=== PATIENT | male | born 1945 | race Caucasian/White ===

== ENCOUNTER 2017-05-10 21:02 | Emergency (ER) | payer MEDICARE, MEDICAID ==
[2017-05-10 21:02] VITALS: BMI 29.2
[2017-05-10 21:13] VITALS: BP 104/70; PULSE 91; RESP 18; TEMP 98.1; O2SAT 97
--- NOTE | 2017-05-10 21:56 | C.PDOC ---
History Of Present Illness 72 year old male with a Hx of CAD, CABG, cataract surgery, and rheumatoid arthritis presents to the ER with a complaint of redness to the right eye. Patient states he went for a nap at approximately 15:00 in the afternoon and when he woke up at approximately 17:00 he noted a reddish discoloration involving the whites of his eyes. Patient notes he has been sneezing lately and has a Hx of COPD on home oxygen. Denies visual disturbances, ocular pain, ocular discharge, or recent trauma. Chief Complaint (Nursing): ENT Problem History Per: Patient History/Exam Limitations: no limitations Onset/Duration Of Symptoms: Hrs Current Symptoms Are (Timing): Still Present Recent travel outside of the [place]: No Past Medical History Reviewed: Historical Data, Nursing Documentation, Vital Signs Vital Signs: Last Vital Signs Temp 98.1 F 05/10/17 21:13 Pulse 91 H 05/10/17 21:13 Resp 18 05/10/17 21:13 BP 104/70 05/10/17 21:13 Pulse Ox 97 05/10/17 23:10 - Medical History PMH: Alzheimer's Disease, Arthritis, Asthma, Back Problems, CAD, COPD, Diabetes , Fractures, HTN, Hyperlipidemia, Sleep Apnea Surgical History: Back Surgery (T-spine), CABG - [facility] Procedures ASSISTANCE WITH RESPIRATORY VENTILATION, 24-96 HRS (05/24/15) ASSISTANCE WITH RESPIRATORY VENTILATION, <24 HRS, CPAP (07/31/15) EXERCISE TRMT MUSCULOSK LOW BACK/LE W ASSIST EQUIP (03/02/16) EXTRACTION OF ILIAC BONE MARROW, PERCUTANEOUS APPROACH (06/27/15) FUSION 2-7 T JT W AUTOL SUB, POST APPR P COL, OPEN (06/27/15) GAIT TRAINING/AMBULAT TREATMENT USING ASSIST EQUIPMENT (03/02/16) HOME MANAGEMENT TREATMENT USING ASSIST EQUIPMENT (03/02/16) INTRODUCTION OF SERUM/TOX/VACCINE INTO MUSCLE, PERC APPROACH (07/31/15) ROM & JT MOBILITY TRMT MUSCULOSK LOW BACK/LE W ASSIST EQUIP (03/02/16) TRANSFUSE NONAUT PLATELETS IN PERIPH VEIN, PERC (06/25/16) TRANSFUSE NONAUT RED BLOOD CELLS IN PERIPH VEIN, PERC (06/25/16) Family History: States: Unknown Family Hx - Social History Hx Tobacco Use: Yes Hx Alcohol Use: No Hx Substance Use: No - Immunization History Hx Influenza Vaccination: Yes Review Of Systems Constitutional: Negative for: Fever, Chills Eyes: Positive for: Other (Conjunctival hemorrhage). Negative for: Pain, Vision Change Physical Exam - Physical Exam Appears: Non-toxic, No Acute Distress Skin: Normal Color, Warm, Dry Head: Atraumatic, Normacephalic Eye(s): bilateral: Normal Inspection (Lens replacement noted), PERRL, EOMI, right: Other (Reddish discoloration consistent with subconjunctival hemorrhage) Ear(s): Bilateral: Normal Nose: Normal Oral Mucosa: Moist Throat: Normal, No Erythema Neck: Normal, Supple Chest: Symmetrical Cardiovascular: Rhythm Regular Respiratory: No Rales, No Rhonchi, Wheezing (Expiratory) Gastrointestinal/Abdominal: Soft, No Tenderness Extremity: Deformity ([place] neck consistent with rheumatoid arthritis to bilateral upper extremities) Neurological/Psych: Oriented x3, Normal Speech, Normal Cranial Nerves ED Course And Treatment O2 Sat by Pulse Oximetry: 97 (Room air) Pulse Ox Interpretation: Normal Medical Decision Making Medical Decision Making: Impression: Nontraumatic subconjunctival hemorrhage, patient is safe and stable for discharge. Disposition - Disposition Referrals: [facility] at [facility] [Outside] Disposition: HOME/ ROUTINE Disposition Time: 00:49 Condition: GOOD Instructions: Subconjunctival Hemorrhage (ED) Forms: [facility] (Monegasque) Print Language: VENEZU[place] - Clinical Impression Clinical Impression: Subconjunctival hemorrhage - Scribe Statement The provider has reviewed the documentation as recorded by the Scribe Perico Horan All medical record entries made by the Scribe were at my direction and personally dictated by me. I have reviewed the chart and agree that the record accurately reflects my personal performance of the history, physical exam, medical decision making, and the department course for this patient. I have also personally directed, reviewed, and agree with the discharge instructions and disposition.
== END 2017-05-10 22:17 | disposition home or self-care (01) ==
LOC: C.ER 21:02
DX: H11.31 Conjunctival hemorrhage, right eye (principal)

== ENCOUNTER 2017-06-18 14:21 | Inpatient (IN) | payer MEDICARE, MEDICAID ==
[2017-06-18 14:48] VITALS: BMI 28.8
[2017-06-18] MEDS ORDERED: Albuterol-Ipratrop 3 mg / 0.5 (3 ml) UD IH STA ×2 (16:21→16:24)
[2017-06-18] MEDS ORDERED: Albuterol 0.083% Inhal Sol (2.5 mg/3 mL) UD IH STA (16:24)
[2017-06-18 16:42] LABS: LYMPH # 0.9 K/uL (1.0-4.3); MEAN CORPUSCULAR HGB CONC 31.9 g/dL (33.0-37.0); MEAN PLATELET VOLUME 11.6 fL (7.2-11.7); MONO # 0.9 K/uL (0.0-0.8)
--- NOTE | 2017-06-18 16:50 | RAD ---
PROCEDURE: CHEST RADIOGRAPH, 1 VIEW HISTORY: SOB COMPARISON: 06/11/2013 FINDINGS: LUNGS: Bibasilar opacities present - mostly strandy type. Discoid atelectasis and scarring suggested. Concomitant patchy bibasilar infiltrates also possible. The prior left lateral opacity - now appears more pleural-parenchymal. Concomitant right inferolateral pleural thickening blends with right basal patchy opacity. An element of concomitant thick emphysematous changes and bibasilar bronchiectasis suspect PLEURA: No pneumothorax. Interval progressive inferolateral pleural thickening with bibasilar strandy atelectatic changes and/or fibrosis suggested. CARDIOVASCULAR: Mild cardiomegaly OSSEOUS STRUCTURES: Interval thoracic fusion hardware single frontal view available -. VISUALIZED UPPER ABDOMEN: Normal. OTHER FINDINGS: Right hemidiaphragm is asymmetrically elevated an interval change compared the prior study. Correlate clinically IMPRESSION: Interval basilar patchy coalescing linear opacities- mixed pathology: Bibasilar fibrosis/scarring with bronchiectasis in bordering inferolateral pleural thickening favored. Interval elevation the right hemidiaphragm - lung volumes now more shallow. Interval thoracic spinal hardware present
[2017-06-18 16:51] LABS: PROTHROMBIN TIME 10.9 SECONDS (9.7-12.2)
[2017-06-18] MEDS ORDERED: Albuterol 0.083% Inhal Sol (2.5 mg/3 mL) UD ONE (16:51)
[2017-06-18] MEDS ORDERED: Albuterol-Ipratrop 3 mg / 0.5 (3 ml) UD ONE (16:52)
[2017-06-18 16:53] LABS: BASO % 0.4 % (0.0-2.0); HEMOGLOBIN 12.1 g/dL (12.0-18.0); MEAN CELL VOLUME 94.5 fL (80.0-94.0); MEAN CORPUSCULAR HEMOGLOBIN 30.2 pg (27.0-31.0); MONO % 13.9 % (0.0-10.0); NEUT # 4.4 K/uL (1.8-7.0); NEUT % 71.7 % (50.0-75.0); NRBC % 0.1 % (0.0-2.0); RBC 4.02 Mil/uL (4.40-5.90); RED CELL DISTRIBUTION WIDTH 20.6 % (11.5-14.5); WHITE BLOOD COUNT 6.1 K/uL (4.8-10.8)
[2017-06-18 16:54] LABS: PLATELET COUNT 103 K/uL (130-400)
[2017-06-18 17:02] LABS: ALB/GLOB RATIO 0.9 (1.0-2.1); ALBUMIN 3.4 g/dL (3.5-5.0); ALT/SGPT 24 U/L (21-72); AST/SGOT 41 U/L (17-59); BLOOD UREA NITROGEN 32 mg/dL (9-20); CALCIUM 8.7 mg/dl (8.6-10.4); GFR AFRICAN-AMERICAN > 60; GFR NON-AFRICAN AMERICAN > 60
--- NOTE | 2017-06-18 17:16 | C.PDOC ---
History Of Present Illness 72 year old male with PMHx of COPD presents to the ED c/o increased SOB and productive cough for the past 5 weeks. Due to patient's COPD history he is on home oxygen, patient reports his oxygen saturation numbers are usually in the high 80s and low 90s. Patient was seen by Dr. Larson who found him to be worse than usual so he was sent here for evaluation. Patient denies CP, back pain, fever, chills, nausea, vomit, diarrhea. Time Seen by Provider: 06/18/17 15:58 Chief Complaint (Nursing): Shortness Of Breath History Per: Patient History/Exam Limitations: no limitations Onset/Duration Of Symptoms: Days Current Symptoms Are (Timing): Still Present Quality: "Pain" Current Respiratory Medications: See Home Med List Associated Symptoms: Productive Cough Recent travel outside of the [place]: No Additional History Per: Patient Past Medical History Reviewed: Historical Data, Nursing Documentation, Vital Signs Vital Signs: Last Vital Signs Temp 98.6 F 06/18/17 14:48 Pulse 80 06/18/17 16:40 Resp 27 H 06/18/17 16:40 BP 104/69 06/18/17 14:48 Pulse Ox 90 L 06/18/17 18:21 - Medical History PMH: Alzheimer's Disease, Arthritis, Asthma, Back Problems, CAD, COPD, Diabetes , Fractures, HTN, Hyperlipidemia, Sleep Apnea Denies: CHF, Hepatitis, HIV, Hypercholesterolemia, Hypothyroidism, Chronic Kidney Disease, Rheumatoid Arthritis, Seizures, Sexually Transmitted Disease Surgical History: Back Surgery (T-spine), CABG - [facility] Procedures ASSISTANCE WITH RESPIRATORY VENTILATION, 24-96 HRS (05/24/15) ASSISTANCE WITH RESPIRATORY VENTILATION, <24 HRS, CPAP (07/31/15) EXERCISE TRMT MUSCULOSK LOW BACK/LE W ASSIST EQUIP (03/02/16) EXTRACTION OF ILIAC BONE MARROW, PERCUTANEOUS APPROACH (06/27/15) FUSION 2-7 T JT W AUTOL SUB, POST APPR P COL, OPEN (06/27/15) GAIT TRAINING/AMBULAT TREATMENT USING ASSIST EQUIPMENT (03/02/16) HOME MANAGEMENT TREATMENT USING ASSIST EQUIPMENT (03/02/16) INTRODUCTION OF SERUM/TOX/VACCINE INTO MUSCLE, PERC APPROACH (07/31/15) ROM & JT MOBILITY TRMT MUSCULOSK LOW BACK/LE W ASSIST EQUIP (03/02/16) TRANSFUSE NONAUT PLATELETS IN PERIPH VEIN, PERC (06/25/16) TRANSFUSE NONAUT RED BLOOD CELLS IN PERIPH VEIN, PERC (06/25/16) Family History: States: Unknown Family Hx - Social History Hx Tobacco Use: Yes Hx Alcohol Use: No Hx Substance Use: No - Immunization History Hx Influenza Vaccination: No Hx Pneumococcal Vaccination: Yes Review Of Systems Constitutional: Negative for: Fever, Chills Cardiovascular: Negative for: Chest Pain, Palpitations Respiratory: Positive for: Cough, Shortness of Breath, Sputum Gastrointestinal: Negative for: Nausea, Vomiting, Abdominal Pain, Diarrhea Genitourinary: Negative for: Dysuria, Hematuria Musculoskeletal: Negative for: Back Pain Skin: Negative for: Rash Neurological: Negative for: Weakness, Numbness, Headache, Dizziness Physical Exam - Physical Exam Appears: Non-toxic, Other (Uncomfortable ) Skin: Normal Color, Warm, Dry Head: Atraumatic, Normacephalic Eye(s): bilateral: Normal Inspection Nose: No Discharge, No Deformity Oral Mucosa: Moist Lips: Other (Mild cyanotic) Neck: Normal ROM, Supple Chest: Symmetrical Cardiovascular: Rhythm Regular, No Murmur Respiratory: Rales (B/L at the bases, L > R), No Rhonchi, No Wheezing Gastrointestinal/Abdominal: Soft, No Tenderness, No Guarding, No Rebound Extremity: Normal ROM, No Pedal Edema, No Calf Tenderness, No Deformity, No Swelling Neurological/Psych: Oriented x3, Normal Speech, Normal Cognition Gait: Steady ED Course And Treatment - Laboratory Results Result Diagrams: 06/18/17 16:33 06/18/17 16:33 ECG Rhythm: Sinus Rhythm, R BBB Rate From EC O2 Sat by Pulse Oximetry: 90 (On RA) - Other Rad CXR X-Ray: Viewed By Me, Read By Radiologist Interpretation: PROCEDURE: CHEST RADIOGRAPH, 1 VIEW. HISTORY: SOB. COMPARISON: 06/11/2013. FINDINGS: LUNGS: Bibasilar opacities present - mostly strandy type. Discoid atelectasis and scarring suggested. Concomitant patchy bibasilar infiltrates also possible. The prior left lateral opacity - now appears more pleural-parenchymal. Concomitant right inferolateral pleural thickening blends with right basal patchy opacity. An element of concomitant thick emphysematous changes and bibasilar bronchiectasis suspect. PLEURA: No pneumothorax. Interval progressive inferolateral pleural thickening with bibasilar strandy atelectatic changes and/or fibrosis suggested. CARDIOVASCULAR : Mild cardiomegaly. OSSEOUS STRUCTURES: Interval thoracic fusion hardware single frontal view available -. VISUALIZED UPPER ABDOMEN: Normal. OTHER FINDINGS: Right hemidiaphragm is asymmetrically elevated an interval change compared the prior study. Correlate clinically. IMPRESSION: Interval basilar patchy coalescing linear opacities- mixed pathology: Bibasilar fibrosis/ scarring with bronchiectasis in bordering inferolateral pleural thickening favored. Interval elevation the right hemidiaphragm - lung volumes now more shallow. Interval thoracic spinal hardware present Progress Note: Plan: -EKG. -Labs. -CXR. -Albuterol 2m5 mg IH. -Duoneb 3 ml IH (x2). -Solumedrol 125 mg IVP. -O2 nasal cannula. CBC- bandemia. Avelox IV ordered. Patient was give O2 in the ED initially later was increased to 4 L after which O2 improved to 92. Plan is to keep the patient in the hospital for observation. - Physician Consult Information Physician Contacted: Mercedez Larson Outcome Of Conversation: Accepted to [facility] for admission, consult Pulmo , Order Chest CT Disposition - Disposition Disposition: HOSPITALIZED Disposition Time: 18:20 Condition: SERIOUS Forms: [facility] (Argentine) - Clinical Impression Clinical Impression: COPD (chronic obstructive pulmonary disease), Bandemia - PA / FUR STRETCHER / Resident Statement MD/DO has reviewed & agrees with the documentation as recorded. - Scribe Statement The provider has reviewed the documentation as recorded by the Scribe Dane Belel All medical record entries made by the Debbiibadamaris were at my direction and personally dictated by me. I have reviewed the chart and agree that the record accurately reflects my personal performance of the history, physical exam, medical decision making, and the department course for this patient. I have also personally directed, reviewed, and agree with the discharge instructions and disposition.
[2017-06-18 17:41] LABS: LYMPHOCYTE 14 % (20-40); METAMYELOCYTE 1 % (0-0); NEUTROPHIL 46 % (50-75); REACTIVE LYMPHOCYTES 7 % (0-0); TOTAL CELLS COUNTED 100
[2017-06-18 17:43] LABS: BANDS 21 % (0-2); MONOCYTE 11 % (0-10)
[2017-06-18 17:46] LABS: PLATELET ESTIMATE SLIGHTLY DECREASED (NORMAL)
[2017-06-18 17:47] LABS: MICROCYTOSIS SLIGHT
[2017-06-18 17:48] LABS: GIANT PLATELETS PRESENT; LARGE PLATELETS PRESENT; PLATELET CLUMPS PRESENT
[2017-06-18] MEDS ORDERED: Moxifloxacin IV 400mg/250ml NS 400 MG/250 ML BAG IV STA (17:54)
[2017-06-18 18:00] LABS: ABG ALLEN TEST PO; ARTERIAL BLOOD GAS HCO3 29.9 mmol/L (21-28); ARTERIAL BLOOD GAS PCO2 51 mm/Hg (35-45); ARTERIAL BLOOD GAS PH 7.41 (7.35-7.45); ARTERIAL BLOOD GAS PO2 52 mm/Hg (80-100); ARTERIAL BLOOD GAS TCO2 33.9 mmol/L (22-28)
[2017-06-18 18:12] LABS: VENOUS BLOOD GAS BASE EXCESS 14.8 mmol/L (0.0-2.0); VENOUS BLOOD GAS PCO2 76 mmHg (40-60); VENOUS BLOOD GAS PO2 20 mm/Hg (30-55); VENOUS BLOOD PH 7.37 (7.32-7.43)
[2017-06-18] MEDS ORDERED: Moxifloxacin IV 400mg/250ml NS 400 MG/250 ML BAG IVPB ONE (19:15)
[2017-06-18] MEDS: MethylPREDNISolone 40 mg Vial IVP SCH (19:24)
[2017-06-18] MEDS ORDERED: MethylPREDNISolone 40 mg Vial ONE (19:27)
[2017-06-18] MEDS: Albuterol-Ipratrop 3 mg / 0.5 (3 ml) UD INH SCH (19:35)
[2017-06-18 22:06] LABS: ABG ALLEN TEST POS; ARTERIAL BLOOD GAS HEMOGLOBIN 10.5 g/dL (11.7-17.4); ARTERIAL BLOOD GAS O2 SAT 97.2 % (95-98); ARTERIAL BLOOD GAS PCO2 61 mm/Hg (35-45); ARTERIAL BLOOD GAS PH 7.42 (7.35-7.45); ARTERIAL BLOOD GAS PO2 66 mm/Hg (80-100); ARTERIAL BLOOD GAS TCO2 41.5 mmol/L (22-28)
[2017-06-19] MEDS: MethylPREDNISolone 40 mg Vial IVP SCH ×4 (01:06→20:00)
[2017-06-19] MEDS: Albuterol-Ipratrop 3 mg / 0.5 (3 ml) UD INH SCH ×4 (01:55→20:00)
[2017-06-19] MEDS: Aztreonam 1 GM in Sodium Chloride 0.9% 100 ML IVPB SCH ×2 (09:55→18:01)
[2017-06-19] MEDS ORDERED: Fluticasone-Salmeterol 250-50mcg Diskus IH SCH (10:00)
[2017-06-19] MEDS: Fluticasone Nasal 50 mcg/Spray NAS SCH ×2 (10:09→21:14)
--- NOTE | 2017-06-19 17:06 | CP.PCM.CON ---
History of Present Illness - History of Present Illness History of Present Illness: Pt is a 72 year old male with PMHx of COPD, HTN, CAD, RA who was admitted on for COPD exacerbation. Pt was sent to ED from PMD, Dr. Larson's, office for severe shortness of breath and cough with yellow sputum that began 5-6 days prior to arrival. Treatment with home oxygen and nebulizer treatments provided no improvement. Pt denied fever, chills, chest pain. Today, pt is feeling much better after having recieved Duoneb and steroid treatments, however still complains of some shortness of breath and cough with yellow-white sputum production. Pt denies fever, chills, chest pain, hemoptysis. PMHx: COPD, HTN, CAD, RA, chronic neck pain PSHx: CABG, cervical spine surgery, L hip surgery Medicaions: Clopedogrel 75mg PO QWK, Vit D 5000 Units QWK, Advair 1 puff iNH QD , Fenofibrate 145mg PO daily, prednisone 5mg PO BID, Singulair 10mg PO QHS, Lactulose 30mg PO QHS PRN, Lasix 20mg PO daily, Atorvastatin 20mg PO QHS. Allergies: Penicillin-rash Family Hx: Unknown Social Hx: Pt smoked 2ppd for 58 years. Denies drug and alcohol use. Lives at home with . Exam: Diminished breath sounds R>L A/P: COPD exacerbation Duoneb treatments Q6H Methylprednisolone 60mg Q6H BiPAP as needed Continue antibiotics Influenza A/B Serology Sputum cultures 06/18/17 ABG: pCO2 61, pO2: 66, HCO3 35, pH 7.42 06/18/17 VBG: pCO2 76, HCO3 34.6, pH 7.34 06/18/17 CXR: Interval basilar patchy coalescing linear opacities- mixed pathology: Bibasilar fibrosis/scarring with bronchiectasis in bordering inferolateral pleural thickening favored. Interval elevation the right hemidiaphragm - lung volumes now more shallow. Interval thoracic spinal hardware present Follow up Chest CT Past Patient History - Past Medical History & Family History Past Medical History?: Yes - Past Social History Smoking Status: Former Smoker - CARDIAC Hx Cardiac Disorders: Yes - PULMONARY Hx Chronic Obstructive Pulmonary Disease (COPD): Yes - NEUROLOGICAL Hx Alzheimer's Disease: Yes Hx Seizures: No - HEENT Hx HEENT Problems: Yes - RENAL Hx Chronic Kidney Disease: No - ENDOCRINE/METABOLIC Hx Diabetes Mellitus Type 2: Yes - HEMATOLOGICAL/ONCOLOGICAL Hx Human Immunodeficiency Virus (HIV): No - INTEGUMENTARY Hx Dermatological Problems: No - MUSCULOSKELETAL/RHEUMATOLOGICAL Hx Arthritis: Yes - GASTROINTESTINAL Hx Gastrointestinal Disorders: No - GENITOURINARY/GYNECOLOGICAL Hx Sexually Transmitted Disorders: No - PSYCHIATRIC Hx Substance Use: No - SURGICAL HISTORY Hx Coronary Artery Bypass Graft: Yes - ANESTHESIA Hx Anesthesia: Yes Hx Anesthesia Reactions: No Hx Malignant Hyperthermia: No Meds Allergies/Adverse Reactions: Allergies Allergy/AdvReac Type Severity Reaction Status Date / Time Penicillins Allergy Unknown RASH Verified 06/18/17 14:45 - Medications Medications: Current Medications Acetaminophen (Tylenol 325mg Tab) 650 mg PO Q6 PRN PRN Reason: Pain, moderate (4-7) Last Admin: 06/19/17 12:31 Dose: 650 mg Albuterol/Ipratropium (Duoneb 3 Mg/0.5 Mg (3 Ml) Ud) 3 ml INH RQ6 [facility] Last Admin: 06/19/17 13:44 Dose: 3 ml Bisoprolol Fumarate (Zebeta) 5 mg PO DAILY [facility] Last Admin: 06/19/17 09:39 Dose: Not Given Clopidogrel Bisulfate (Plavix) 75 mg PO QWK [facility] Docusate Sodium (Colace) 100 mg PO BID [facility] Last Admin: 06/19/17 09:41 Dose: 100 mg Fenofibrate (Tricor) 145 mg PO DAILY [facility] Last Admin: 06/19/17 09:41 Dose: 145 mg Fluticasone Propionate (Flonase) 1 spr CHRISTIAN RBID [facility] Last Admin: 06/19/17 10:09 Dose: 1 spr Furosemide (Lasix) 20 mg PO DAILY [facility] Last Admin: 06/19/17 09:37 Dose: Not Given Heparin Sodium (Porcine) (Heparin) 5,000 units SC Q12 [facility] Last Admin: 06/19/17 09:41 Dose: 5,000 units Aztreonam 1 gm/ Sodium (Chloride) 100 mls @ 200 mls/hr IVPB Q8H [facility] Last Admin: 06/19/17 09:55 Dose: 200 mls/hr Lactulose (Enulose) 30 gm PO HS PRN PRN Reason: Constipation Methylprednisolone (Solu-Medrol) 60 mg IVP Q6H [facility] Last Admin: 06/19/17 14:25 Dose: 60 mg Montelukast Sodium (Singulair) 10 mg PO HS PREM Rosuvastatin Calcium (Crestor) 10 mg PO HS PREM Fluticasone/Salmeterol (Advair Diskus 250/50) 1 puff IH RQ12 [facility] Last Admin: 06/19/17 10:42 Dose: 1 puff Results - Vital Signs Recent Vital Signs: Last Vital Signs Temp 98.2 F 06/19/17 14:00 Pulse 102 H 06/19/17 15:30 Resp 18 06/19/17 14:00 BP 101/61 06/19/17 14:00 Pulse Ox 97 06/19/17 15:30 - Labs Result Diagrams: 06/18/17 16:33 06/18/17 16:33 Labs: Laboratory Results - last 24 hr 06/18/17 06/18/17 06/18/17 14:54 16:33 16:33 Neutrophils % (Manual) 46 L Band Neutrophils % 21 H* Lymphocytes % (Manual) 14 L Reactive Lymphs % 7 H Monocytes % (Manual) 11 H Metamyelocytes % 1 H Platelet Estimate Slightly decreased L Plt Clumps, EDTA Present Large Platelets Present Giant Platelets Present Microcytosis (manual) Slight Puncture Site pCO2 pO2 HCO3 ABG pH ABG Total CO2 ABG O2 Saturation ABG Base Excess ABG Hemoglobin ABG Carboxyhemoglobin POC ABG HHb (Measured) ABG Methemoglobin Andrei Test VBG pH VBG pCO2 VBG HCO3 VBG Total CO2 VBG O2 Sat (Calc) VBG Base Excess VBG Potassium A-a O2 Difference Respiratory Index Hgb O2 Saturation Sodium Chloride Glucose Lactate Liter Flow FiO2 Inspiratory BiPAP Expiratory BiPAP Blood Gas Comments Crit Value Called To Crit Value Called By Crit Value Read Back Blood Gas Notified Time Carbon Dioxide 40 H* Anion Gap 10 POC Glucose (mg/dL) 77 Venous Blood Potassium 06/18/17 06/18/17 06/18/17 17:55 18:07 22:00 Neutrophils % (Manual) Band Neutrophils % Lymphocytes % (Manual) Reactive Lymphs % Monocytes % (Manual) Metamyelocytes % Platelet Estimate Plt Clumps, EDTA Large Platelets Giant Platelets Microcytosis (manual) Puncture Site Lr Lba pCO2 51 H 61 H pO2 52 L 20 L 66 L HCO3 29.9 H 35.0 H ABG pH 7.41 7.42 ABG Total CO2 33.9 H 41.5 H ABG O2 Saturation 92.0 L 97.2 ABG Base Excess 6.6 H 13.0 H ABG Hemoglobin 10.0 L 10.5 L ABG Carboxyhemoglobin 2.6 H 2.5 H POC ABG HHb (Measured) 7.7 H 2.7 ABG Methemoglobin 1.1 1.2 Andrei Test Po Pos VBG pH 7.37 VBG pCO2 76 H* VBG HCO3 34.6 VBG Total CO2 46.2 H VBG O2 Sat (Calc) 37.4 L VBG Base Excess 14.8 H VBG Potassium 4.1 A-a O2 Difference 141.0 107.0 Respiratory Index 2.7 1.6 Hgb O2 Saturation 88.6 L 93.6 L Sodium 136.0 Chloride 97.0 L Glucose 136 H Lactate 1.6 Liter Flow 4.0 FiO2 36.0 35.0 Inspiratory BiPAP 12 Expiratory BiPAP 6 Blood Gas Comments Vbg sample Crit Value Called To Dr. norman Crit Value Called By Eladio quiroz Crit Value Read Back Y Blood Gas Notified Time 181 Carbon Dioxide Anion Gap POC Glucose (mg/dL) Venous Blood Potassium 4.1 06/18/17 06/19/17 06/19/17 23:02 06:38 11:31 Neutrophils % (Manual) Band Neutrophils % Lymphocytes % (Manual) Reactive Lymphs % Monocytes % (Manual) Metamyelocytes % Platelet Estimate Plt Clumps, EDTA Large Platelets Giant Platelets Microcytosis (manual) Puncture Site pCO2 pO2 HCO3 ABG pH ABG Total CO2 ABG O2 Saturation ABG Base Excess ABG Hemoglobin ABG Carboxyhemoglobin POC ABG HHb (Measured) ABG Methemoglobin Andrei Test VBG pH VBG pCO2 VBG HCO3 VBG Total CO2 VBG O2 Sat (Calc) VBG Base Excess VBG Potassium A-a O2 Difference Respiratory Index Hgb O2 Saturation Sodium Chloride Glucose Lactate Liter Flow FiO2 Inspiratory BiPAP Expiratory BiPAP Blood Gas Comments Crit Value Called To Crit Value Called By Crit Value Read Back Blood Gas Notified Time Carbon Dioxide Anion Gap POC Glucose (mg/dL) 165 H 144 H 133 H Venous Blood Potassium
[2017-06-19 20:52] LABS: LEGIONELLA AG URINE NEGATIVE (NEGATIVE); MYCOPLASMA PNEUMONIAE IGM NEGATIVE (NEGATIVE)
[2017-06-20] MEDS: MethylPREDNISolone 40 mg Vial IVP SCH ×4 (00:47→19:40)
[2017-06-20] MEDS: Aztreonam 1 GM in Sodium Chloride 0.9% 100 ML IVPB SCH ×3 (00:47→16:45)
[2017-06-20] MEDS: Albuterol-Ipratrop 3 mg / 0.5 (3 ml) UD INH SCH ×4 (02:41→21:16)
--- NOTE | 2017-06-20 04:11 | HP ---
HISTORY OF PRESENT ILLNESS: This is a 72-year-old [place] male with history of multiple medical problems including chronic obstructive pulmonary disease, rheumatoid arthritis, coronary artery disease, hypertension, presented on the day of admission with symptoms of progressive shortness of breath and cough with expectoration of yellowish sputum. Patient was evaluated in the emergency room and he was admitted for further management. Patient also was placed on BiPAP as per Pulmonary. The chest x-ray showed interval basilar patchy opacities. ALLERGIES: POSITIVE FOR PENICILLIN. MEDICATIONS: As per MAR. PAST MEDICAL HISTORY: As above. SOCIAL HISTORY: Ex-smoker. No EtOH or substance abuse. FAMILY HISTORY: Noncontributory. PHYSICAL EXAMINATION: GENERAL: The patient is in bed, comfortable, not in any cardiopulmonary distress. VITAL SIGNS: Blood pressure 101/61, temperature 98.2, respiratory rate 18, pulse 99. HEENT: Pupils equal, reactive to light. Normal-appearing mucosa of the conjunctivae, oropharyngeal and nasal membrane mucosa. NECK: Supple. No JVD. No carotid bruit. No lymph node. No thyromegaly. CHEST AND LUNGS: Bilateral symmetrical expansion. Good air exchange. No rales. No rhonchi. CARDIOVASCULAR SYSTEM: PMI not localized. S1, S2. No additional sounds. ABDOMEN: Normoactive bowel sounds. No tenderness. No organomegaly. No masses. EXTREMITIES: No cyanosis, no clubbing, no edema. CENTRAL NERVOUS SYSTEM: Alert, awake, oriented x2. No neurological deficit could be appreciated. ASSESSMENT: 1. Pneumonia. 2. Exacerbation of chronic obstructive pulmonary disease. 3. Hypertension. 4. Type 2 diabetes mellitus. 5. Advanced rheumatoid arthritis. 6. Osteoarthritis. PLAN: Continue current medications as ordered by core dipper and antibiotics, both aztreonam and azithromycin. Nicci MD Neo
[2017-06-20] MEDS: Fluticasone Nasal 50 mcg/Spray NAS SCH ×2 (08:32→19:40)
--- NOTE | 2017-06-20 10:38 | CARD ---
APPROVED REPORT EKG Measurement Heart [id number] ID [id number] <Conclusion> Normal sinus rhythm Right bundle branch block Inferior infarct, age undetermined Abnormal ECG
[2017-06-20 12:16] LABS: ALB/GLOB RATIO 0.9 (1.0-2.1); ALBUMIN 2.8 g/dL (3.5-5.0); ALT/SGPT 20 U/L (21-72); AST/SGOT 24 U/L (17-59); BLOOD UREA NITROGEN 39 mg/dL (9-20); CALCIUM 8.6 mg/dl (8.6-10.4); GFR AFRICAN-AMERICAN > 60; GFR NON-AFRICAN AMERICAN > 60
--- NOTE | 2017-06-20 17:19 | CP.PCM.PN ---
Subjective - Date & Time of Evaluation Date of Evaluation: 06/20/17 Time of Evaluation: 10:25 - Subjective Subjective: Pt was seen and evaluated at bedside. Pt in NAD. Currently On 3L NC. Pt states he feels there has been no improvement since yesterday. Complains of continuing shortness of breath an dry cough. Denies fevers, chills, chest pain, hemoptysis. Was placed on BiPAP overnight for O2 sat of 93 which then improved to 96%. Exam: Crackles bilateral bases A/P: COPD exacerbation Continue Duoneb treatments Q6H Continue Methylprednisolone 60mg Q6H BiPAP as needed Influenza A/B Serology 06/18/17 ABG: pCO2 61, pO2: 66, HCO3 35, pH 7.42 06/18/17 VBG: pCO2 76, HCO3 34.6, pH 7.34 Pneumonia Continue antibiotics- Azithromycin 500mg IVBP Q24H, Aztreonam 1gm IVPB Q8H 06/18/17 CXR: Interval basilar patchy coalescing linear opacities- mixed pathology: Bibasilar fibrosis/scarring with bronchiectasis in bordering inferolateral pleural thickening favored. Interval elevation the right hemidiaphragm - lung volumes now more shallow. Interval thoracic spinal hardware present Objective - Vital Signs/Intake and Output Vital Signs (last 24 hours): Temp Pulse Resp BP Pulse Ox 97.4 F L 86 20 102/69 93 L 06/20/17 07:34 06/20/17 08:00 06/20/17 07:34 06/20/17 10:22 06/20/17 07:34 Intake and Output: 06/20/17 06/20/17 06:59 18:59 Intake Total 600 Output Total 250 270 Balance -250 330 - Medications Medications: Current Medications Acetaminophen (Tylenol 325mg Tab) 650 mg PO Q6 PRN PRN Reason: Pain, moderate (4-7) Last Admin: 06/20/17 08:38 Dose: 650 mg Albuterol/Ipratropium (Duoneb 3 Mg/0.5 Mg (3 Ml) Ud) 3 ml INH RQ6 [facility] Last Admin: 06/20/17 13:50 Dose: 3 ml Azithromycin (Zithromax) 500 mg PO Q24H [facility] Bisoprolol Fumarate (Zebeta) 5 mg PO DAILY [facility] Last Admin: 06/20/17 10:22 Dose: 5 mg Clopidogrel Bisulfate (Plavix) 75 mg PO QWK [facility] Docusate Sodium (Colace) 100 mg PO BID [facility] Last Admin: 06/20/17 10:16 Dose: 100 mg Fenofibrate (Tricor) 145 mg PO DAILY [facility] Last Admin: 06/20/17 10:16 Dose: 145 mg Fluticasone Propionate (Flonase) 1 spr CHRISTIAN RBID [facility] Last Admin: 06/20/17 08:32 Dose: 1 spr Furosemide (Lasix) 20 mg PO DAILY [facility] Last Admin: 06/20/17 10:22 Dose: 20 mg Heparin Sodium (Porcine) (Heparin) 5,000 units SC Q12 [facility] Last Admin: 06/20/17 10:17 Dose: 5,000 units Aztreonam 1 gm/ Sodium (Chloride) 100 mls @ 200 mls/hr IVPB Q8H [facility] Last Admin: 06/20/17 16:45 Dose: 200 mls/hr Lactulose (Enulose) 30 gm PO HS PRN PRN Reason: Constipation Methylprednisolone (Solu-Medrol) 60 mg IVP Q6H [facility] Last Admin: 06/20/17 13:17 Dose: 60 mg Montelukast Sodium (Singulair) 10 mg PO HS [facility] Last Admin: 06/19/17 21:16 Dose: 10 mg Rosuvastatin Calcium (Crestor) 10 mg PO HS [facility] Last Admin: 06/19/17 21:15 Dose: 10 mg - Labs Labs: 06/18/17 16:33 06/20/17 11:48 PT 10.9 SECONDS (9.7-12.2) 06/18/17 16:33 INR 1.0 06/18/17 16:33 APTT 39 SECONDS (21-34) H 06/18/17 16:33
[2017-06-20] MEDS ORDERED: guaiFENesin 200 mg/10 ml Syrup UD PO ONE (21:20)
[2017-06-21] MEDS: MethylPREDNISolone 40 mg Vial IVP SCH ×4 (00:57→20:00)
[2017-06-21] MEDS: Aztreonam 1 GM in Sodium Chloride 0.9% 100 ML IVPB SCH ×3 (00:57→17:41)
[2017-06-21] MEDS: Albuterol-Ipratrop 3 mg / 0.5 (3 ml) UD INH SCH ×4 (01:34→21:48)
[2017-06-21] MEDS: Fluticasone Nasal 50 mcg/Spray NAS SCH ×2 (07:41→21:50)
--- NOTE | 2017-06-21 12:21 | CP.PCM.PN ---
Subjective - Date & Time of Evaluation Date of Evaluation: 06/21/17 Time of Evaluation: 08:00 - Subjective Subjective: Patient seen and examined Still complaining of cough and shortness of breath Afebrile No chest pain Objective - Vital Signs/Intake and Output Vital Signs (last 24 hours): Temp Pulse Resp BP Pulse Ox 97.4 F L 69 20 109/72 97 06/21/17 07:00 06/21/17 07:00 06/21/17 07:00 06/21/17 10:30 06/21/17 07:00 Intake and Output: 06/21/17 06/21/17 06:59 18:59 Intake Total 340 Output Total 240 Balance 100 - Medications Medications: Current Medications Acetaminophen (Tylenol 325mg Tab) 650 mg PO Q6 PRN PRN Reason: Pain, moderate (4-7) Last Admin: 06/21/17 00:56 Dose: 650 mg Albuterol/Ipratropium (Duoneb 3 Mg/0.5 Mg (3 Ml) Ud) 3 ml INH RQ6 [facility] Last Admin: 06/21/17 07:22 Dose: 3 ml Azithromycin (Zithromax) 500 mg PO Q24H [facility] Last Admin: 06/20/17 17:36 Dose: 500 mg Bisoprolol Fumarate (Zebeta) 5 mg PO DAILY [facility] Last Admin: 06/21/17 10:31 Dose: 5 mg Clopidogrel Bisulfate (Plavix) 75 mg PO QWK [facility] Docusate Sodium (Colace) 100 mg PO BID [facility] Last Admin: 06/21/17 10:30 Dose: 100 mg Fenofibrate (Tricor) 145 mg PO DAILY [facility] Last Admin: 06/21/17 10:30 Dose: 145 mg Fluticasone Propionate (Flonase) 1 spr CHRISTIAN RBID [facility] Last Admin: 06/21/17 07:41 Dose: 1 spr Furosemide (Lasix) 20 mg PO DAILY [facility] Last Admin: 06/21/17 10:30 Dose: 20 mg Heparin Sodium (Porcine) (Heparin) 5,000 units SC Q12 [facility] Last Admin: 06/21/17 10:30 Dose: 5,000 units Aztreonam 1 gm/ Sodium (Chloride) 100 mls @ 200 mls/hr IVPB Q8H [facility] Last Admin: 06/21/17 08:48 Dose: 200 mls/hr Lactulose (Enulose) 30 gm PO HS PRN PRN Reason: Constipation Methylprednisolone (Solu-Medrol) 60 mg IVP Q6H [facility] Last Admin: 06/21/17 07:41 Dose: 60 mg Montelukast Sodium (Singulair) 10 mg PO [facility] Last Admin: 06/20/17 21:43 Dose: 10 mg Rosuvastatin Calcium (Crestor) 10 mg PO [facility] Last Admin: 06/20/17 21:43 Dose: 10 mg - Labs Labs: 06/18/17 16:33 06/20/17 11:48 PT 10.9 SECONDS (9.7-12.2) 06/18/17 16:33 INR 1.0 06/18/17 16:33 APTT 39 SECONDS (21-34) H 06/18/17 16:33 - Head Exam Head Exam: ATRAUMATIC, NORMOCEPHALIC - Eye Exam Eye Exam: Normal appearance - ENT Exam ENT Exam: Mucous Membranes Moist - Neck Exam Neck Exam: Normal Inspection - Respiratory Exam Respiratory Exam: Decreased Breath Sounds - Cardiovascular Exam Cardiovascular Exam: REGULAR RHYTHM - GI/Abdominal Exam GI & Abdominal Exam: Soft, Normal Bowel Sounds Assessment and Plan (1) Pneumonia Assessment & Plan: continue antibiotics Followup culture and sensitivity Status: Acute (2) COPD exacerbation Assessment & Plan: taper IV steroids BiPAP as needed Nebulizer treatment Status: Acute
[2017-06-22] MEDS: Albuterol-Ipratrop 3 mg / 0.5 (3 ml) UD INH SCH ×4 (01:16→20:04)
[2017-06-22] MEDS: MethylPREDNISolone 40 mg Vial IVP SCH ×2 (01:40→08:09)
[2017-06-22] MEDS: Aztreonam 1 GM in Sodium Chloride 0.9% 100 ML IVPB SCH ×3 (01:40→18:07)
[2017-06-22] MEDS: Fluticasone Nasal 50 mcg/Spray NAS SCH ×2 (08:18→20:04)
[2017-06-22 08:38] LABS: HEMOGLOBIN 10.4 g/dL (12.0-18.0); MEAN CELL VOLUME 94.8 fL (80.0-94.0); MEAN CORPUSCULAR HEMOGLOBIN 30.2 pg (27.0-31.0); MEAN CORPUSCULAR HGB CONC 31.8 g/dL (33.0-37.0); MEAN PLATELET VOLUME 12.4 fL (7.2-11.7); RBC 3.44 Mil/uL (4.40-5.90); RED CELL DISTRIBUTION WIDTH 19.9 % (11.5-14.5); WHITE BLOOD COUNT 2.6 K/uL (4.8-10.8)
[2017-06-22 09:09] LABS: ALB/GLOB RATIO 0.9 (1.0-2.1); ALBUMIN 2.8 g/dL (3.5-5.0); ALT/SGPT 30 U/L (21-72); AST/SGOT 31 U/L (17-59); BLOOD UREA NITROGEN 34 mg/dL (9-20); CALCIUM 8.7 mg/dl (8.6-10.4); GFR AFRICAN-AMERICAN > 60; GFR NON-AFRICAN AMERICAN > 60
[2017-06-22] MEDS ORDERED: MethylPREDNISolone 40 mg Vial IVP SCH (16:30)
--- NOTE | 2017-06-22 19:59 | PN ---
DATE: 06/20/2017 DAILY PROGRESS NOTE SUBJECTIVE: Patient was seen on 06/20/2017. He was in no respiratory distress at the time of this examination. PHYSICAL EXAMINATION: VITAL SIGNS: Blood pressure 94/57, temperature 97.6, respiratory rate 20 and pulse 85. HEENT: Pupils equal, reactive to light. Normal-appearing mucosa of the conjunctivae, oropharynx and nasal membrane mucosa. NECK: Supple. No JVD. No carotid bruit. No lymph node. No thyromegaly. CHEST AND LUNGS: Bilateral symmetrical expansion. Good air exchange. No rales. There are scattered rhonchi. CARDIOVASCULAR SYSTEM: PMI not localized. S1 and S2. No additional sounds. ABDOMEN: Normoactive bowel sounds. No tenderness. No organomegaly. No masses. EXTREMITIES: No cyanosis, no clubbing, no edema. CENTRAL NERVOUS SYSTEM: Alert, awake, oriented x2. No neurological deficit could be appreciated. ASSESSMENT: Pneumonia, exacerbation of chronic obstructive pulmonary disease, severe advanced rheumatoid arthritis, coronary artery disease status post coronary artery bypass graft. 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 Mercedez Larson MD
--- NOTE | 2017-06-22 20:11 | CP.PCM.PN ---
Subjective - Date & Time of Evaluation Date of Evaluation: 06/22/17 Time of Evaluation: 17:10 - Subjective Subjective: patient seen and examined Cough and shortness of breath much improved On CPAP at night Afebrile No chest pain Dyspnea on minimal exertion Continue antibiotics Switch to oral steroids Objective - Vital Signs/Intake and Output Vital Signs (last 24 hours): Temp Pulse Resp BP Pulse Ox 97.4 F L 63 20 106/56 L 92 L 06/22/17 15:18 06/22/17 16:00 06/22/17 15:18 06/22/17 15:18 06/22/17 15:18 - Medications Medications: Current Medications Acetaminophen (Tylenol 325mg Tab) 650 mg PO Q6 PRN PRN Reason: Pain, moderate (4-7) Last Admin: 06/21/17 00:56 Dose: 650 mg Albuterol/Ipratropium (Duoneb 3 Mg/0.5 Mg (3 Ml) Ud) 3 ml INH RQ6 [facility] Last Admin: 06/22/17 20:04 Dose: 3 ml Azithromycin (Zithromax) 500 mg PO Q24H [facility] Last Admin: 06/22/17 18:07 Dose: 500 mg Bisoprolol Fumarate (Zebeta) 5 mg PO DAILY [facility] Last Admin: 06/22/17 11:11 Dose: 5 mg Clopidogrel Bisulfate (Plavix) 75 mg PO QWK [facility] Docusate Sodium (Colace) 100 mg PO BID [facility] Last Admin: 06/22/17 18:07 Dose: 100 mg Fenofibrate (Tricor) 145 mg PO DAILY [facility] Last Admin: 06/22/17 11:11 Dose: 145 mg Fluticasone Propionate (Flonase) 1 spr CHRISTIAN RBID [facility] Last Admin: 06/22/17 20:04 Dose: 1 spr Furosemide (Lasix) 20 mg PO DAILY [facility] Last Admin: 06/22/17 11:11 Dose: 20 mg Aztreonam 1 gm/ Sodium (Chloride) 100 mls @ 200 mls/hr IVPB Q8H [facility] Last Admin: 06/22/17 18:07 Dose: 200 mls/hr Lactulose (Enulose) 30 gm PO HS PRN PRN Reason: Constipation Methylprednisolone (Solu-Medrol) 40 mg IVP Q12H [facility] Last Admin: 06/22/17 18:07 Dose: 40 mg Montelukast Sodium (Singulair) 10 mg PO HS [facility] Last Admin: 06/21/17 21:47 Dose: 10 mg Rosuvastatin Calcium (Crestor) 10 mg PO [facility] Last Admin: 06/21/17 21:47 Dose: 10 mg - Labs Labs: 06/22/17 08:18 06/22/17 08:18 PT 10.9 SECONDS (9.7-12.2) 06/18/17 16:33 INR 1.0 06/18/17 16:33 APTT 39 SECONDS (21-34) H 06/18/17 16:33 Assessment and Plan (1) Pneumonia Status: Acute (2) COPD exacerbation Status: Acute
--- NOTE | 2017-06-22 20:26 | PN ---
DATE: 06/21/2017 DAILY PROGRESS NOTE SUBJECTIVE: Patient is seen in 06/21/2017. He was in no respiratory distress. PHYSICAL EXAMINATION: VITAL SIGNS: Blood pressure 92/57, temperature 97.4, respiratory rate 20 and pulse 69. HEENT: Pupils equal, reactive to light. Normal-appearing mucosa of the conjunctivae, oropharynx and nasal membrane mucosa. NECK: Supple. No JVD. No carotid bruit. No lymph node. No thyromegaly. CHEST AND LUNGS: Bilateral symmetrical expansion. Good air exchange. No rales, no rhonchi. CARDIOVASCULAR SYSTEM: PMI not localized. S1 and S2. No additional sounds. ABDOMEN: Normoactive bowel sounds. No tenderness. No organomegaly. No masses. EXTREMITIES: No cyanosis, no clubbing, no edema. CENTRAL NERVOUS SYSTEM: Alert, awake, oriented x2 and no neurological deficit could be appreciated. ASSESSMENT: Exacerbation of chronic obstructive pulmonary disease, pneumonia, advanced rheumatoid arthritis, degenerative spine disease, coronary artery disease. PLAN: Continue current antibiotics as well as bronchodilators. Follow Pulmonary recommendations. Mercedez Larson MD
--- NOTE | 2017-06-22 20:34 | PN ---
DATE: 06/22/2017 DAILY PROGRESS NOTE SUBJECTIVE: Patient is seen today, 06/22/2017. He is having mild cough, but not in any respiratory distress. PHYSICAL EXAMINATION: VITAL SIGNS: Blood pressure 106/68, temperature 98.0, respiratory rate 18 and pulse 62. HEENT: Pupils equal, reactive to light. Normal-appearing mucosa of the conjunctivae, oropharynx and nasal membrane mucosa. NECK: Supple. No JVD. No carotid bruit. No lymph node. No thyromegaly. CHEST AND LUNGS: Bilateral symmetrical expansion. Decreased air entry both lower lung gardiner with scattered rhonchi. CARDIOVASCULAR SYSTEM: PMI not localized. S1 and S2. No additional sounds. ABDOMEN: Normoactive bowel sounds. No tenderness. No organomegaly. No masses. EXTREMITIES: No cyanosis, no clubbing, no edema. CENTRAL NERVOUS SYSTEM: Alert, awake, oriented x3. No neurological deficit could be appreciated. ASSESSMENT: Exacerbation of chronic obstructive pulmonary disease, pneumonia, hypertension, type 2 diabetes mellitus, degenerative spine disease, coronary artery disease, advanced rheumatoid arthritis. PLAN: Continue current medications and taper steroids as per Pulmonary recommendations. Mercedez Larson MD
[2017-06-22] MEDS: Promethazine DM 6.25 mg-15 mg/5 ml Syrup PO SCH (21:48)
[2017-06-23] MEDS: Albuterol-Ipratrop 3 mg / 0.5 (3 ml) UD INH SCH ×4 (01:08→19:04)
[2017-06-23] MEDS: Aztreonam 1 GM in Sodium Chloride 0.9% 100 ML IVPB SCH ×3 (01:30→17:51)
[2017-06-23] MEDS: Fluticasone Nasal 50 mcg/Spray NAS SCH ×2 (08:25→22:05)
[2017-06-23 08:31] LABS: HEMOGLOBIN 10.8 g/dL (12.0-18.0); LYMPH # 1.1 K/uL (1.0-4.3); MEAN CELL VOLUME 95.2 fL (80.0-94.0); MEAN CORPUSCULAR HEMOGLOBIN 30.4 pg (27.0-31.0); MEAN CORPUSCULAR HGB CONC 31.9 g/dL (33.0-37.0); MEAN PLATELET VOLUME 11.8 fL (7.2-11.7); MONO # 0.6 K/uL (0.0-0.8); MONO % 13.9 % (0.0-10.0); NEUT # 2.5 K/uL (1.8-7.0); NEUT % 59.1 % (50.0-75.0); NRBC % 0.7 % (0.0-2.0); RBC 3.55 Mil/uL (4.40-5.90); RED CELL DISTRIBUTION WIDTH 20.4 % (11.5-14.5); WHITE BLOOD COUNT 4.2 K/uL (4.8-10.8)
[2017-06-23 09:03] LABS: BLOOD UREA NITROGEN 36 mg/dL (9-20); CALCIUM 8.7 mg/dl (8.6-10.4); GFR AFRICAN-AMERICAN > 60; GFR NON-AFRICAN AMERICAN > 60
[2017-06-23] MEDS: Promethazine DM 6.25 mg-15 mg/5 ml Syrup PO SCH ×3 (10:52→17:53)
[2017-06-24] MEDS: Aztreonam 1 GM in Sodium Chloride 0.9% 100 ML IVPB SCH ×3 (00:07→18:00)
[2017-06-24 01:30] VITALS: RESP 20
--- NOTE | 2017-06-24 04:05 | PN ---
DATE: 06/23/2017 DAILY PROGRESS NOTE SUBJECTIVE: Patient is seen today, 06/23/2017. He is not in any cardiopulmonary distress. PHYSICAL EXAMINATION: VITAL SIGNS: Blood pressure 113/64, temperature 98.5, respiratory rate 20 and pulse 74. HEENT: Pupils equal, reactive to light. Normal-appearing mucosa of the conjunctivae, oropharynx, and nasal membrane mucosa. NECK: Supple. No JVD. No carotid bruit. No lymph node. No thyromegaly. CHEST AND LUNGS: Bilateral symmetrical expansion. Good air exchange. No rales. There are scattered rhonchi. CARDIOVASCULAR SYSTEM: PMI not localized. S1, S2. No additional sounds. ABDOMEN: Normoactive bowel sounds. No tenderness. No organomegaly. No masses. EXTREMITIES: No cyanosis, no clubbing, no edema. CENTRAL NERVOUS SYSTEM: Alert, awake, oriented x2. No neurological deficit could be appreciated. ASSESSMENT: 1. Exacerbation of chronic obstructive pulmonary disease. 2. Pneumonia. 3. Severe advanced rheumatoid arthritis. 4. Osteoarthritis. PLAN: Continue current medications and follow up with Pulmonary recommendations. Mercedez Larson MD
[2017-06-24] MEDS: Fluticasone Nasal 50 mcg/Spray NAS SCH (08:17)
[2017-06-24] MEDS: Promethazine DM 6.25 mg-15 mg/5 ml Syrup PO SCH ×3 (09:13→18:32)
[2017-06-24 12:29] LABS: ABG ALLEN TEST POS; ARTERIAL BLOOD GAS HCO3 38.7 mmol/L (21-28); ARTERIAL BLOOD GAS HEMOGLOBIN 11.9 g/dL (11.7-17.4); ARTERIAL BLOOD GAS O2 SAT 83.3 % (95-98); ARTERIAL BLOOD GAS PCO2 71 mm/Hg (35-45); ARTERIAL BLOOD GAS PH 7.42 (7.35-7.45); ARTERIAL BLOOD GAS PO2 42 mm/Hg (80-100); ARTERIAL BLOOD GAS TCO2 48.3 mmol/L (22-28)
--- NOTE | 2017-06-24 18:03 | CP.PCM.PN ---
Subjective - Date & Time of Evaluation Date of Evaluation: 06/24/17 Time of Evaluation: 11:00 - Subjective Subjective: Pt was seen and evaluated at bedside. SpO2 97% On 3L NC. Pt continues to complain of shortness of breath with exertion and at rest and cough with white sputum. Denies fevers, chills, chest pain, hemoptysis. Exam: Diminished breath sounds at bases A/P: COPD exacerbation Continue Duoneb treatments Q6H Continue Prednisone 20mg PO daily BiPAP at night , Pt will benefit from TRILOGY 06/24/17 ABG: pCO2 71, pO2: 42, HCO3 38.7, pH 7.42 06/18/17 ABG: pCO2 61, pO2: 66, HCO3 35, pH 7.42 06/18/17 VBG: pCO2 76, HCO3 34.6, pH 7.34 06/19/17 mycoplasma pneumonia and L.pneumophila: negative Pneumonia Continue antibiotics- Azithromycin 500mg IVBP Q24H, Aztreonam 1gm IVPB Q8H 06/18/17 CXR: Interval basilar patchy coalescing linear opacities- mixed pathology: Bibasilar fibrosis/scarring with bronchiectasis in bordering inferolateral pleural thickening favored. Interval elevation the right hemidiaphragm - lung volumes now more shallow. Interval thoracic spinal hardware present Objective - Vital Signs/Intake and Output Vital Signs (last 24 hours): Temp Pulse Resp BP Pulse Ox 97.9 F 62 20 105/67 97 06/24/17 15:24 06/24/17 15:24 06/24/17 15:24 06/24/17 15:24 06/24/17 15:24 Intake and Output: 06/24/17 06/24/17 06:59 18:59 Intake Total 800 340 Output Total 850 400 Balance -50 -60 - Medications Medications: Current Medications Acetaminophen (Tylenol 325mg Tab) 650 mg PO Q6 PRN PRN Reason: Pain, moderate (4-7) Last Admin: 06/22/17 21:47 Dose: 650 mg Azithromycin (Zithromax) 500 mg PO Q24H [facility] Last Admin: 06/23/17 17:54 Dose: 500 mg Bisoprolol Fumarate (Zebeta) 5 mg PO DAILY [facility] Last Admin: 06/24/17 09:10 Dose: 5 mg Clopidogrel Bisulfate (Plavix) 75 mg PO QWK [facility] Docusate Sodium (Colace) 100 mg PO BID [facility] Last Admin: 06/24/17 09:10 Dose: 100 mg Fenofibrate (Tricor) 145 mg PO DAILY [facility] Last Admin: 06/24/17 09:10 Dose: 145 mg Fluticasone Propionate (Flonase) 1 spr CHRISTIAN RBID [facility] Last Admin: 06/24/17 08:17 Dose: 1 spr Furosemide (Lasix) 20 mg PO DAILY [facility] Last Admin: 06/24/17 09:10 Dose: 20 mg Heparin Sodium (Porcine) (Heparin) 5,000 units SC Q12 [facility] Last Admin: 06/24/17 09:12 Dose: 5,000 units Aztreonam 1 gm/ Sodium (Chloride) 100 mls @ 200 mls/hr IVPB Q8H [facility] Last Admin: 06/24/17 09:13 Dose: 200 mls/hr Lactulose (Enulose) 30 gm PO HS PRN PRN Reason: Constipation Montelukast Sodium (Singulair) 10 mg PO HS [facility] Last Admin: 06/23/17 22:10 Dose: 10 mg Prednisone (Prednisone Tab) 20 mg PO DAILY [facility] Last Admin: 06/24/17 09:10 Dose: 20 mg Promethazine HCl/Dextromethorphan (Phenergan Dm Syrup) 5 ml PO TID [facility] Last Admin: 06/24/17 14:08 Dose: 5 ml Rosuvastatin Calcium (Crestor) 10 mg PO HS [facility] Last Admin: 06/23/17 22:04 Dose: 10 mg - Labs Labs: 06/23/17 08:16 06/23/17 08:16 PT 10.9 SECONDS (9.7-12.2) 06/18/17 16:33 INR 1.0 06/18/17 16:33 APTT 39 SECONDS (21-34) H 06/18/17 16:33 Assessment and Plan (1) Pneumonia Status: Acute (2) COPD exacerbation Status: Acute
[2017-06-25] MEDS: Aztreonam 1 GM in Sodium Chloride 0.9% 100 ML IVPB SCH ×2 (00:27→09:00)
--- NOTE | 2017-06-25 01:19 | PN ---
DATE: 06/24/2017 DAILY PROGRESS NOTE SUBJECTIVE: Patient is seen today, 06/24/2017. He is having still some wheezing and some shortness of breath on exertion. PCO2 is 71 and the ABG that was done today with PO2 of 42 and pH of 7.42. FiO2 is 21% on room air. PHYSICAL EXAMINATION: VITAL SIGNS: Blood pressure is 105/67, temperature 97.9, respiratory rate 20 and pulse 62. HEENT: Pupils equal, reactive to light. Normal-appearing mucosa of the conjunctivae, oropharyngeal and nasal membrane mucosa. NECK: Supple. No JVD. No carotid bruit. No lymph node. No thyromegaly. CHEST AND LUNGS: Bilateral symmetrical expansion. Good air exchange. No rales, no rhonchi. CARDIOVASCULAR SYSTEM: PMI not localized. S1, S2. No additional sounds. ABDOMEN: Normoactive bowel sounds. No tenderness. No organomegaly. No masses. EXTREMITIES: No cyanosis, no clubbing, no edema. CENTRAL NERVOUS SYSTEM: Alert, awake, oriented x3. No neurological deficit could be appreciated. ASSESSMENT: 1. Severe chronic obstructive pulmonary disease, on home oxygen with CO2 retention and pCO2 today on room air is 71 mmHg with well-compensated pH of 7.4. 2. Advanced rheumatoid arthritis. 3. Coronary artery disease. 4. Hypertension. PLAN: Continue current medications and oxygen supplement and will follow with Pulmonary for further recommendations. Mercedez Larson MD
[2017-06-25 08:19] VITALS: TEMP 98
[2017-06-25] MEDS: Promethazine DM 6.25 mg-15 mg/5 ml Syrup PO SCH ×2 (09:21→13:29)
[2017-06-25] MEDS: Fluticasone Nasal 50 mcg/Spray NAS SCH (09:24)
[2017-06-25 11:31] LABS: BASO % 0.2 % (0.0-2.0); HEMOGLOBIN 11.4 g/dL (12.0-18.0); LYMPH # 1.1 K/uL (1.0-4.3); LYMPH % 15.5 % (20.0-40.0); MEAN CELL VOLUME 94.6 fL (80.0-94.0); MEAN CORPUSCULAR HEMOGLOBIN 29.8 pg (27.0-31.0); MEAN CORPUSCULAR HGB CONC 31.5 g/dL (33.0-37.0); MEAN PLATELET VOLUME 11.4 fL (7.2-11.7); MONO % 13.8 % (0.0-10.0); NEUT % 70.5 % (50.0-75.0); NRBC % 0.3 % (0.0-2.0); RBC 3.84 Mil/uL (4.40-5.90); RED CELL DISTRIBUTION WIDTH 20.2 % (11.5-14.5); WHITE BLOOD COUNT 7.1 K/uL (4.8-10.8)
[2017-06-25 12:52] LABS: BLOOD UREA NITROGEN 30 mg/dL (9-20); CALCIUM 8.3 mg/dl (8.6-10.4); GFR AFRICAN-AMERICAN > 60; GFR NON-AFRICAN AMERICAN > 60
--- NOTE | 2017-06-25 14:22 | CP.PCM.PN ---
Subjective - Date & Time of Evaluation Date of Evaluation: 06/25/17 Time of Evaluation: 11:30 - Subjective Subjective: [employer] NOT[employer] Patient seen today, awake, alert, oriented, c/o sob with activity and cough, denies any fever, chills, abdominal pain, N/V/ using BIPAP on and off Objective - Vital Signs/Intake and Output Vital Signs (last 24 hours): Temp Pulse Resp BP Pulse Ox 98 F 69 20 115/72 98 06/25/17 07:00 06/25/17 07:40 06/25/17 07:00 06/25/17 09:23 06/25/17 07:00 Intake and Output: 06/25/17 06/25/17 06:59 18:59 Intake Total 110 Output Total 150 Balance -40 - Medications Medications: Current Medications Acetaminophen (Tylenol 325mg Tab) 650 mg PO Q6 PRN PRN Reason: Pain, moderate (4-7) Last Admin: 06/22/17 21:47 Dose: 650 mg Azithromycin (Zithromax) 500 mg PO Q24H [facility] Last Admin: 06/24/17 18:32 Dose: 500 mg Bisoprolol Fumarate (Zebeta) 5 mg PO DAILY [facility] Last Admin: 06/25/17 09:21 Dose: 5 mg Clopidogrel Bisulfate (Plavix) 75 mg PO QWK [facility] Last Admin: 06/25/17 09:20 Dose: 75 mg Docusate Sodium (Colace) 100 mg PO BID [facility] Last Admin: 06/25/17 09:20 Dose: 100 mg Fenofibrate (Tricor) 145 mg PO DAILY [facility] Last Admin: 06/25/17 09:21 Dose: 145 mg Fluticasone Propionate (Flonase) 1 spr CHRISTIAN RBID [facility] Last Admin: 06/25/17 09:24 Dose: 1 spr Furosemide (Lasix) 20 mg PO DAILY [facility] Last Admin: 06/25/17 09:23 Dose: 20 mg Heparin Sodium (Porcine) (Heparin) 5,000 units SC Q12 [facility] Last Admin: 06/25/17 09:24 Dose: 5,000 units Lactulose (Enulose) 30 gm PO HS PRN PRN Reason: Constipation Montelukast Sodium (Singulair) 10 mg PO HS [facility] Last Admin: 06/24/17 22:15 Dose: 10 mg Prednisone (Prednisone Tab) 20 mg PO DAILY [facility] Last Admin: 06/25/17 09:20 Dose: 20 mg Promethazine HCl/Dextromethorphan (Phenergan Dm Syrup) 5 ml PO TID [facility] Last Admin: 06/25/17 13:29 Dose: 5 ml Rosuvastatin Calcium (Crestor) 10 mg PO HS [facility] Last Admin: 06/24/17 22:15 Dose: 10 mg - Labs Labs: 06/25/17 11:27 06/25/17 11:27 PT 10.9 SECONDS (9.7-12.2) 06/18/17 16:33 INR 1.0 06/18/17 16:33 APTT 39 SECONDS (21-34) H 06/18/17 16:33 - Constitutional Appears: Well, No Acute Distress - Respiratory Exam Respiratory Exam: Decreased Breath Sounds (mild resp . distress ) - Neurological Exam Neurological Exam: Alert, Awake, Oriented x3 Assessment and Plan - Assessment and Plan (Free Text) Assessment: A/P 72 yr old mal e with PMHx of COPD on home oxygen admitted for incr. SOB and cough Pateint started on antibiotics and clinically improved ABG - done - (ABG: pCO2 71, pO2: 42, HCO3 38.7, pH 7.42) and Dr. Malone arranged home triology seen today by Dr. Malone and cleared for discharge home from pulmonary standpoint and continue 5 days zithromycin seen by Dr. Larson , stable for discharge home to[place] and f/u with Dr. Larson offic e in 1 week discharge plan discussed with patient , who understands and agrees with plan
[2017-06-25 15:29] VITALS: BP 99/65; PULSE 85; O2SAT 96
--- NOTE | 2017-06-25 17:12 | CP.PCM.PN ---
Subjective - Date & Time of Evaluation Date of Evaluation: 06/25/17 Time of Evaluation: 12:45 - Subjective Subjective: Pt was seen and evaluated at bedside. SpO2 96% On BiPAP. Pt states shortness of breath is persistent and continues to have cough with white sputum. Denies fevers, chills, chest pain, hemoptysis. Exam: Diminished breath sounds at bases A/P: COPD exacerbation To be discharged to home with PO steroids and Trilogy ventilator- to be used PRN. Use CPAP at night. 06/24/17 ABG: pCO2 71, pO2: 42, HCO3 38.7, pH 7.42 06/18/17 ABG: pCO2 61, pO2: 66, HCO3 35, pH 7.42 06/18/17 VBG: pCO2 76, HCO3 34.6, pH 7.34 06/19/17 mycoplasma pneumonia and L.pneumophila: negative Pneumonia Completed antibiotics 06/18/17 CXR: Interval basilar patchy coalescing linear opacities- mixed pathology: Bibasilar fibrosis/scarring with bronchiectasis in bordering inferolateral pleural thickening favored. Interval elevation the right hemidiaphragm - lung volumes now more shallow. Interval thoracic spinal hardware present Objective - Vital Signs/Intake and Output Vital Signs (last 24 hours): Temp Pulse Resp BP Pulse Ox 98 F 85 20 99/65 L 96 06/25/17 15:25 06/25/17 15:25 06/25/17 15:25 06/25/17 15:25 06/25/17 15:25 Intake and Output: 06/25/17 06/25/17 06:59 18:59 Intake Total 110 Output Total 150 Balance -40 - Medications Medications: Current Medications Acetaminophen (Tylenol 325mg Tab) 650 mg PO Q6 PRN PRN Reason: Pain, moderate (4-7) Last Admin: 06/22/17 21:47 Dose: 650 mg Azithromycin (Zithromax) 500 mg PO Q24H [facility] Last Admin: 06/24/17 18:32 Dose: 500 mg Bisoprolol Fumarate (Zebeta) 5 mg PO DAILY [facility] Last Admin: 06/25/17 09:21 Dose: 5 mg Clopidogrel Bisulfate (Plavix) 75 mg PO QWK [facility] Last Admin: 06/25/17 09:20 Dose: 75 mg Docusate Sodium (Colace) 100 mg PO BID [facility] Last Admin: 06/25/17 09:20 Dose: 100 mg Fenofibrate (Tricor) 145 mg PO DAILY [facility] Last Admin: 06/25/17 09:21 Dose: 145 mg Fluticasone Propionate (Flonase) 1 spr CHRISTIAN RBID [facility] Last Admin: 06/25/17 09:24 Dose: 1 spr Furosemide (Lasix) 20 mg PO DAILY [facility] Last Admin: 06/25/17 09:23 Dose: 20 mg Heparin Sodium (Porcine) (Heparin) 5,000 units SC Q12 [facility] Last Admin: 06/25/17 09:24 Dose: 5,000 units Lactulose (Enulose) 30 gm PO HS PRN PRN Reason: Constipation Montelukast Sodium (Singulair) 10 mg PO HS [facility] Last Admin: 06/24/17 22:15 Dose: 10 mg Prednisone (Prednisone Tab) 20 mg PO DAILY [facility] Last Admin: 06/25/17 09:20 Dose: 20 mg Promethazine HCl/Dextromethorphan (Phenergan Dm Syrup) 5 ml PO TID [facility] Last Admin: 06/25/17 13:29 Dose: 5 ml Rosuvastatin Calcium (Crestor) 10 mg PO HS [facility] Last Admin: 06/24/17 22:15 Dose: 10 mg - Labs Labs: 06/25/17 11:27 06/25/17 11:27 PT 10.9 SECONDS (9.7-12.2) 06/18/17 16:33 INR 1.0 06/18/17 16:33 APTT 39 SECONDS (21-34) H 06/18/17 16:33 Assessment and Plan (1) Pneumonia Status: Acute (2) COPD exacerbation Status: Acute
--- NOTE | 2017-06-26 03:18 | DS ---
REASON FOR ADMISSION: This is a 72-year-old [place] male with severe COPD, on home oxygen therapy, was admitted after evaluated in emergency room because of severe exacerbation of COPD. COURSE OF HOSPITALIZATION: Patient was admitted to medical floor and he was started on BiPAP. Patient had pulmonary consultation done by Dr. Malone and he was started on IV steroids, IV antibiotics and bronchodilators. Patient gradually responded and decision was to discharge him on noninvasive ventilator therapy as the patient was still a CO2 retainer with pCO2 was 71 mmHg with normal pH. FINAL DIAGNOSES: 1. Severe chronic obstructive pulmonary disease. 2. Pneumonia. 3. Coronary artery disease, status post coronary artery bypass graft. 4. Hypertension. [facility] MD Neo
== END 2017-06-25 17:19 | disposition home or self-care (01) | DRG 190 ==
LOC: C.ER 14:21 → C.9E 18:18 → C.6T 19:25 → OBSVTOIN 06-19 17:37
PROVIDERS: ADMIT Internal Medicine; ATTEND Internal Medicine
PROC: 5A09557 Assistance with Respiratory Ventilation, Greater than 96 Consecutive Hours, Continuous Positive Airway Pressure (ICD-10-PCS; principal; 2017-06-19)
DX: J44.0 Chronic obstructive pulmonary disease with (acute) lower respiratory infection (principal); J18.9 Pneumonia, unspecified organism; J44.1 Chronic obstructive pulmonary disease with (acute) exacerbation; J47.0 Bronchiectasis with acute lower respiratory infection; Z99.81 Dependence on supplemental oxygen; E11.9 Type 2 diabetes mellitus without complications; G30.9 Alzheimer's disease, unspecified; F02.80 Dementia in other diseases classified elsewhere, unspecified severity, without behavioral disturbance, psychotic disturbance, mood disturbance, and anxiety; I10 Essential (primary) hypertension; I25.10 Atherosclerotic heart disease of native coronary artery without angina pectoris; G47.30 Sleep apnea, unspecified; M06.9 Rheumatoid arthritis, unspecified; E78.5 Hyperlipidemia, unspecified; M19.90 Unspecified osteoarthritis, unspecified site; Z87.891 Personal history of nicotine dependence; Z95.1 Presence of aortocoronary bypass graft

== ENCOUNTER 2017-08-30 00:28 | Inpatient (IN) | payer MEDICARE, MEDICAID ==
[2017-08-30 00:28] VITALS: BMI 28.8
--- NOTE | 2017-08-30 00:43 | C.PDOC ---
History Of Present Illness Patient presents to the ER with a complaint RLQ pain that began a few hours ago. Patient has a Hx of COPD on home O2. He is currently speaking in complete sentences; denies fever, chills, nausea, or vomiting. Time Seen by Provider: 08/30/17 00:42 Chief Complaint (Nursing): Abdominal Pain History Per: Patient History/Exam Limitations: no limitations Onset/Duration Of Symptoms: Hrs Current Symptoms Are (Timing): Still Present Severity: Moderate Pain Scale Rating Of: 4 Location Of Pain/Discomfort: Epigastric Radiation Of Pain To:: None Quality Of Discomfort: Unable To Describe Associated Symptoms: denies: Fever, Chills, Nausea, Vomiting Exacerbating Factors: None Alleviating Factors: None Recent travel outside of the [place]: No Additional History Per: Family Past Medical History Reviewed: Historical Data, Nursing Documentation, Vital Signs Vital Signs: Last Vital Signs Temp 97.9 F 08/30/17 00:31 Pulse 62 08/30/17 00:31 Resp 20 08/30/17 00:31 BP 102/62 08/30/17 00:31 Pulse Ox 97 08/30/17 01:19 - Medical History PMH: Alzheimer's Disease, Arthritis, Asthma, Back Problems, CAD, COPD, Diabetes , Fractures, HTN, Hyperlipidemia, Sleep Apnea Surgical History: Back Surgery (T-spine), CABG - [facility] Procedures ASSISTANCE WITH RESPIRATORY VENTILATION, 24-96 HRS (05/24/15) ASSISTANCE WITH RESPIRATORY VENTILATION, <24 HRS, CPAP (07/31/15) ASSISTANCE WITH RESPIRATORY VENTILATION, >96 HRS, CPAP (06/19/17) EXERCISE TRMT MUSCULOSK LOW BACK/LE W ASSIST EQUIP (03/02/16) EXTRACTION OF ILIAC BONE MARROW, PERCUTANEOUS APPROACH (06/27/15) FUSION 2-7 T JT W AUTOL SUB, POST APPR P COL, OPEN (06/27/15) GAIT TRAINING/AMBULAT TREATMENT USING ASSIST EQUIPMENT (03/02/16) HOME MANAGEMENT TREATMENT USING ASSIST EQUIPMENT (03/02/16) INTRODUCTION OF SERUM/TOX/VACCINE INTO MUSCLE, PERC APPROACH (07/31/15) ROM & JT MOBILITY TRMT MUSCULOSK LOW BACK/LE W ASSIST EQUIP (03/02/16) TRANSFUSE NONAUT PLATELETS IN PERIPH VEIN, PERC (06/25/16) TRANSFUSE NONAUT RED BLOOD CELLS IN PERIPH VEIN, PERC (06/25/16) Family History: States: No Known Family Hx - Social History Hx Tobacco Use: Yes Hx Alcohol Use: No Hx Substance Use: No - Immunization History Hx Influenza Vaccination: No Hx Pneumococcal Vaccination: Yes Review Of Systems Constitutional: Negative for: Fever, Chills ENT: Negative for: Throat Pain Cardiovascular: Negative for: Chest Pain, Palpitations Respiratory: Negative for: Cough Gastrointestinal: Positive for: Abdominal Pain. Negative for: Nausea, Vomiting Genitourinary: Negative for: Dysuria Musculoskeletal: Negative for: Back Pain Skin: Negative for: Rash Neurological: Negative for: Weakness Psych: Negative for: Anxiety Physical Exam - Physical Exam Appears: Non-toxic Skin: Warm, Dry Head: Normacephalic Eye(s): bilateral: Normal Inspection Oral Mucosa: Moist Neck: Supple Chest: No Tenderness, Other (Midline CABG scar) Cardiovascular: Rhythm Regular Respiratory: Decreased Breath Sounds, No Rales, Rhonchi (At the bases), No Wheezing Gastrointestinal/Abdominal: Bowel Sounds (Active), Soft, No Tenderness, Distention, Hernia (Small reducible) Back: No CVA Tenderness Male Genital: Other (Large right inguinal hernia, unable to reduce due to pain) Extremity: Normal ROM Extremity: Bilateral: Atraumatic Pulses: Left Dorsalis Pedis: Normal, Right Dorsalis Pedis: Normal Neurological/Psych: Oriented x3 Gait: Steady ED Course And Treatment - Laboratory Results Result Diagrams: 08/30/17 00:58 08/30/17 01:29 ECG: Interpreted By Me, Viewed By Me ECG Rhythm: Sinus Rhythm (63), R BBB, Nonspecific Changes O2 Sat by Pulse Oximetry: 97 Pulse Ox Interpretation: Normal Progress Note: Blood work and urinalysis ordered. Morphine and pepcid administered. Disposition Discussed With DrHarpal: Mercedez Larson Comment: accepted the pt onhis service and took over the care at 4:30 AM Doctor Will See Patient In The: Hospital Counseled Patient/Family Regarding: Studies Performed, Diagnosis - Disposition Disposition: HOSPITALIZED Disposition Time: 00:42 Condition: FAIR Forms: [facility] (Indonesian) - POA Present On Arrival: Poor Glycemic Control - Clinical Impression Clinical Impression: Abdominal pain, COPD (chronic obstructive pulmonary disease), Pneumonia, Pancreatic mass - Scribe Statement The provider has reviewed the documentation as recorded by the Scribe Perico Horan All medical record entries made by the Debbiibe were at my direction and personally dictated by me. I have reviewed the chart and agree that the record accurately reflects my personal performance of the history, physical exam, medical decision making, and the department course for this patient. I have also personally directed, reviewed, and agree with the discharge instructions and disposition. Decision To Admit - Pt Status Changed To: Hospital Disposition Of: Inpatient - Admit Certification Admit to Inpatient:: After my assessment, the patient will require hospitalization for at least two midnights. This is because of the severity of symptoms shown, intensity of services needed, and/or the medical risk in this patient being treated as an outpatient. - InPatient: Physician Admission Certification:: After my assessment, the patient will require hospitalization for at least two midnights. This is because of the severity of symptoms shown, intensity of services needed, and/or the medical risk in this patient being treated as an outpatient. - . Bed Request Type: Regular Admitting Physician: Mercedez Larson Patient Diagnosis: Abdominal pain, COPD (chronic obstructive pulmonary disease), Pneumonia, Pancreatic mass
[2017-08-30 01:12] LABS: INR 0.9
[2017-08-30] MEDS ORDERED: Morphine 4 MG/ML VIAL ONE ×2 (01:15→04:45)
[2017-08-30 01:21] LABS: EOS % 0.1 % (0.0-4.0); MEAN CELL VOLUME 98.6 fL (80.0-94.0)
[2017-08-30 01:26] LABS: BASO % 0.4 % (0.0-2.0); LYMPH # 0.8 K/uL (1.0-4.3); LYMPH % 27.5 % (20.0-40.0); MEAN CORPUSCULAR HGB CONC 31.4 g/dL (33.0-37.0); MEAN PLATELET VOLUME 10.9 fL (7.2-11.7); MONO # 0.5 K/uL (0.0-0.8); MONO % 15.5 % (0.0-10.0); NEUT # 1.7 K/uL (1.8-7.0); NEUT % 56.5 % (50.0-75.0); NRBC % 0.5 % (0.0-2.0); RBC 3.56 Mil/uL (4.40-5.90); RED CELL DISTRIBUTION WIDTH 21.9 % (11.5-14.5)
[2017-08-30 01:46] LABS: ALT/SGPT 19 U/L (21-72); AST/SGOT 28 U/L (17-59); BLOOD UREA NITROGEN 14 mg/dL (9-20); CALCIUM 8.6 mg/dl (8.6-10.4); GFR AFRICAN-AMERICAN > 60; GFR NON-AFRICAN AMERICAN > 60; LIPASE 75 U/L (23-300)
[2017-08-30] MEDS ORDERED: Iohexol 350mg/ml 100 ML ONE (02:08)
[2017-08-30 02:11] LABS: URINE AMORPHOUS SEDIMENT RARE /ul (<OCC); URINE BILIRUBIN NEGATIVE (NEGATIVE); URINE BLOOD NEGATIVE (NEGATIVE); URINE CLARITY Hazy (Clear); URINE COLOR Yellow (YELLOW); URINE GLUCOSE (UA) NORMAL (Normal); URINE LEUKOCYTE ESTERASE NEG Leu/uL (Negative); URINE PROTEIN NEGATIVE (NEGATIVE)
--- NOTE | 2017-08-30 03:25 | CT ---
EXAM: CT Abdomen and Pelvis With Intravenous Contrast CLINICAL HISTORY: 72 years old, male; Pain; Abdominal pain; Prior surgery; Additional info: Rlq pain, inguinal hernia TECHNIQUE: Axial computed tomography images of the abdomen and pelvis with intravenous contrast. All CT scans at this facility use one or more dose reduction techniques, viz.: automated exposure control; ma/kV adjustment per patient size (including targeted exams where dose is matched to indication; i.e. head); or iterative reconstruction technique. 697 images are submitted. Coronal and sagittal reformatted images were created and reviewed. CONTRAST: 100 mL of [id number] administered intravenously. COMPARISON: No relevant prior studies available. FINDINGS: Lung bases: Bibasilar right middle lobe and lingular nonspecific infiltrates and consolidation are present, consistent with atelectasis or pneumonia. Heart: Cardiomegaly. ABDOMEN: Liver: Fatty liver. Gallbladder and bile ducts: Unremarkable. No ductal dilation. Pancreas: There is hyperdense pancreatic tail mass measuring 2.3 cm seen on image 59 series 3 versus a splenule. If clinically indicated further characterization with an nonemergent MRI may be helpful. No ductal dilation. Spleen: See above. Adrenals: Unremarkable. No mass. Kidneys and ureters: There are renal hypodensities too small to characterize. Perinephric fluid and inflammatory change. Bilateral subcentimeter renal cysts. No hydronephrosis. Stomach and bowel: Duodenal diverticulum. Nonspecific gastric thickening likely due to under distention. Correlation with clinical data is recommended if gastritis is suspected. There are nonspecific fluid filled small bowel loops. These findings can represent ileus versus enteritis versus slow transit versus peristalsis. Moderate amount of stool in the colon. Appendix: Normal appendix. PELVIS: Bladder: Partially decompressed bladder with bladder wall thickening. Correlation with urinalysis is recommended only if clinical cystitis is suspected. Reproductive: Enlarged prostate gland. ABDOMEN and PELVIS: Intraperitoneal space: Unremarkable. No free air. No significant fluid collection. Bones/joints: Thoracic spinal hardware. Intramedullary simon and screw fixation of the left femur. There are multilevel compression fracture deformities involving T7, T10, L1 and L3. Multilevel vacuum degenerative disc disease. No dislocation. Soft tissues: Bilateral gynecomastia. Bilateral inguinal scrotal herniation of fat. Right inguinal scrotal herniation of fluid. Vasculature: The aorta demonstrates calcified plaque and is mildly ectatic but normal in caliber. No abdominal aortic aneurysm. Lymph nodes: Unremarkable. No enlarged lymph nodes. IMPRESSION: 1. Bibasilar right middle lobe and lingular nonspecific infiltrates and consolidation are present, consistent with atelectasis or pneumonia. 2. There is hyperdense left pancreatic tail mass measuring 2.3 cm seen on image 59 series 3 versus a splenule. If clinically indicated further characterization with an nonemergent MRI may be helpful. Correlation with internal medicine evaluation and further workup or followup as recommended by patient's clinical data.
[2017-08-30] MEDS ORDERED: Moxifloxacin IV 400mg/250ml NS 400 MG/250 ML BAG IVPB ONE (04:28)
[2017-08-30] MEDS: Morphine 4 MG/ML VIAL IV SCH ×2 (04:45→08:25)
[2017-08-30] MEDS ORDERED: Albuterol-Ipratrop 3 mg / 0.5 (3 ml) UD ONE (04:47)
[2017-08-30] MEDS ORDERED: Ciprofloxacin 400mg/200ml D5W 400 MG/200 ML BAG IVPB STA (05:05)
[2017-08-30] MEDS: Albuterol-Ipratrop 3 mg / 0.5 (3 ml) UD IH SCH ×3 (05:10→13:01)
[2017-08-30 08:00] VITALS: RESP 20
[2017-08-30] MEDS ORDERED: Ergocalciferol 50,000 Intl Units Cap PO SCH (10:00)
[2017-08-30] MEDS ORDERED: Azithromycin 500 MG in Sodium Chloride 0.9% 250 ML IVPB SCH (10:00)
[2017-08-30] MEDS ORDERED: Sodium Chloride 0.9% 1,000 ML IV SCH (10:45)
--- NOTE | 2017-08-30 11:08 | CARD ---
APPROVED REPORT EKG Measurement Heart [id number] <Conclusion> Normal sinus rhythm Right bundle branch block Inferior infarct, age undetermined Abnormal ECG
--- NOTE | 2017-08-30 11:17 | RAD ---
PROCEDURE: CHEST RADIOGRAPH, 1 VIEW HISTORY: r/o effusion COMPARISON: 06/18/2017 FINDINGS: LUNGS: Patchy opacity at left base, possible subsegmental atelectasis. Note that this is unchanged compared to prior examination. PLEURA: Mild elevation of right hemidiaphragm, unchanged from prior and nonspecific. No definite pleural effusion appreciated. CARDIOVASCULAR: Grossly normal heart size. Evaluation limited due to oblique positioning. OSSEOUS STRUCTURES: Thoracic spinal fixation noted with pedicle screws and vertical rods. VISUALIZED UPPER ABDOMEN: Normal. OTHER FINDINGS: None. IMPRESSION: Stable patchy opacity at left base. Elevated right hemidiaphragm. Limited examination.
[2017-08-30] MEDS ORDERED: Sodium Chloride 0.9% 250 ML IV ONE (12:09)
[2017-08-30] MEDS ORDERED: Moxifloxacin IV 400mg/250ml NS 400 MG/250 ML BAG IVPB SCH ×2 (12:15→12:30)
--- NOTE | 2017-08-30 12:24 | CP.PCM.CON ---
History of Present Illness - History of Present Illness History of Present Illness: HPI: 72 M with PMHx of COPD, RA, CAD, HTN, DM2 presented to the ED with lower abdominal pain. 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 Patient denies fever, chills, nausea, vomiting, cough. Crackles present but typical for the patient. PMHx: COPD, RA, CAD, HTN, DM2 Allergies: penicillins SH: ex-smoker, no alcohol or illicit substance use Assessment and Plan: 1. Pneumonia - neutropenic, WBC 3.0 - RML and lingular Pneumonia vs. atelectasis seen on Abd/Pelvis CT 08/30 - Procalcitonin - On IV antibiotics 2. COPD - BiPAP - duonebs - singulair Past Patient History - Past Medical History & Family History Past Medical History?: Yes - Past Social History Smoking Status: Former Smoker - CARDIAC Hx Cardiac Disorders: Yes Hx Hypertension: Yes - PULMONARY Hx Respiratory Disorders: Yes Hx Asthma: Yes Hx Chronic Obstructive Pulmonary Disease (COPD): Yes Hx Sleep Apnea: Yes - NEUROLOGICAL Hx Neurological Disorder: Yes Hx Alzheimer's Disease: Yes - HEENT Hx HEENT Problems: No - RENAL Hx Chronic Kidney Disease: No - ENDOCRINE/METABOLIC Hx Endocrine Disorders: No - HEMATOLOGICAL/ONCOLOGICAL Hx Human Immunodeficiency Virus (HIV): No - INTEGUMENTARY Hx Dermatological Problems: No - MUSCULOSKELETAL/RHEUMATOLOGICAL Hx Falls: No - GASTROINTESTINAL Hx Gastrointestinal Disorders: No - GENITOURINARY/GYNECOLOGICAL Hx Sexually Transmitted Disorders: No - PSYCHIATRIC Hx Substance Use: No - SURGICAL HISTORY Hx Surgeries: Yes Hx Coronary Artery Bypass Graft: Yes - ANESTHESIA Hx Anesthesia: Yes Hx Anesthesia Reactions: No Hx Malignant Hyperthermia: No Has any member of the family had a problem w/ anesthesia?: No Meds Allergies/Adverse Reactions: Allergies Allergy/AdvReac Type Severity Reaction Status Date / Time Penicillins Allergy Unknown RASH Verified 06/18/17 14:45 - Medications Medications: Current Medications Albuterol/Ipratropium (Duoneb 3 Mg/0.5 Mg (3 Ml) Ud) 3 ml IH Q4H [facility] Stop: 08/30/17 16:46 Last Admin: 08/30/17 08:00 Dose: 3 ml Bisoprolol Fumarate (Zebeta) 5 mg PO DAILY [facility] Last Admin: 08/30/17 10:48 Dose: Not Given Calcium Carbonate (Oscal) 500 mg PO DAILY [facility] Last Admin: 08/30/17 11:01 Dose: 500 mg Clopidogrel Bisulfate (Plavix) 75 mg PO DAILY [facility] Last Admin: 08/30/17 10:30 Dose: 75 mg Docusate Sodium (Colace) 100 mg PO DAILY [facility] Last Admin: 08/30/17 10:30 Dose: 100 mg Ergocalciferol (Drisdol 50,000 Intl Units Cap) 1 cap PO QWK [facility] Last Admin: 08/30/17 10:30 Dose: 1 cap Furosemide (Lasix) 20 mg PO DAILY [facility] Last Admin: 08/30/17 10:47 Dose: Not Given Heparin Sodium (Porcine) (Heparin) 5,000 units SC Q12 [facility] Last Admin: 08/30/17 10:30 Dose: 5,000 units Hydroxychloroquine Sulfate (Plaquenil) 200 mg PO BID [facility] PRN Reason: Protocol Last Admin: 08/30/17 10:59 Dose: 200 mg Moxifloxacin HCl (Avelox Iv 400mg/250ml Ns) 400 mg in 250 mls @ 167 mls/hr IVPB Q24H [facility] PRN Reason: Protocol Sodium Chloride (Sodium Chloride 0.9%) 250 mls @ 250 mls/hr IV .Q1H ONE Stop: 08/30/17 13:08 Montelukast Sodium (Singulair) 10 mg PO HS [facility] Morphine Sulfate (Morphine) 1 mg IVP Q4 PRN PRN Reason: Pain, moderate (4-7) Prednisone (Prednisone Tab) 5 mg PO BID [facility] Last Admin: 08/30/17 11:00 Dose: 5 mg Rosuvastatin Calcium (Crestor) 10 mg PO HS [facility] Saccharomyces Boulardii (Florastor) 250 mg PO BID [facility] Tamsulosin HCl (Flomax) 0.4 mg PO DAILY [facility] Last Admin: 08/30/17 10:30 Dose: 0.4 mg Results - Vital Signs Recent Vital Signs: Last Vital Signs Temp 97.6 F 08/30/17 07:59 Pulse 85 08/30/17 07:59 Resp 20 08/30/17 07:59 BP 85/62 L 08/30/17 10:47 Pulse Ox 99 08/30/17 07:59 - Labs Result Diagrams: 08/30/17 00:58 08/30/17 01:29 Labs: Laboratory Results - last 24 hr 08/30/17 08/30/17 08/30/17 00:58 00:58 01:29 WBC 3.0 L D RBC 3.56 L Hgb 11.0 L Hct 35.1 MCV 98.6 H D MCH 31.0 MCHC 31.4 L RDW 21.9 H Plt Count 97 L D MPV 10.9 Neut % (Auto) 56.5 Lymph % (Auto) 27.5 [place] % (Auto) 15.5 H Eos % (Auto) 0.1 Baso % (Auto) 0.4 Neut # (Auto) 1.7 L Lymph # (Auto) 0.8 L [place] # (Auto) 0.5 Eos # (Auto) 0.0 Baso # (Auto) 0.0 PT 10.0 INR 0.9 APTT 35 H Sodium 141 Potassium 4.3 Chloride 101 Carbon Dioxide 31 H Anion Gap 14 BUN 14 Creatinine 0.9 Est GFR ( Amer) > 60 Est GFR (Non-Af Amer) > 60 Random Glucose 112 H Calcium 8.6 Total Bilirubin 0.6 AST 28 ALT 19 L D Alkaline Phosphatase 36 L Total Protein 6.1 L Albumin 3.0 L Globulin 3.1 Albumin/Globulin Ratio 1.0 Lipase 75 Urine Color Urine Clarity Urine pH Ur Specific [place] Urine Protein Urine Glucose (UA) Urine Ketones Urine Blood Urine Nitrate Urine Bilirubin Urine Urobilinogen Ur Leukocyte Esterase Urine WBC (Auto) Urine RBC (Auto) Amorphous Sediment 08/30/17 02:02 WBC RBC Hgb Hct MCV MCH MCHC RDW Plt Count MPV Neut % (Auto) Lymph % (Auto) [place] % (Auto) Eos % (Auto) Baso % (Auto) Neut # (Auto) Lymph # (Auto) [place] # (Auto) Eos # (Auto) Baso # (Auto) PT INR APTT Sodium Potassium Chloride Carbon Dioxide Anion Gap BUN Creatinine Est GFR ( Amer) Est GFR (Non-Af Amer) Random Glucose Calcium Total Bilirubin AST ALT Alkaline Phosphatase Total Protein Albumin Globulin Albumin/Globulin Ratio Lipase Urine Color Yellow Urine Clarity Hazy Urine pH 7.0 Ur Specific [place] 1.014 Urine Protein Negative Urine Glucose (UA) Normal Urine Ketones Negative Urine Blood Negative Urine Nitrate Negative Urine Bilirubin Negative Urine Urobilinogen 2.0 Ur Leukocyte Esterase Neg Urine WBC (Auto) < 1 Urine RBC (Auto) 1 Amorphous Sediment Rare H
--- NOTE | 2017-08-30 14:33 | HP ---
HISTORY OF PRESENT ILLNESS: This is a 72-year-old [place] male with history of multiple medical problems, presented to emergency room with lower abdominal pain. The patient tried home remedy without improvement. The patient presented to emergency room for evaluation where he had CT of the abdomen and pelvis. CT showed bibasilar right middle lobe and lingular nonspecific infiltrate and consolidation consistent with atelectasis versus pneumonia. There is hyperdense left pancreatic tail mass measuring 2.3 cm seen on the CAT scan. The patient denied having any diarrhea or constipation. The patient denied having any urinary retention or urinary symptoms. Other review of systems are negative. ALLERGIES: THERE IS ALLERGY TO PENICILLIN. PAST MEDICAL HISTORY: Advanced rheumatoid arthritis with deformity, hypertension, coronary artery disease, status post coronary artery bypass graft, type 2 diabetes mellitus, diet-controlled. SOCIAL HISTORY: Ex-smoker. No EtOH or substance abuse. FAMILY HISTORY Noncontributory. MEDICATIONS: As per MAR. PHYSICAL EXAMINATION: GENERAL: The patient is in bed comfortable at the time of this examination with no cardiopulmonary distress. VITAL SIGNS: Blood pressure 90/60, temperature 97.6, respiratory rate 20, and pulse 85. HEENT: Pupils equal, and reactive to light. Normal appearing mucosa of the conjunctivae, oropharynx, and nasal membrane mucosa. NECK: Supple. No JVD. No carotid bruit. No lymph node. No thyromegaly. CHEST/LUNGS: Bilateral symmetrical expansion. Good air exchange, there are bilateral rales. CARDIOVASCULAR SYSTEM: PMI not localized. S1, S2. No additional sounds. ABDOMEN: Normoactive bowel sounds. No tenderness. No organomegaly. No masses. EXTREMITIES: No cyanosis, no clubbing, no edema. MANAGER ENVIRONMENTAL AFFAIRS: Alert, awake, oriented x2. Moves all extremities equally. ASSESSMENT: 1. Lower abdominal pain, undetermined etiology. 2. CAT scan findings of possible pancreatic mass. 3. Possible pneumonia. 4. History of severe chronic obstructive pulmonary disease. PLAN: We will give the patient antibiotics of fluoroquinolone and Pulmonary consult and GI consult and follow their recommendations. Resume the patient's home medicines. Mercedez Larson MD
[2017-08-30] MEDS: Saccharomyces Boulardi 250 mg Cap PO SCH (17:15)
[2017-08-31] MEDS: Saccharomyces Boulardi 250 mg Cap PO SCH ×2 (10:51→18:05)
[2017-08-31] MEDS: Aztreonam 1 GM in Sodium Chloride 0.9% 100 ML IVPB SCH (21:08)
--- NOTE | 2017-08-31 21:25 | CP.PCM.PN ---
Subjective - Date & Time of Evaluation Date of Evaluation: 08/31/17 Time of Evaluation: 19:20 - Subjective Subjective: patient seen and examined Lying comfortably in no acute distress Alert oriented 3 Denies fever chills, denies chest pain, denies cough Pro calcitonin level in normal range On antibiotics Pneumonia unlikely Continue nebulizer treatment and steroids Objective - Vital Signs/Intake and Output Vital Signs (last 24 hours): Temp Pulse Resp BP Pulse Ox 98.2 F 72 20 90/59 L 92 L 08/31/17 17:17 08/31/17 17:17 08/31/17 17:17 08/31/17 17:17 08/31/17 17:17 - Medications Medications: Current Medications Bisoprolol Fumarate (Zebeta) 5 mg PO DAILY [facility] Last Admin: 08/31/17 13:30 Dose: Not Given Calcium Carbonate (Oscal) 500 mg PO DAILY [facility] Last Admin: 08/31/17 11:05 Dose: 500 mg Clopidogrel Bisulfate (Plavix) 75 mg PO DAILY [facility] Last Admin: 08/31/17 10:52 Dose: 75 mg Docusate Sodium (Colace) 100 mg PO DAILY [facility] Last Admin: 08/31/17 10:51 Dose: 100 mg Ergocalciferol (Drisdol 50,000 Intl Units Cap) 1 cap PO QWK [facility] Last Admin: 08/30/17 10:30 Dose: 1 cap Furosemide (Lasix) 20 mg PO DAILY [facility] Last Admin: 08/31/17 13:30 Dose: Not Given Furosemide (Lasix) 20 mg IVP DAILY [facility] Heparin Sodium (Porcine) (Heparin) 5,000 units SC Q12 [facility] Last Admin: 08/31/17 21:10 Dose: 5,000 units Hydroxychloroquine Sulfate (Plaquenil) 200 mg PO BID [facility] PRN Reason: Protocol Last Admin: 08/31/17 18:05 Dose: 200 mg Aztreonam 1 gm/ Sodium (Chloride) 100 mls @ 200 mls/hr IVPB Q8H [facility] PRN Reason: Protocol Last Admin: 08/31/17 21:08 Dose: 200 mls/hr Lactulose (Enulose) 20 gm PO Q4 [facility] Last Admin: 08/31/17 20:01 Dose: 20 gm Montelukast Sodium (Singulair) 10 mg PO HS [facility] Last Admin: 08/31/17 21:09 Dose: 10 mg Morphine Sulfate (Morphine) 1 mg IVP Q4 PRN PRN Reason: Pain, moderate (4-7) Moxifloxacin HCl (Avelox) 400 mg PO DAILY [facility] Last Admin: 08/31/17 10:51 Dose: 400 mg Prednisone (Prednisone Tab) 5 mg PO BID [facility] Last Admin: 08/31/17 18:06 Dose: 5 mg Rosuvastatin Calcium (Crestor) 10 mg PO HS [facility] Last Admin: 08/31/17 21:09 Dose: 10 mg Saccharomyces Boulardii (Florastor) 250 mg PO BID [facility] Last Admin: 08/31/17 18:05 Dose: 250 mg Tamsulosin HCl (Flomax) 0.4 mg PO DAILY [facility] Last Admin: 08/31/17 10:52 Dose: 0.4 mg - Labs Labs: 08/30/17 00:58 08/30/17 01:29 PT 10.0 SECONDS (9.7-12.2) 08/30/17 00:58 INR 0.9 08/30/17 00:58 APTT 35 SECONDS (21-34) H 08/30/17 00:58
--- NOTE | 2017-08-31 22:38 | PN ---
DATE: 08/31/2017 SUBJECTIVE: The patient is seen today, 08/31/2017. The patient is in mild cardiopulmonary distress. PHYSICAL EXAMINATION: VITAL SIGNS: Blood pressure 90/59, temperature 98.2, respiratory rate 24, and pulse 72. HEENT: Pupils equal and reactive to light. Normal appearing mucosa of the conjunctiva, oropharynx, and nasal membrane mucosa. NECK: Supple. No JVD. No carotid bruit. No lymph node. CHEST AND LUNGS: Bilateral symmetrical expansion. Good air exchange. There are bilateral rales. Cardio CARDIOVASCULAR SYSTEM: PMI not localized. S1, S2. No additional sounds. ABDOMEN: Positive bowel sounds. No tenderness. No organomegaly. No masses. EXTREMITIES: No cyanosis, no clubbing, no edema. CENTRAL NERVOUS SYSTEM: Alert, awake, and oriented x2. No neurological deficit could be appreciated. ASSESSMENT: 1. Pneumonia. 2. Exacerbation of chronic obstructive pulmonary disease. 3. Pancreatic mass. 4. Advanced rheumatoid arthritis. 5. Coronary artery disease. PLAN: We will give Lasix 20 mg IV push. Continue nebulizer treatment as needed. We will check influenza A and B, and we will start Azactam 1 gm IV every 8 hours. Continue Avelox and GI consults and follow the recommendations. Mercedez Larson MD
[2017-09-01] MEDS: Aztreonam 1 GM in Sodium Chloride 0.9% 100 ML IVPB SCH ×3 (05:30→21:31)
[2017-09-01 08:36] LABS: HEMOGLOBIN 10.9 g/dL (12.0-18.0); MEAN CELL VOLUME 98.9 fL (80.0-94.0); MEAN CORPUSCULAR HEMOGLOBIN 31.2 pg (27.0-31.0); MEAN CORPUSCULAR HGB CONC 31.5 g/dL (33.0-37.0); MEAN PLATELET VOLUME 10.9 fL (7.2-11.7); RBC 3.48 Mil/uL (4.40-5.90); RED CELL DISTRIBUTION WIDTH 21.4 % (11.5-14.5); WHITE BLOOD COUNT 2.7 K/uL (4.8-10.8)
[2017-09-01 09:13] LABS: ALBUMIN 3.3 g/dL (3.5-5.0); ALT/SGPT 21 U/L (21-72); AST/SGOT 40 U/L (17-59); BLOOD UREA NITROGEN 15 mg/dL (9-20); CALCIUM 8.9 mg/dl (8.6-10.4); GFR AFRICAN-AMERICAN > 60; GFR NON-AFRICAN AMERICAN > 60
[2017-09-01] MEDS: Saccharomyces Boulardi 250 mg Cap PO SCH ×2 (09:19→17:29)
[2017-09-01 10:05] LABS: BASO % 0.4 % (0.0-2.0); LYMPH % 66.5 % (20.0-40.0); MONO % 8.5 % (0.0-10.0); NEUT % 24.6 % (50.0-75.0); NRBC % 0.1 % (0.0-2.0)
[2017-09-01 10:06] LABS: LYMPH # 1.8 K/uL (1.0-4.3); MONO # 0.2 K/uL (0.0-0.8); NEUT # 0.7 K/uL (1.8-7.0)
--- NOTE | 2017-09-01 13:29 | CP.PCM.CON ---
<Miya Osei - Last Filed: 09/01/17 13:30> History of Present Illness - History of Present Illness History of Present Illness: PGY4 Initial GI Consult Note Brian Farrar is a 72 M with PMHx of COPD, RA, CAD, HTN, DM2 presented to the ED with lower abdominal pain. He notes that the pain has been present for days and it has progressively worsened, though he denied any pain at this time. Pt does note SOB and is currently being treated for probable COPD exacerbation. 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 Patient denies fever, chills, nausea, vomiting, cough. Crackles present but typical for the patient. He denies any endoscopy procedure. Denies any abd pain and weightloss. CT of the Abd/Pelv revealed a heterogenous lesion in the tail of the pancreas. GI was consulted for evaluation of the mass. PMHx: COPD, RA, CAD, HTN, DM2 Allergies: penicillins SH: ex-smoker, no alcohol or illicit substance use ROS: 12 point ROS conducted, neg other than above Past Patient History - Past Medical History & Family History Past Medical History?: Yes - Past Social History Smoking Status: Former Smoker - CARDIAC Hx Cardiac Disorders: Yes Hx Hypertension: Yes - PULMONARY Hx Respiratory Disorders: Yes Hx Asthma: Yes Hx Chronic Obstructive Pulmonary Disease (COPD): Yes Hx Sleep Apnea: Yes - NEUROLOGICAL Hx Neurological Disorder: Yes Hx Alzheimer's Disease: Yes - HEENT Hx HEENT Problems: No - RENAL Hx Chronic Kidney Disease: No - ENDOCRINE/METABOLIC Hx Endocrine Disorders: No - HEMATOLOGICAL/ONCOLOGICAL Hx Human Immunodeficiency Virus (HIV): No - INTEGUMENTARY Hx Dermatological Problems: No - MUSCULOSKELETAL/RHEUMATOLOGICAL Hx Falls: No - GASTROINTESTINAL Hx Gastrointestinal Disorders: No - GENITOURINARY/GYNECOLOGICAL Hx Sexually Transmitted Disorders: No - PSYCHIATRIC Hx Substance Use: No - SURGICAL HISTORY Hx Surgeries: Yes Hx Coronary Artery Bypass Graft: Yes - ANESTHESIA Hx Anesthesia: Yes Hx Anesthesia Reactions: No Hx Malignant Hyperthermia: No Has any member of the family had a problem w/ anesthesia?: No Meds Allergies/Adverse Reactions: Allergies Allergy/AdvReac Type Severity Reaction Status Date / Time Penicillins Allergy Unknown RASH Verified 06/18/17 14:45 - Medications Medications: Current Medications Bisoprolol Fumarate (Zebeta) 5 mg PO DAILY [facility] Last Admin: 08/31/17 13:30 Dose: Not Given Calcium Carbonate (Oscal) 500 mg PO DAILY [facility] Last Admin: 09/01/17 09:19 Dose: 500 mg Clopidogrel Bisulfate (Plavix) 75 mg PO DAILY [facility] Last Admin: 09/01/17 09:19 Dose: 75 mg Docusate Sodium (Colace) 100 mg PO DAILY [facility] Last Admin: 09/01/17 09:19 Dose: 100 mg Ergocalciferol (Drisdol 50,000 Intl Units Cap) 1 cap PO QWK [facility] Last Admin: 08/30/17 10:30 Dose: 1 cap Furosemide (Lasix) 20 mg PO DAILY [facility] Last Admin: 08/31/17 13:30 Dose: Not Given Furosemide (Lasix) 20 mg IVP DAILY [facility] Heparin Sodium (Porcine) (Heparin) 5,000 units SC Q12 [facility] Last Admin: 09/01/17 09:23 Dose: 5,000 units Hydroxychloroquine Sulfate (Plaquenil) 200 mg PO BID [facility] PRN Reason: Protocol Last Admin: 09/01/17 09:19 Dose: 200 mg Aztreonam 1 gm/ Sodium (Chloride) 100 mls @ 200 mls/hr IVPB Q8H [facility] PRN Reason: Protocol Last Admin: 09/01/17 05:30 Dose: 200 mls/hr Lactulose (Enulose) 20 gm PO Q4 [facility] Last Admin: 09/01/17 09:18 Dose: 20 gm Montelukast Sodium (Singulair) 10 mg PO HS [facility] Last Admin: 08/31/17 21:09 Dose: 10 mg Morphine Sulfate (Morphine) 1 mg IVP Q4 PRN PRN Reason: Pain, moderate (4-7) Moxifloxacin HCl (Avelox) 400 mg PO DAILY [facility] Last Admin: 09/01/17 09:19 Dose: 400 mg Prednisone (Prednisone Tab) 5 mg PO BID [facility] Last Admin: 09/01/17 09:19 Dose: 5 mg Rosuvastatin Calcium (Crestor) 10 mg PO HS [facility] Last Admin: 08/31/17 21:09 Dose: 10 mg Saccharomyces Boulardii (Florastor) 250 mg PO BID [facility] Last Admin: 09/01/17 09:19 Dose: 250 mg Tamsulosin HCl (Flomax) 0.4 mg PO DAILY [facility] Last Admin: 09/01/17 09:19 Dose: 0.4 mg Physical Exam - Constitutional Appears: Well, No Acute Distress - Head Exam Head Exam: ATRAUMATIC, NORMOCEPHALIC - Eye Exam Eye Exam: Normal appearance Pupil Exam: NORMAL ACCOMODATION - ENT Exam ENT Exam: Mucous Membranes Moist, Normal Exam - Neck Exam Neck exam: Positive for: Normal Inspection - Respiratory Exam Respiratory Exam: Prolonged Expiratory Phase, Wheezes. absent: Rales, Rhonchi - Cardiovascular Exam Cardiovascular Exam: REGULAR RHYTHM, +S1, +S2 - GI/Abdominal Exam GI & Abdominal Exam: Normal Bowel Sounds, Soft. absent: Guarding, Organomegaly , Rebound, Rigid, Tenderness - Extremities Exam Extremities exam: Negative for: joint swelling, pedal edema - Neurological Exam Neurological exam: Alert, Oriented x3 - Psychiatric Exam Psychiatric exam: Normal Affect, Normal Mood - Skin Skin Exam: Dry, Intact, Normal Color, Warm Results - Vital Signs Recent Vital Signs: Last Vital Signs Temp 98.3 F 09/01/17 08:00 Pulse 78 09/01/17 08:00 Resp 20 09/01/17 08:00 BP 100/63 09/01/17 08:00 Pulse Ox 98 09/01/17 08:00 - Labs Result Diagrams: 09/01/17 08:24 09/01/17 08:24 Labs: Laboratory Results - last 24 hr 08/31/17 09/01/17 09/01/17 19:29 08:24 08:24 WBC 2.7 L RBC 3.48 L Hgb 10.9 L Hct 34.5 L MCV 98.9 H MCH 31.2 H MCHC 31.5 L RDW 21.4 H Plt Count 86 L MPV 10.9 Neut % (Auto) 24.6 L Lymph % (Auto) 66.5 H [place] % (Auto) 8.5 Eos % (Auto) 0.0 Baso % (Auto) 0.4 Neut # (Auto) 0.7 L Lymph # (Auto) 1.8 [place] # (Auto) 0.2 Eos # (Auto) 0.0 Baso # (Auto) 0.0 Sodium 142 Potassium 3.9 Chloride 97 L Carbon Dioxide 31 H Anion Gap 18 BUN 15 Creatinine 0.9 Est GFR ( Amer) > 60 Est GFR (Non-Af Amer) > 60 Random Glucose 73 L Calcium 8.9 Total Bilirubin 0.6 AST 40 ALT 21 Alkaline Phosphatase 34 L Total Protein 6.6 Albumin 3.3 L Globulin 3.3 Albumin/Globulin Ratio 1.0 Influenza Typ A,B (EIA) Negative for flu a/b Assessment & Plan - Assessment and Plan (Free Text) Assessment: Brian Farrar is a 72 M with PMHx of COPD, RA, CAD, HTN, DM2 presented to the ED with lower abdominal pain. CT Abd revealed pancreas mass in the Pancreas Tail Pancreatic Tail Mass COPD exacerbation hx of COPD CAD Plan: -recommend EUS/FNA as an outpt -no GI intervention at this time -rest of care as per primary team -pt advised to follow-up with Dr rai, once acute episode of COPD is corrected -diet as tolerated -will sign off D/W Dr. Rai <Jeancarlos Rai - Last Filed: 09/01/17 16:21> Meds - Medications Medications: Current Medications Bisoprolol Fumarate (Zebeta) 5 mg PO DAILY [facility] Last Admin: 09/01/17 16:16 Dose: Not Given Calcium Carbonate (Oscal) 500 mg PO DAILY [facility] Last Admin: 09/01/17 09:19 Dose: 500 mg Clopidogrel Bisulfate (Plavix) 75 mg PO DAILY [facility] Last Admin: 09/01/17 09:19 Dose: 75 mg Docusate Sodium (Colace) 100 mg PO DAILY [facility] Last Admin: 09/01/17 09:19 Dose: 100 mg Ergocalciferol (Drisdol 50,000 Intl Units Cap) 1 cap PO QWK [facility] Last Admin: 08/30/17 10:30 Dose: 1 cap Furosemide (Lasix) 20 mg PO DAILY [facility] Last Admin: 08/31/17 13:30 Dose: Not Given Furosemide (Lasix) 20 mg IVP DAILY [facility] Last Admin: 09/01/17 16:16 Dose: Not Given Heparin Sodium (Porcine) (Heparin) 5,000 units SC Q12 [facility] Last Admin: 09/01/17 09:23 Dose: 5,000 units Hydroxychloroquine Sulfate (Plaquenil) 200 mg PO BID [facility] PRN Reason: Protocol Last Admin: 09/01/17 09:19 Dose: 200 mg Aztreonam 1 gm/ Sodium (Chloride) 100 mls @ 200 mls/hr IVPB Q8H [facility] PRN Reason: Protocol Last Admin: 09/01/17 15:02 Dose: 200 mls/hr Montelukast Sodium (Singulair) 10 mg PO HS [facility] Last Admin: 08/31/17 21:09 Dose: 10 mg Morphine Sulfate (Morphine) 1 mg IVP Q4 PRN PRN Reason: Pain, moderate (4-7) Moxifloxacin HCl (Avelox) 400 mg PO DAILY [facility] Last Admin: 09/01/17 09:19 Dose: 400 mg Prednisone (Prednisone Tab) 5 mg PO BID [facility] Last Admin: 09/01/17 09:19 Dose: 5 mg Rosuvastatin Calcium (Crestor) 10 mg PO HS [facility] Last Admin: 08/31/17 21:09 Dose: 10 mg Saccharomyces Boulardii (Florastor) 250 mg PO BID [facility] Last Admin: 09/01/17 09:19 Dose: 250 mg Tamsulosin HCl (Flomax) 0.4 mg PO DAILY [facility] Last Admin: 09/01/17 09:19 Dose: 0.4 mg Results - Vital Signs Recent Vital Signs: Last Vital Signs Temp 98.3 F 09/01/17 08:00 Pulse 78 09/01/17 08:00 Resp 20 09/01/17 08:00 BP 100/63 09/01/17 08:00 Pulse Ox 98 09/01/17 08:00 - Labs Result Diagrams: 09/01/17 08:24 09/01/17 08:24 Labs: Laboratory Results - last 24 hr 08/31/17 09/01/17 09/01/17 19:29 08:24 08:24 WBC 2.7 L RBC 3.48 L Hgb 10.9 L Hct 34.5 L MCV 98.9 H MCH 31.2 H MCHC 31.5 L RDW 21.4 H Plt Count 86 L MPV 10.9 Neut % (Auto) 24.6 L Lymph % (Auto) 66.5 H [place] % (Auto) 8.5 Eos % (Auto) 0.0 Baso % (Auto) 0.4 Neut # (Auto) 0.7 L Lymph # (Auto) 1.8 [place] # (Auto) 0.2 Eos # (Auto) 0.0 Baso # (Auto) 0.0 Sodium 142 Potassium 3.9 Chloride 97 L Carbon Dioxide 31 H Anion Gap 18 BUN 15 Creatinine 0.9 Est GFR ( Amer) > 60 Est GFR (Non-Af Amer) > 60 Random Glucose 73 L Calcium 8.9 Total Bilirubin 0.6 AST 40 ALT 21 Alkaline Phosphatase 34 L Total Protein 6.6 Albumin 3.3 L Globulin 3.3 Albumin/Globulin Ratio 1.0 Influenza Typ A,B (EIA) Negative for flu a/b Attending/Attestation - Attestation I have personally seen and examined this patient.: Yes I have fully participated in the care of the patient.: Yes I have reviewed all pertinent clinical information: Yes Notes (Text): 09/01/17 16:20 72 year old male with h/o CAD, COPD, admitted with copd exacerbation, also with non-specific abdominal pain found to have pancreatic tail lesion. Recommend outpatient EUS with FNB of pancreatic tail lesion. Patient's respiratory status would have to be improved and he would need to be off plavix for 1 week preop. Will sign off.
[2017-09-01 16:23] VITALS: PULSE 81
[2017-09-01 23:17] VITALS: TEMP 98.4; O2SAT 96
[2017-09-02] MEDS: Aztreonam 1 GM in Sodium Chloride 0.9% 100 ML IVPB SCH (05:15)
[2017-09-02] MEDS: Saccharomyces Boulardi 250 mg Cap PO SCH (10:55)
[2017-09-02 10:57] VITALS: BP 100/68
[2017-09-02 11:16] LABS: ALBUMIN 3.1 g/dL (3.5-5.0); ALT/SGPT 20 U/L (21-72); AST/SGOT 48 U/L (17-59); BLOOD UREA NITROGEN 16 mg/dL (9-20); CALCIUM 8.5 mg/dl (8.6-10.4); GFR AFRICAN-AMERICAN > 60; GFR NON-AFRICAN AMERICAN > 60
[2017-09-02 11:20] LABS: HEMOGLOBIN 10.7 g/dL (12.0-18.0); MEAN CELL VOLUME 97.9 fL (80.0-94.0); MEAN CORPUSCULAR HEMOGLOBIN 31.6 pg (27.0-31.0); MEAN CORPUSCULAR HGB CONC 32.2 g/dL (33.0-37.0); RBC 3.38 Mil/uL (4.40-5.90); RED CELL DISTRIBUTION WIDTH 21.2 % (11.5-14.5); WHITE BLOOD COUNT 3.1 K/uL (4.8-10.8)
[2017-09-02 11:21] LABS: MEAN PLATELET VOLUME 10.7 fL (7.2-11.7)
[2017-09-02 11:35] LABS: LYMPH # 1.5 K/uL (1.0-4.3); MONO # 0.4 K/uL (0.0-0.8); NEUT # 1.2 K/uL (1.8-7.0)
--- NOTE | 2017-09-02 12:23 | CP.PCM.PN ---
Subjective - Date & Time of Evaluation Date of Evaluation: 09/02/17 Time of Evaluation: 12:23 - Subjective Subjective: PATIENT WAS ADMITTED FOR ABDOMINAL PAIN / PANCREATIC MASS AND PNA AAOX3; ON 2 L NASAL CANNULA DENIES CHEST PAIN/ SOB / NAUSEA OR VOMITING NO SIGN OF DISTRESS NOTED Objective - Vital Signs/Intake and Output Vital Signs (last 24 hours): Temp Pulse Resp BP Pulse Ox 98.4 F 81 20 100/68 96 09/01/17 23:16 09/01/17 23:16 09/01/17 23:16 09/02/17 10:56 09/01/17 23:16 Intake and Output: 09/02/17 09/02/17 06:59 18:59 Intake Total 300 Balance 300 - Medications Medications: Current Medications Bisoprolol Fumarate (Zebeta) 5 mg PO DAILY [facility] Last Admin: 09/02/17 10:56 Dose: Not Given Calcium Carbonate (Oscal) 500 mg PO DAILY [facility] Last Admin: 09/02/17 11:00 Dose: 500 mg Clopidogrel Bisulfate (Plavix) 75 mg PO DAILY [facility] Last Admin: 09/02/17 11:00 Dose: 75 mg Docusate Sodium (Colace) 100 mg PO DAILY [facility] Last Admin: 09/02/17 10:55 Dose: 100 mg Ergocalciferol (Drisdol 50,000 Intl Units Cap) 1 cap PO QWK [facility] Last Admin: 08/30/17 10:30 Dose: 1 cap Furosemide (Lasix) 20 mg PO DAILY [facility] Last Admin: 08/31/17 13:30 Dose: Not Given Furosemide (Lasix) 20 mg IVP DAILY [facility] Last Admin: 09/02/17 10:56 Dose: Not Given Heparin Sodium (Porcine) (Heparin) 5,000 units SC Q12 [facility] Last Admin: 09/01/17 21:48 Dose: 5,000 units Hydroxychloroquine Sulfate (Plaquenil) 200 mg PO BID [facility] PRN Reason: Protocol Last Admin: 09/02/17 11:00 Dose: 200 mg Aztreonam 1 gm/ Sodium (Chloride) 100 mls @ 200 mls/hr IVPB Q8H [facility] PRN Reason: Protocol Last Admin: 09/02/17 05:15 Dose: 200 mls/hr Montelukast Sodium (Singulair) 10 mg PO HS [facility] Last Admin: 09/01/17 21:32 Dose: 10 mg Morphine Sulfate (Morphine) 1 mg IVP Q4 PRN PRN Reason: Pain, moderate (4-7) Moxifloxacin HCl (Avelox) 400 mg PO DAILY [facility] Last Admin: 09/02/17 10:55 Dose: 400 mg Prednisone (Prednisone Tab) 5 mg PO BID [facility] Last Admin: 09/02/17 11:00 Dose: 5 mg Rosuvastatin Calcium (Crestor) 10 mg PO HS [facility] Last Admin: 09/01/17 21:32 Dose: 10 mg Saccharomyces Boulardii (Florastor) 250 mg PO BID [facility] Last Admin: 09/02/17 10:55 Dose: 250 mg Tamsulosin HCl (Flomax) 0.4 mg PO DAILY [facility] Last Admin: 09/02/17 10:55 Dose: 0.4 mg - Labs Labs: 09/02/17 10:45 09/02/17 10:45 PT 10.0 SECONDS (9.7-12.2) 08/30/17 00:58 INR 0.9 08/30/17 00:58 APTT 35 SECONDS (21-34) H 08/30/17 00:58 Assessment and Plan - Assessment and Plan (Free Text) Assessment: PATIENT SEEN AND EXAMINED BY BALANCE WHEEL HAND FILER SATURATED AT 100 % LUNG SOUND CLEAR INDRA ABD SOFT NON DISTENDED AFEBRILE/ PROCALCITONIN IS NORMAL/ WBC IS WNL PER GI PATIENT WILL F/U FOR OUT PATIENT EUS/FNA DISCUSS WITH DR CHUA AND DR NAVARRO WHO CLEAR PATIENT FOR DC FOLLOW UP WITH DR NAVARRO AT HIS OFFICE ---CALL FOR APPOINTMENT FOLLOW UP WITH DR CHUA AT HIS OFFICE 1-2 WEEK ---CALL FOR APPOINTMENT FOLLOW UP WITH DR BUENROSTRO AT HIS OFFICE --CALL FOR APPOINTMENT ADDRESS YOUR MEDICATION PLAVIX WHICH NEED TO BE STOP FOR AT LEAST 7 DAYS BEFORE PROCEDURE CONTINUE ALL YOUR HOME MEDICATION FOR NOW INDICATED NEW PRESCRIPTION GIVEN AVELOX 400 MG BY MOUTH DIALY FOR 5 DA[address] ACTIVITY TOLERATED CALL DR NAVARRO OR GO TO THE EMERGENCY ROOM IF SYMPTOMS RETURN OR WORSENING DISCUSS WITH PATIENT WHO AGREE AND VERBALIZED UNDERSTANDING
--- NOTE | 2017-09-03 10:37 | DS ---
REASON FOR ADMISSION: This is a 72-year-old [place] male with multiple medical problems who was admitted for abdominal pain and exacerbation of chronic obstructive pulmonary disease and pneumonia. COURSE OF HOSPITALIZATION: The patient was admitted to medical floor and he was started on IV antibiotic as well as bronchodilators. The patient had a CAT scan of the abdomen and pelvis that was unremarkable except for possible pancreatic mass. The patient had a GI consult done by Dr. Jacobsen's group as well as pulmonary consult done by Dr. Malone. The patient did well and he was discharged home on Avelox and to follow up with Gastroenterology as well as with Pulmonary. FINAL DIAGNOSES: Pneumonia, exacerbation of chronic obstructive pulmonary disease, hypertension, coronary artery disease status post coronary artery bypass graft. [facility] MD [facility] # [id number]
== END 2017-09-02 13:35 | disposition home or self-care (01) | DRG 190 ==
LOC: C.ER 00:28 → C.3T 04:29
PROVIDERS: ADMIT Internal Medicine; ATTEND Internal Medicine
DX: J44.0 Chronic obstructive pulmonary disease with (acute) lower respiratory infection (principal); J18.9 Pneumonia, unspecified organism; J98.11 Atelectasis; K86.9 Disease of pancreas, unspecified; J44.1 Chronic obstructive pulmonary disease with (acute) exacerbation; D70.9 Neutropenia, unspecified; E11.9 Type 2 diabetes mellitus without complications; E78.5 Hyperlipidemia, unspecified; F02.80 Dementia in other diseases classified elsewhere, unspecified severity, without behavioral disturbance, psychotic disturbance, mood disturbance, and anxiety; G30.9 Alzheimer's disease, unspecified; G47.30 Sleep apnea, unspecified; I10 Essential (primary) hypertension; M06.80 Other specified rheumatoid arthritis, unspecified site; I25.10 Atherosclerotic heart disease of native coronary artery without angina pectoris; Z87.891 Personal history of nicotine dependence; Z95.1 Presence of aortocoronary bypass graft; Z99.81 Dependence on supplemental oxygen; Z88.0 Allergy status to penicillin

== ENCOUNTER 2017-12-27 20:24 | Inpatient (IN) | payer MEDICARE, MEDICAID ==
[2017-12-27 20:24] VITALS: BMI 28.8
--- NOTE | 2017-12-27 20:43 | C.PDOC ---
History Of Present Illness Patient presents to the ER with a complaint of progressive SOB that began today. Patient states he has more difficulty ambulating and reports he is on home O2. He is currently speaking in 5-6 word sentences. Denies fever, chills, chest pain, or palpitations. Time Seen by Provider: 12/27/17 20:42 Chief Complaint (Nursing): Shortness Of Breath History Per: Patient History/Exam Limitations: no limitations Onset/Duration Of Symptoms: Hrs Current Symptoms Are (Timing): Still Present Initiating Event: Other (Not known) Exacerbating Factor(s): Exertion, Other (Walking) Current Respiratory Medications: See Home Med List, Other (Home O2) Severity: Moderate Pain Scale Rating Of: 4 Associated Symptoms: denies: Fever, Chills, Chest Pain, Other (Palpitations) Reports Recently: Seen In ED, Treated By A Physician, Hospitalized Recent travel outside of the [place]: No Additional History Per: Family Past Medical History Reviewed: Historical Data, Nursing Documentation, Vital Signs Vital Signs: Last Vital Signs Temp 98 F 12/27/17 20:30 Pulse 68 12/27/17 20:30 Resp 26 H 12/27/17 20:35 BP 111/64 12/27/17 20:30 Pulse Ox 96 12/27/17 20:56 - Medical History PMH: Alzheimer's Disease, Arthritis (BACK), Asthma, Back Problems, CAD, COPD, Diabetes, Fractures, HTN, Hypercholesterolemia, Hyperlipidemia, Sleep Apnea Denies: CHF, Hepatitis, HIV, Hypothyroidism, Chronic Kidney Disease, Rheumatoid Arthritis, Seizures, Sexually Transmitted Disease Surgical History: Back Surgery (T-spine), CABG (1999), Coronary Stent - [facility] Procedures ASSISTANCE WITH RESPIRATORY VENTILATION, 24-96 HRS (05/24/15) ASSISTANCE WITH RESPIRATORY VENTILATION, <24 HRS, CPAP (07/31/15) ASSISTANCE WITH RESPIRATORY VENTILATION, >96 HRS, CPAP (06/19/17) EXERCISE TRMT MUSCULOSK LOW BACK/LE W ASSIST EQUIP (03/02/16) EXTRACTION OF ILIAC BONE MARROW, PERCUTANEOUS APPROACH (06/27/15) FUSION 2-7 T JT W AUTOL SUB, POST APPR P COL, OPEN (06/27/15) GAIT TRAINING/AMBULAT TREATMENT USING ASSIST EQUIPMENT (03/02/16) HOME MANAGEMENT TREATMENT USING ASSIST EQUIPMENT (03/02/16) INTRODUCTION OF SERUM/TOX/VACCINE INTO MUSCLE, PERC APPROACH (07/31/15) ROM & JT MOBILITY TRMT MUSCULOSK LOW BACK/LE W ASSIST EQUIP (03/02/16) TRANSFUSE NONAUT PLATELETS IN PERIPH VEIN, PERC (06/25/16) TRANSFUSE NONAUT RED BLOOD CELLS IN PERIPH VEIN, PERC (06/25/16) Family History: States: No Known Family Hx - Social History Hx Tobacco Use: Yes Hx Alcohol Use: No Hx Substance Use: No - Immunization History Hx Tetanus Toxoid Vaccination: No Hx Influenza Vaccination: No Hx Pneumococcal Vaccination: Yes Review Of Systems Constitutional: Negative for: Fever, Chills Eyes: Negative for: Vision Change Cardiovascular: Negative for: Chest Pain, Palpitations Respiratory: Positive for: Shortness of Breath Gastrointestinal: Negative for: Nausea, Vomiting Genitourinary: Negative for: Dysuria Musculoskeletal: Positive for: Back Pain Skin: Negative for: Rash Neurological: Negative for: Weakness, Numbness Psych: Negative for: Anxiety Physical Exam - Physical Exam Appears: Non-toxic Skin: Warm, Dry Head: Normacephalic Eye(s): bilateral: Normal Inspection Oral Mucosa: Moist Neck: Supple Chest: Symmetrical, No Tenderness Cardiovascular: Rhythm Regular Respiratory: Rales (at bases), Rhonchi (Diffuse), No Wheezing Gastrointestinal/Abdominal: Soft, No Tenderness Back: Vertebral Tenderness (cervical, chronic) Extremity: No Pedal Edema, Other (Severe arthritic changes to bilateral hands) Extremity: Bilateral: Atraumatic Pulses: Left Dorsalis Pedis: Normal, Right Dorsalis Pedis: Normal Neurological/Psych: Oriented x3 Gait: With Assistance ED Course And Treatment - Laboratory Results Result Diagrams: 12/27/17 20:49 12/27/17 20:49 ECG: Interpreted By Me, Viewed By Me ECG Rhythm: Sinus Rhythm (66), R BBB, Nonspecific Changes (lvh) O2 Sat by Pulse Oximetry: 96 (Room air) Pulse Ox Interpretation: Normal - Radiology CXR: Interpreted by Me, Viewed By Me Progress Note: Blood work, EKG, and CXR ordered. Albuterol nebulizer and zithromax administered. Critical Care Time - Critical Care Note Total Time (in mins): 30 Documented critical care: time excludes all time spent performing seperately billable procedures. Disposition Discussed With : Oni Lerma Comment: accepted the pt on his service and took over the care at 11PM Doctor Will See Patient In The: ED Counseled Patient/Family Regarding: Studies Performed, Diagnosis - Disposition Disposition: HOSPITALIZED Disposition Time: 20:42 Condition: GUARDED Forms: [facility] (Turkmen) - POA Present On Arrival: None - Clinical Impression Clinical Impression: Dyspnea, COPD exacerbation, CHF (congestive heart failure) - Scribe Statement The provider has reviewed the documentation as recorded by the Scribe Perico Horan All medical record entries made by the Scribe were at my direction and personally dictated by me. I have reviewed the chart and agree that the record accurately reflects my personal performance of the history, physical exam, medical decision making, and the department course for this patient. I have also personally directed, reviewed, and agree with the discharge instructions and disposition. Decision To Admit - Pt Status Changed To: Hospital Disposition Of: Inpatient - Admit Certification Admit to Inpatient:: After my assessment, the patient will require hospitalization for at least two midnights. This is because of the severity of symptoms shown, intensity of services needed, and/or the medical risk in this patient being treated as an outpatient. - InPatient: Physician Admission Certification: I certify that this patient requires 2 or more midnights of care for the following reason:: After my assessment, the patient will require hospitalization for at least two midnights. This is because of the severity of symptoms shown, intensity of services needed, and/or the medical risk in this patient being treated as an outpatient. - . Bed Request Type: Telemetry Admitting Physician: Oni Lerma Patient Diagnosis: Dyspnea, COPD exacerbation, CHF (congestive heart failure)
[2017-12-27] MEDS ORDERED: Albuterol-Ipratrop 3 mg / 0.5 (3 ml) UD ONE (20:59)
[2017-12-27] MEDS ORDERED: Azithromycin 500mg/250ML NS 500 MG/250 ML BAG IVPB ONE (21:00)
[2017-12-27] MEDS ORDERED: Albuterol-Ipratrop 3 mg / 0.5 (3 ml) UD IH SCH (21:00)
[2017-12-27 21:15] LABS: BASO % 0.6 % (0.0-2.0); EOS % 0.1 % (0.0-4.0); HEMOGLOBIN 14.2 g/dL (12.0-18.0); LYMPH # 0.8 K/uL (1.0-4.3); MEAN CORPUSCULAR HEMOGLOBIN 33.6 pg (27.0-31.0); MEAN CORPUSCULAR HGB CONC 31.4 g/dL (33.0-37.0); MEAN PLATELET VOLUME 9.5 fL (7.2-11.7); MONO # 0.2 K/uL (0.0-0.8); MONO % 8.7 % (0.0-10.0); NEUT # 1.6 K/uL (1.8-7.0); NEUT % 61.6 % (50.0-75.0); NRBC % 0.2 % (0.0-2.0); RBC 4.24 Mil/uL (4.40-5.90); RED CELL DISTRIBUTION WIDTH 18.4 % (11.5-14.5); WHITE BLOOD COUNT 2.7 K/uL (4.8-10.8)
[2017-12-27 21:16] LABS: B-TYPE NATRIURETIC PEPTIDE 4420 pg/mL (0-900)
[2017-12-27 21:19] LABS: INR 0.9; MEAN CELL VOLUME 106.7 fL (80.0-94.0)
[2017-12-27 21:25] LABS: ABG ALLEN TEST POS; ARTERIAL BLOOD GAS HCO3 31.3 mmol/L (21-28); ARTERIAL BLOOD GAS O2 SAT 99.1 % (95-98); ARTERIAL BLOOD GAS PCO2 60 mm/Hg (35-45); ARTERIAL BLOOD GAS PH 7.38 (7.35-7.45); ARTERIAL BLOOD GAS PO2 94 mm/Hg (80-100); ARTERIAL BLOOD GAS TCO2 37.3 mmol/L (22-28)
[2017-12-27 21:36] LABS: ALB/GLOB RATIO 1.2 (1.0-2.1); ALBUMIN 3.6 g/dL (3.5-5.0); ALT/SGPT 46 U/L (21-72); AST/SGOT 56 U/L (17-59); BLOOD UREA NITROGEN 24 mg/dL (9-20); CALCIUM 9.5 mg/dl (8.6-10.4); GFR AFRICAN-AMERICAN > 60; GFR NON-AFRICAN AMERICAN > 60
[2017-12-28] MEDS ORDERED: Iodixanol 320 mg/ml 150 ml Bottle IV ONE (01:30)
--- NOTE | 2017-12-28 02:30 | CP.PCM.HP ---
<Jing London - Last Filed: 12/28/17 04:50> History of Present Illness - History of Present Illness History of Present Illness: cc: shortness of breath Mr. Farrar is a 72 year old English speaking male PMH Chronic Obstructive Pulmonary Disease on 3L home oxygen, coronary artery disease s/p CABG and stents , hypertension, pancreatic tumor comes to [facility] today complaining of worsening shortness of breath x2 days. He is bedridden and can only ambulate with a walker, but he has not gotten up out of bed these last two days. His O2 saturation read as low as 83% using a home oximeter. He estimates he urinates 10 times per day, and complains that it is sometimes hard to start the stream. He admits to occasional burning on urination, but is not currently. He admits to weakness and fatigue more than his baseline, as well as chills, dizziness, blurry/double vision, and minimally productive cough. Denies fever, lightheadedness, syncope, chest pain, palpitations, abdominal pain, nausea, vomiting, swelling of the hands or feet, rash, sore throat, dysphagia, sick contacts, recent sickness. PMH: COPD on 3L home O2, CAD s/p CABG and stents, HTN, pancreatic tumor Home Meds: Tricor 145mg po daily, Zebeta 5mg po daily, Flomax 0.4mg po daily, Prednisone 5mg po bid, Singulair 10mg po HS, Plaquenil 200mg po bid, Lasix 20mg po daily, Ergocalciferol [id number] po q7d, Colace 100mg po daily, Plavix 75mg po daily, Oscal 500mg po daily, Lipitor 20mg po HS, Alendronate Sodium 70mg po Allergies: NKDA PSxH: CABG 1999, left hip ORIF 2006, open heart 2010, bilateral cataract 2011, thoracic reconstruction 2012, cervical spine 2014 SocHx: Denies alcohol, illicit drugs. Ex-smoker, quit 2013. Lives at home with and son. FamHx: Mother and Father both s/p NH, ages unknown. Brother: stroke - 85 years old Daughter: Xochitl [phone], Son: Karson Full Code PMD: Neo. Pulm: Faisal. Cardio: Hannallah Present on Admission - Present on Admission Any Indicators Present on Admission: No Review of Systems - Constitutional Constitutional: Anorexia, Chills, Fatigue, Headache, Weight Loss, Weakness. absent: Excessive Sweating, Fever, Frequent Falls, Increased Appetite, Malaise, Night Sweats - EENT Eyes: Blurred Vision, Diplopia. absent: Discharge, Dry Eye, Floaters, Itchy Eyes, Loss of Peripheral Vision, Photophobia, Sees Flashes, Spots in Vision, Tunnel Vision, Loss of Vision Ears: Tinnitus Nose/Mouth/Throat: Dry Mouth. absent: Nasal Congestion, Nasal Discharge, Post Nasal Drip, Sinus Pain, Dysphagia, Halitosis, Hoarsness - Cardiovascular Cardiovascular: Chest Pain with Activity, Dyspnea on Exertion. absent: Diaphoresis, Pain Radiating to Arm/Neck/Jaw, Lightheadedness, Palpitations, Pedal Edema, Radiating Pain - Respiratory Respiratory: Cough, Dyspnea on Exertion. absent: Hemoptysis, Wheezing, Pain on Inspiration, Chest Congestion, Excessive Mucous Production, Change in Mucous Color - Gastrointestinal Gastrointestinal: absent: Constipation, Diarrhea, Dyspepsia, Dysphagia, Heartburn, Nausea, Odynophagia, Vomiting - Genitourinary Genitourinary: Difficulty Urinating, Urinary Frequency. absent: Dysuria, Hematuria, Urinary Incontinence, Voiding Freq/Small Amts - Neurological Neurological: Dizziness, Headaches. absent: Disequilibrium, Numbness, Loss of Vision, Memory Loss, Paresthesias, Restless Legs - Psychiatric Psychiatric: absent: Anxiety, Confusion, Depression - Endocrine Endocrine: absent: Deepening of Voice, Excessive Sweating, Heat Intolorance, Polydipsia, Polyphagia, Polyuria - Hematologic/Lymphatic Hematologic: absent: Easy Bleeding, Easy Bruising Past Patient History - Infectious Disease Hx of Infectious Diseases: None - Past Medical History & Family History Past Medical History?: Yes Pertinent Family History: Mother and Father s/p NH - unknown ages Brother Stroke @ 65 years old - Past Social History Smoking Status: Former Smoker Alcohol: None Drugs: Denies - CARDIAC Hx Congestive Heart Failure: No Hx Hypercholesterolemia: Yes Hx Hypertension: Yes - PULMONARY Hx Asthma: Yes Hx Chronic Obstructive Pulmonary Disease (COPD): Yes Hx Sleep Apnea: Yes - NEUROLOGICAL Hx Alzheimer's Disease: Yes Hx Seizures: No - HEENT Hx HEENT Problems: No - RENAL Hx Chronic Kidney Disease: No - ENDOCRINE/METABOLIC Hx Hypothyroidism: No - HEMATOLOGICAL/ONCOLOGICAL Hx Human Immunodeficiency Virus (HIV): No - INTEGUMENTARY Hx Dermatological Problems: No - MUSCULOSKELETAL/RHEUMATOLOGICAL Hx Arthritis: Yes (BACK) Hx Fractures: Yes Hx Rheumatoid Arthritis: No - GASTROINTESTINAL Hx Gastrointestinal Disorders: No - GENITOURINARY/GYNECOLOGICAL Hx Sexually Transmitted Disorders: No - PSYCHIATRIC Hx Substance Use: No - SURGICAL HISTORY Hx Coronary Artery Bypass Graft: Yes (1999) Hx Coronary Stent: Yes - ANESTHESIA Hx Anesthesia: Yes Hx Anesthesia Reactions: No Hx Malignant Hyperthermia: No Meds Allergies/Adverse Reactions: Allergies Allergy/AdvReac Type Severity Reaction Status Date / Time Penicillins Allergy Unknown RASH Verified 12/27/17 20:38 Physical Exam - Constitutional Appears: Non-toxic, No Acute Distress - Head Exam Head Exam: ATRAUMATIC, NORMOCEPHALIC - Eye Exam Eye Exam: EOMI, Normal appearance, PERRL - ENT Exam ENT Exam: Mucous Membranes Dry, Normal Exam - Neck Exam Neck exam: Positive for: Normal Inspection. Negative for: Lymphadenopathy, Thyromegaly - Respiratory Exam Respiratory Exam: Accessory Muscle Use, Decreased Breath Sounds, Rhonchi, Wheezes, NORMAL BREATHING PATTERN. absent: Chest Wall Tenderness, Respiratory Distress Additional comments: on NC 3L O2 coarse rhonchi on bilateral lower bases, expiratory wheezes appreciated diffusely mild accessory muscle use - Cardiovascular Exam Cardiovascular Exam: REGULAR RHYTHM, +S1, +S2. absent: Gallop, JVD, Rubs, Systolic Murmur Additional comments: visible well healed surgical scar down sternum. palpable misalignment of sternal bone fragments - GI/Abdominal Exam GI & Abdominal Exam: Normal Bowel Sounds, Soft. absent: Firm, Guarding, Tenderness Additional comments: umbilical hernia - Extremities Exam Extremities exam: Positive for: normal inspection, pedal pulses present. Negative for: calf tenderness, joint swelling, pedal edema, tenderness Additional comments: IV in left AC peripheral pulses present (radial, DP) no edema - Back Exam Additional comments: kyphosis with palpable plates along surgical scar - Neurological Exam Neurological exam: Alert, CN II-XII Intact, Oriented x3, Reflexes Normal - Psychiatric Exam Psychiatric exam: Normal Affect, Normal Mood - Skin Skin Exam: Dry, Intact, Pallor, Warm Additional comments: tenting Results - Vital Signs Recent Vital Signs: Last Vital Signs Temp 97 F L 12/28/17 00:41 Pulse 76 12/28/17 00:41 Resp 24 12/28/17 00:41 BP 93/62 L 12/28/17 00:41 Pulse Ox 96 12/28/17 00:41 - Labs Result Diagrams: 12/27/17 20:49 12/27/17 20:49 Labs: Laboratory Results - last 24 hr 12/27/17 12/27/17 12/27/17 20:49 20:49 20:49 WBC 2.7 L RBC 4.24 L Hgb 14.2 D Hct 45.3 MCV 106.7 H D MCH 33.6 H MCHC 31.4 L RDW 18.4 H Plt Count 120 L D MPV 9.5 Neut % (Auto) 61.6 Lymph % (Auto) 29.0 Saunders % (Auto) 8.7 Eos % (Auto) 0.1 Baso % (Auto) 0.6 Neut # (Auto) 1.6 L Lymph # (Auto) 0.8 L Saunders # (Auto) 0.2 Eos # (Auto) 0.0 Baso # (Auto) 0.0 PT 10.0 INR 0.9 APTT 40 H Puncture Site pCO2 pO2 HCO3 ABG pH ABG Total CO2 ABG O2 Saturation ABG Base Excess Andrei Test ABG Potassium A-a O2 Difference Respiratory Index Lactate Liter Flow FiO2 Sodium 140 Potassium 4.7 Chloride 94 L Carbon Dioxide 39 H Anion Gap 12 BUN 24 H Creatinine 0.9 Est GFR ( Amer) > 60 Est GFR (Non-Af Amer) > 60 Random Glucose 87 Calcium 9.5 Magnesium 1.9 Total Bilirubin 0.8 AST 56 ALT 46 Alkaline Phosphatase 40 Troponin I 0.0310 NT-Pro-B Natriuret Pep 4420 H Total Protein 6.7 Albumin 3.6 Globulin 3.1 Albumin/Globulin Ratio 1.2 Arterial Blood Potassium 12/27/17 21:17 WBC RBC Hgb Hct MCV MCH MCHC RDW Plt Count MPV Neut % (Auto) Lymph % (Auto) Saunders % (Auto) Eos % (Auto) Baso % (Auto) Neut # (Auto) Lymph # (Auto) Saunders # (Auto) Eos # (Auto) Baso # (Auto) PT INR APTT Puncture Site Lr pCO2 60 H pO2 94 HCO3 31.3 H ABG pH 7.38 ABG Total CO2 37.3 H ABG O2 Saturation 99.1 H ABG Base Excess 8.2 H Andrei Test Pos ABG Potassium 4.0 A-a O2 Difference 88.0 Respiratory Index 0.9 Lactate 0.8 Liter Flow 5.0 FiO2 36.0 Sodium 138.0 Potassium Chloride 102.0 Carbon Dioxide Anion Gap BUN Creatinine Est GFR ( Amer) Est GFR (Non-Af Amer) Random Glucose Calcium Magnesium Total Bilirubin AST ALT Alkaline Phosphatase Troponin I NT-Pro-B Natriuret Pep Total Protein Albumin Globulin Albumin/Globulin Ratio Arterial Blood Potassium 4.0 Assessment & Plan - Assessment and Plan (Free Text) Plan: 1) Shortness of Breath COPD exacerbation? PE? new onset CHF? CXR (12/27) completed, pending read CT Chest Angio (12/28) completed, pending read CT Abdomen/Pelvis with IV contrast (12/28) completed, pending read On admission: Trop I 0.0310 BNP 4420 (previously in the 815 on 12/16/15) O2 3L NC continuous home Singulair 10mg po HS O2 sat has been consistently in the 90s% since moving pulse ox to forehead rather than finger. Educated on proper home oximetry technique, including warming hands prior to reads 2) Hx of Hypertension home Zebeta 5mg po daily (pharmacy will likely switch to metoprolol) home Flomax 0.4mg po daily HOLD home Lasix 3) Hx of Hypercholesterolemia home Tricor 145mg po daily home Atorvastatin 20mg po HS (pharmacy will likely switch to rosuvastatin ) 4) Hx Pancytopenia On admission: WBC 2/7 Hgb 14.2 Hct 45.3 Plt 120 Alb 3.6, suspect dehydration based on physical findings and comparison to previous admissions MCV 106.7 on admission unknown length of time on current RA Rx, consider recent switch from methotrexate? Monitor via AM labs HOLD diuretics - f/u folate, VitB12 - Consider transfusion if values drop beyond baseline established during previous hospitalizations 5) Hx of Rheumatoid Arthritis home Prednisone 5mg po bid home Plaquenil 200mg po bid 6) Hx Osteoporosis home Oscal 500mg po daily home Alendronate sodium 70 mg po daily HOLD home Ergocalciferol until f/u VitD 7) Prophylaxis DVT: home Plavix 75mg po daily, SCDs GI: Protonix 20mg po daily home Colace 100mg po daily Heart Healthy Diet 2gNa NS @ 100mls/hr - Date & Time Date: 12/28/17 Time: 00:14 <Oni Lerma P - Last Filed: 12/28/17 07:35> Results - Vital Signs Recent Vital Signs: Last Vital Signs Temp 98.4 F 12/28/17 03:43 Pulse 77 12/28/17 06:00 Resp 21 12/28/17 06:00 BP 93/51 L 12/28/17 06:00 Pulse Ox 94 L 12/28/17 06:00 - Labs Result Diagrams: 12/28/17 06:14 12/28/17 06:14 Labs: Laboratory Results - last 24 hr 12/27/17 12/27/17 12/27/17 20:49 20:49 20:49 WBC 2.7 L RBC 4.24 L Hgb 14.2 D Hct 45.3 MCV 106.7 H D MCH 33.6 H MCHC 31.4 L RDW 18.4 H Plt Count 120 L D MPV 9.5 Neut % (Auto) 61.6 Lymph % (Auto) 29.0 Saunders % (Auto) 8.7 Eos % (Auto) 0.1 Baso % (Auto) 0.6 Neut # (Auto) 1.6 L Lymph # (Auto) 0.8 L Saunders # (Auto) 0.2 Eos # (Auto) 0.0 Baso # (Auto) 0.0 PT 10.0 INR 0.9 APTT 40 H Puncture Site pCO2 pO2 HCO3 ABG pH ABG Total CO2 ABG O2 Saturation ABG Base Excess Andrei Test ABG Potassium A-a O2 Difference Respiratory Index Lactate Liter Flow FiO2 Sodium 140 Potassium 4.7 Chloride 94 L Carbon Dioxide 39 H Anion Gap 12 BUN 24 H Creatinine 0.9 Est GFR ( Amer) > 60 Est GFR (Non-Af Amer) > 60 Random Glucose 87 Calcium 9.5 Magnesium 1.9 Total Bilirubin 0.8 AST 56 ALT 46 Alkaline Phosphatase 40 Troponin I 0.0310 NT-Pro-B Natriuret Pep 4420 H Total Protein 6.7 Albumin 3.6 Globulin 3.1 Albumin/Globulin Ratio 1.2 25-OH Vitamin D Total Arterial Blood Potassium 12/27/17 12/28/17 12/28/17 21:17 06:14 06:14 WBC 2.3 L RBC 3.67 L Hgb 12.6 Hct 39.6 MCV 108.0 H MCH 34.3 H MCHC 31.8 L RDW 18.2 H Plt Count 95 L D MPV 9.5 Neut % (Auto) 60.9 Lymph % (Auto) 30.3 Saunders % (Auto) 8.6 Eos % (Auto) 0.0 Baso % (Auto) 0.2 Neut # (Auto) 1.4 L Lymph # (Auto) 0.7 L Saunders # (Auto) 0.2 Eos # (Auto) 0.0 Baso # (Auto) 0.0 PT INR APTT Puncture Site Lr pCO2 60 H pO2 94 HCO3 31.3 H ABG pH 7.38 ABG Total CO2 37.3 H ABG O2 Saturation 99.1 H ABG Base Excess 8.2 H Andrei Test Pos ABG Potassium 4.0 A-a O2 Difference 88.0 Respiratory Index 0.9 Lactate 0.8 Liter Flow 5.0 FiO2 36.0 Sodium 138.0 140 Potassium 4.3 Chloride 102.0 96 L Carbon Dioxide 40 H* Anion Gap 9 L BUN 22 H Creatinine 1.0 Est GFR ( Amer) > 60 Est GFR (Non-Af Amer) > 60 Random Glucose 141 H Calcium 9.0 Magnesium Total Bilirubin 0.6 AST 43 ALT 37 Alkaline Phosphatase 35 L Troponin I NT-Pro-B Natriuret Pep Total Protein 5.8 L Albumin 3.1 L Globulin 2.7 Albumin/Globulin Ratio 1.2 25-OH Vitamin D Total Arterial Blood Potassium 4.0 12/28/17 06:14 WBC RBC Hgb Hct MCV MCH MCHC RDW Plt Count MPV Neut % (Auto) Lymph % (Auto) Saunders % (Auto) Eos % (Auto) Baso % (Auto) Neut # (Auto) Lymph # (Auto) Saunders # (Auto) Eos # (Auto) Baso # (Auto) PT INR APTT Puncture Site pCO2 pO2 HCO3 ABG pH ABG Total CO2 ABG O2 Saturation ABG Base Excess Andrei Test ABG Potassium A-a O2 Difference Respiratory Index Lactate Liter Flow FiO2 Sodium Potassium Chloride Carbon Dioxide Anion Gap BUN Creatinine Est GFR ( Amer) Est GFR (Non-Af Amer) Random Glucose Calcium Magnesium Total Bilirubin AST ALT Alkaline Phosphatase Troponin I NT-Pro-B Natriuret Pep Total Protein Albumin Globulin Albumin/Globulin Ratio 25-OH Vitamin D Total 36.0 Arterial Blood Potassium Attending/Attestation - Attestation I have personally seen and examined this patient.: Yes I have fully participated in the care of the patient.: Yes I have reviewed all pertinent clinical information: Yes Notes (Text): 12/28/17 07:05 Assessment * Brought in for c/o weakness sob, at home on 3.5lit of o2, cpap at night here spo2 on 3lit 91-95%, and not sob in ER, afebrile, CTA, not done in pulm art phase, shows questionable infiltrated on the base of chronic fibrosis, atelectesis * Osteoporosis, multiple vertebral compression fractures, vertebral screws, kyphosis and secondary restrictive lung disease * Clinical and lab dehydration likely form the lasix, with secondary hemoconcentration, borderline hypotension, also possible cause of symptoms * ?pancreatic tumor no changes for > 1 yr * CAD, CABG, sternal non union, ischemic heart disease * Chronic macrocytosis, pancytopenia, likely from RA meds, will check b12, fa Plan * Procalcitonin, vit b12, FA, d dimer, venous doppler * If above w/u negative, if sob worse then baseline atypical anginal symptoms could be dd * IVF, hold lasix for dehydration * Avelox, patient allergic to pcn * Rest of home meds * Out patient f/u with Rheumatology/hematology physician for pancytopenia * DVT prophylaxis.
[2017-12-28] MEDS: Sodium Chloride 0.9% 1,000 ML IV SCH ×2 (04:30→13:25)
[2017-12-28] MEDS ORDERED: ALENDRONATE SODIUM 70 MG PO SCH (04:45)
[2017-12-28 06:24] LABS: BASO % 0.2 % (0.0-2.0); HEMOGLOBIN 12.6 g/dL (12.0-18.0); LYMPH # 0.7 K/uL (1.0-4.3); LYMPH % 30.3 % (20.0-40.0); MEAN CORPUSCULAR HEMOGLOBIN 34.3 pg (27.0-31.0); MEAN CORPUSCULAR HGB CONC 31.8 g/dL (33.0-37.0); MEAN PLATELET VOLUME 9.5 fL (7.2-11.7); MONO # 0.2 K/uL (0.0-0.8); MONO % 8.6 % (0.0-10.0); NEUT # 1.4 K/uL (1.8-7.0); NEUT % 60.9 % (50.0-75.0); NRBC % 0.1 % (0.0-2.0); RBC 3.67 Mil/uL (4.40-5.90); RED CELL DISTRIBUTION WIDTH 18.2 % (11.5-14.5); WHITE BLOOD COUNT 2.3 K/uL (4.8-10.8)
[2017-12-28] MEDS ORDERED: Moxifloxacin IV 400mg/250ml NS 400 MG/250 ML BAG IVPB SCH ×2 (07:00→18:15)
[2017-12-28 07:02] LABS: ALB/GLOB RATIO 1.2 (1.0-2.1); ALBUMIN 3.1 g/dL (3.5-5.0); ALT/SGPT 37 U/L (21-72); AST/SGOT 43 U/L (17-59); BLOOD UREA NITROGEN 22 mg/dL (9-20); GFR AFRICAN-AMERICAN > 60; GFR NON-AFRICAN AMERICAN > 60
[2017-12-28 07:43] LABS: FOLATE 7.2 ng/mL
[2017-12-28] MEDS: Pantoprazole 20 mg EC Tab PO SCH (10:09)
--- NOTE | 2017-12-28 11:38 | RAD ---
Date of service: 12/27/2017 PROCEDURE: CHEST RADIOGRAPH, 1 VIEW HISTORY: SOB COMPARISON: Comparison is made with 08/30/2017 FINDINGS: LUNGS: Heterogeneous opacities at the lower lobes larger on the right associated with elevation of the right hemidiaphragm. Findings may represent infiltrate, aspiration or pulmonary congestion PLEURA: Blunting of both costophrenic angle are noted. CARDIOVASCULAR: The heart is prominent in size/mildly enlarged. OSSEOUS STRUCTURES: There is internal fixation at the upper thoracic spine. VISUALIZED UPPER ABDOMEN: Normal. OTHER FINDINGS: None. IMPRESSION: Bilateral lower lobe opacities and infiltrates may represent pneumonia or aspiration. Mild pulmonary vascular congestion.
[2017-12-28] MEDS: Albuterol-Ipratrop 3 mg / 0.5 (3 ml) UD INH SCH ×2 (19:42→23:26)
[2017-12-29] MEDS: Sodium Chloride 0.9% 1,000 ML IV SCH (01:47)
[2017-12-29] MEDS: Albuterol-Ipratrop 3 mg / 0.5 (3 ml) UD INH SCH ×6 (03:09→23:49)
[2017-12-29 06:45] LABS: BASO % 0.6 % (0.0-2.0); HEMOGLOBIN 11.4 g/dL (12.0-18.0); LYMPH # 0.9 K/uL (1.0-4.3); LYMPH % 46.1 % (20.0-40.0); MEAN CORPUSCULAR HEMOGLOBIN 34.3 pg (27.0-31.0); MEAN CORPUSCULAR HGB CONC 31.4 g/dL (33.0-37.0); MEAN PLATELET VOLUME 9.8 fL (7.2-11.7); MONO # 0.2 K/uL (0.0-0.8); MONO % 10.4 % (0.0-10.0); NEUT # 0.8 K/uL (1.8-7.0); NEUT % 42.9 % (50.0-75.0); NRBC % 0.4 % (0.0-2.0); RBC 3.34 Mil/uL (4.40-5.90); RED CELL DISTRIBUTION WIDTH 18.5 % (11.5-14.5)
[2017-12-29 06:54] LABS: WHITE BLOOD COUNT 1.9 K/uL (4.8-10.8)
[2017-12-29 07:51] LABS: ALB/GLOB RATIO 1.1 (1.0-2.1); ALBUMIN 2.7 g/dL (3.5-5.0); ALT/SGPT 37 U/L (21-72); AST/SGOT 47 U/L (17-59); BLOOD UREA NITROGEN 19 mg/dL (9-20); CALCIUM 8.5 mg/dl (8.6-10.4); GFR AFRICAN-AMERICAN > 60; GFR NON-AFRICAN AMERICAN > 60
--- NOTE | 2017-12-29 07:51 | CP.PCM.PN ---
<Prince Arias - Last Filed: 12/29/17 22:05> Subjective - Date & Time of Evaluation Date of Evaluation: 12/29/17 Time of Evaluation: 07:51 - Subjective Subjective: PGY-[address] Sridhar Muniz Patient is seen and examined at bedside. Patient is lying comfortably in bed with bipap mask on. Patient says feeling better, without pain since he had the surgery done. He admits to stomach pain when he goes to the bathroom and with certains types of food. Patient states he is restless at nights, preventing him from sleeping. Patient denies fevers, chills, headaches, sob, chest pain, nausea ,vomiting, diarrhea or constipation. Objective - Vital Signs/Intake and Output Vital Signs (last 24 hours): Temp Pulse Resp BP Pulse Ox 98.5 F 80 21 115/57 L 98 12/29/17 04:00 12/29/17 04:00 12/29/17 04:00 12/29/17 03:54 12/29/17 04:00 Intake and Output: 12/29/17 12/29/17 06:59 18:59 Intake Total 1440 Output Total 1000 Balance 440 - Medications Medications: Current Medications Albuterol/Ipratropium (Duoneb 3 Mg/0.5 Mg (3 Ml) Ud) 3 ml INH RQ4 [facility] Last Admin: 12/29/17 03:09 Dose: 3 ml Bisoprolol Fumarate (Zebeta) 5 mg PO DAILY [facility] Last Admin: 12/28/17 10:09 Dose: 5 mg Calcium Carbonate (Oscal) 500 mg PO DAILY [facility] Last Admin: 12/28/17 10:09 Dose: 500 mg Clopidogrel Bisulfate (Plavix) 75 mg PO DAILY [facility] Last Admin: 12/28/17 10:08 Dose: 75 mg Docusate Sodium (Colace) 100 mg PO DAILY [facility] Last Admin: 12/28/17 10:09 Dose: 100 mg Fenofibrate (Tricor) 145 mg PO DAILY [facility] Last Admin: 12/28/17 10:09 Dose: 145 mg Heparin Sodium (Porcine) (Heparin) 5,000 units SC Q12 [facility] Last Admin: 12/28/17 21:11 Dose: 5,000 units Hydroxychloroquine Sulfate (Plaquenil) 200 mg PO BID [facility] PRN Reason: Protocol Last Admin: 12/28/17 17:26 Dose: 200 mg Sodium Chloride (Sodium Chloride 0.9%) 1,000 mls @ 100 mls/hr IV .Q10H [facility] Last Admin: 12/29/17 01:47 Dose: 100 mls/hr Montelukast Sodium (Singulair) 10 mg PO HS [facility] Last Admin: 12/28/17 21:10 Dose: 10 mg Pantoprazole Sodium (Protonix Ec Tab) 20 mg PO DAILY [facility] Last Admin: 12/28/17 10:09 Dose: 20 mg Prednisone (Prednisone Tab) 5 mg PO BID [facility] Last Admin: 12/28/17 17:26 Dose: 5 mg Rosuvastatin Calcium (Crestor) 10 mg PO HS [facility] Last Admin: 12/28/17 21:10 Dose: 10 mg Tamsulosin HCl (Flomax) 0.4 mg PO DAILY [facility] Last Admin: 12/28/17 10:09 Dose: 0.4 mg - Labs Labs: 12/29/17 06:38 12/28/17 06:14 PT 10.0 SECONDS (9.7-12.2) 12/27/17 20:49 INR 0.9 12/27/17 20:49 APTT 40 SECONDS (21-34) H 12/27/17 20:49 - Constitutional Appears: Well, Non-toxic, No Acute Distress - Head Exam Head Exam: ATRAUMATIC, NORMAL INSPECTION, NORMOCEPHALIC - Eye Exam Eye Exam: EOMI, Normal appearance - ENT Exam ENT Exam: Mucous Membranes Moist, Normal Exam - Neck Exam Neck Exam: Full ROM, Normal Inspection - Respiratory Exam Respiratory Exam: Clear to Ausculation Bilateral, NORMAL BREATHING PATTERN - Cardiovascular Exam Cardiovascular Exam: REGULAR RHYTHM, +S1, +S2 - GI/Abdominal Exam GI & Abdominal Exam: Soft, Normal Bowel Sounds. absent: Tenderness, Rebound - Extremities Exam Extremities Exam: Full ROM, Normal Inspection - Back Exam Back Exam: Full ROM, NORMAL INSPECTION - Neurological Exam Neurological Exam: Alert, Awake, Oriented x3 - Psychiatric Exam Psychiatric exam: Normal Affect, Normal Mood - Skin Skin Exam: Intact, Normal Color, Warm Assessment and Plan - Assessment and Plan (Free Text) Plan: Shortness of Breath COPD exacerbation? PE? new onset CHF? CXR (12/27)- Bilateral lower lobe opactites and infiltrates may represent pneumonia or aspiration. Mild vascular congestion. CT Chest Angio (12/28) completed, pending read CT Abdomen/Pelvis with IV contrast (12/28) completed, pending read On admission: Trop I 0.0310 BNP 4420 (previously in the 815 on 12/16/15) O2 3L NC continuous home Singulair 10mg po HS O2 sat has been consistently in the 90s% since moving pulse ox to forehead rather than finger. Educated on proper home oximetry technique, including warming hands prior to reads. O2 sat continues to be stable 12/29 Patient on BIPAP -- IPAP 12, EPAP 5, FIO2 30 abx: ceftriaxone IvPB Q12 (started 12/29), Azithromycin IVPB daily (12/29). -noted Penicillin allergy. consider changing to Cipro 400 TID if reaction occurs. Hx of Hypertension home Zebeta 5mg po daily (pharmacy will likely switch to metoprolol) home Flomax 0.4mg po daily HOLD home Lasix Hx of Hypercholesterolemia home Tricor 145mg po daily rosuvastatin 10 mg PO HS Hx Pancytopenia On admission: WBC 2/7 Hgb 14.2 Hct 45.3 Plt 120 Alb 3.6, suspect dehydration based on physical findings and comparison to previous admissions MCV 106.7 on admission unknown length of time on current RA Rx, consider recent switch from methotrexate? Monitor via AM labs HOLD diuretics - Consider transfusion if values drop beyond baseline established during previous hospitalizations Dr Cruz consulted - likely exacerbated by acute illness. consider holding plaquenil as can cause cytopenias. will check iron, b12, folate stores. if plt count cont to drop, will need to hold heparin and rule out HIT hx of pancreatic mass Ca 19-9: 19.9 CEA: 2.7 Dr. Craig, consulted - f/u ct abdomen, CA 19-9 normal, will add chromogranin A level Hx of Rheumatoid Arthritis home Prednisone 5mg po bid home Plaquenil 200mg po bid Hx Osteoporosis home Oscal 500mg po daily home Alendronate sodium 70 mg po daily HOLD home Ergocalciferol until f/u VitD Prophylaxis DVT: home Plavix 75mg po daily, SCDs GI: Protonix 20mg po daily home Colace 100mg po daily Heart Healthy Diet 2gNa NS @ 100mls/hr Plan discussed with Dr Sridhar Arias, PGY-1 <Sridhar Muniz H - Last Filed: 01/02/18 14:59> Objective - Vital Signs/Intake and Output Vital Signs (last 24 hours): Temp Pulse Resp BP Pulse Ox 97.8 F 82 20 95/59 L 98 01/02/18 07:35 01/02/18 13:36 01/02/18 07:35 01/02/18 09:32 01/02/18 07:35 Intake and Output: 01/02/18 01/02/18 06:59 18:59 Intake Total 420 350 Output Total 600 Balance -180 350 - Medications Medications: Current Medications Acetaminophen (Tylenol 325mg Tab) 650 mg PO Q6 PRN PRN Reason: Headache Last Admin: 01/01/18 19:33 Dose: 650 mg Albuterol/Ipratropium (Duoneb 3 Mg/0.5 Mg (3 Ml) Ud) 3 ml INH RQ4 [facility] Last Admin: 01/02/18 13:36 Dose: 3 ml Bisoprolol Fumarate (Zebeta) 5 mg PO DAILY [facility] Last Admin: 01/02/18 09:13 Dose: Not Given Calcium Carbonate (Oscal) 500 mg PO DAILY [facility] Last Admin: 01/02/18 09:23 Dose: 500 mg Clopidogrel Bisulfate (Plavix) 75 mg PO DAILY [facility] Last Admin: 01/02/18 09:22 Dose: 75 mg Docusate Sodium (Colace) 100 mg PO DAILY [facility] Last Admin: 01/02/18 09:23 Dose: 100 mg Fenofibrate (Tricor) 145 mg PO DAILY [facility] Last Admin: 01/02/18 09:29 Dose: 145 mg Ceftriaxone Sodium 1 gm/ (Sodium Chloride) 100 mls @ 100 mls/hr IVPB Q12H [facility] PRN Reason: Protocol Last Admin: 01/02/18 09:02 Dose: 100 mls/hr Azithromycin 500 mg/ Sodium (Chloride) 250 mls @ 250 mls/hr IVPB DAILY [facility] PRN Reason: Protocol Last Admin: 01/02/18 10:38 Dose: 250 mls/hr Methylprednisolone (Solu-Medrol) 40 mg IV Q6 [facility] Last Admin: 01/02/18 14:19 Dose: 40 mg Montelukast Sodium (Singulair) 10 mg PO HS [facility] Last Admin: 01/01/18 21:28 Dose: 10 mg Pantoprazole Sodium (Protonix Ec Tab) 20 mg PO DAILY [facility] Last Admin: 01/02/18 09:23 Dose: 20 mg Rosuvastatin Calcium (Crestor) 10 mg PO HS [facility] Last Admin: 01/01/18 21:28 Dose: 10 mg Tamsulosin HCl (Flomax) 0.4 mg PO DAILY [facility] Last Admin: 01/02/18 09:23 Dose: 0.4 mg - Labs Labs: 01/02/18 08:07 01/02/18 08:07 PT 10.0 SECONDS (9.7-12.2) 12/27/17 20:49 INR 0.9 12/27/17 20:49 APTT 40 SECONDS (21-34) H 12/27/17 20:49 Attending/Attestation - Attestation I have personally seen and examined this patient.: Yes I have fully participated in the care of the patient.: Yes I have reviewed all pertinent clinical information, including history, physical exam and plan: Yes Notes (Text): Medical attending: Patient was seen and examined by me. Agree with the above note by the resident The patient was not in any acute distress at that time. Per review of lab work he is pancytopenia and we will notifying his Compressor Operator Portable Oncologist. There appears to be old notes from several months past due to concerns about a mass on pancreatic tail. 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
[2017-12-29] MEDS: Pantoprazole 20 mg EC Tab PO SCH (09:33)
[2017-12-29] MEDS: Azithromycin 500 MG in Sodium Chloride 0.9% 250 ML IVPB SCH (09:39)
[2017-12-29 10:25] LABS: FOLATE 6.3 ng/mL
--- NOTE | 2017-12-29 20:30 | CP.PCM.CON ---
History of Present Illness - History of Present Illness History of Present Illness: 72 year old male with a history of COPD on home oxygen, CAD s/p CABG, HTN, ? pancreatic tumor, admitted with shortness of breath, with pancytopenia. The patient reports to progress dyspnea on exertion for 2-3 days which has left him bedridden. He also notes to increased urination and difficulty passing his urination. He denies fevers and chills. He was seen by me in 2017 for mild anemia and leukocytosis. His w/u revealed a hgb around 12 and WBC of 11 with predominant neutrophilia. His plt count at the time was normal. He denies abnormal bleeding and bruising. Past medical history: COPD on home oxygen, CAD s/p CABG, HTN, ? pancreatic tumor Past surgical history: CABG, left hip surgery Family history: Denies hematologic and oncologic problems Social history: Denies tobacco, alcohol, and illicit drug use. Allergies: Penicillins Review of systems: All remaining review of systems including HEENT, cardiovascular, respiratory, gastrointestinal, genitourinary, musculoskeletal, dermatologic, neurologic, and psychiatric are negative unless mentioned in the HPI. Past Patient History - Infectious Disease Hx of Infectious Diseases: None - Past Medical History & Family History Past Medical History?: Yes - Past Social History Smoking Status: Former Smoker Alcohol: None Drugs: Denies - CARDIAC Hx Congestive Heart Failure: No Hx Hypercholesterolemia: Yes Hx Hypertension: Yes - PULMONARY Hx Asthma: Yes Hx Chronic Obstructive Pulmonary Disease (COPD): Yes Hx Sleep Apnea: Yes - NEUROLOGICAL Hx Alzheimer's Disease: Yes Hx Seizures: No - HEENT Hx HEENT Problems: No - RENAL Hx Chronic Kidney Disease: No - ENDOCRINE/METABOLIC Hx Hypothyroidism: No - HEMATOLOGICAL/ONCOLOGICAL Hx Human Immunodeficiency Virus (HIV): No - INTEGUMENTARY Hx Dermatological Problems: No - MUSCULOSKELETAL/RHEUMATOLOGICAL Hx Arthritis: Yes (BACK) Hx Fractures: Yes Hx Rheumatoid Arthritis: No - GASTROINTESTINAL Hx Gastrointestinal Disorders: No - GENITOURINARY/GYNECOLOGICAL Hx Sexually Transmitted Disorders: No - PSYCHIATRIC Hx Substance Use: No - SURGICAL HISTORY Hx Coronary Artery Bypass Graft: Yes (1999) Hx Coronary Stent: Yes - ANESTHESIA Hx Anesthesia: Yes Hx Anesthesia Reactions: No Hx Malignant Hyperthermia: No Meds Allergies/Adverse Reactions: Allergies Allergy/AdvReac Type Severity Reaction Status Date / Time Penicillins Allergy Unknown RASH Verified 12/27/17 20:38 - Medications Medications: Current Medications Acetaminophen (Tylenol 325mg Tab) 650 mg PO Q6 PRN PRN Reason: Headache Last Admin: 12/29/17 16:32 Dose: 650 mg Albuterol/Ipratropium (Duoneb 3 Mg/0.5 Mg (3 Ml) Ud) 3 ml INH RQ4 [facility] Last Admin: 12/29/17 19:37 Dose: 3 ml Bisoprolol Fumarate (Zebeta) 5 mg PO DAILY [facility] Last Admin: 12/28/17 10:09 Dose: 5 mg Calcium Carbonate (Oscal) 500 mg PO DAILY [facility] Last Admin: 12/29/17 09:33 Dose: 500 mg Clopidogrel Bisulfate (Plavix) 75 mg PO DAILY [facility] Last Admin: 12/29/17 09:33 Dose: 75 mg Docusate Sodium (Colace) 100 mg PO DAILY [facility] Last Admin: 12/29/17 09:32 Dose: 100 mg Fenofibrate (Tricor) 145 mg PO DAILY [facility] Last Admin: 12/29/17 09:37 Dose: 145 mg Heparin Sodium (Porcine) (Heparin) 5,000 units SC Q12 [facility] Last Admin: 12/29/17 09:32 Dose: 5,000 units Hydroxychloroquine Sulfate (Plaquenil) 200 mg PO BID [facility] PRN Reason: Protocol Last Admin: 12/29/17 17:11 Dose: 200 mg Ceftriaxone Sodium 1 gm/ (Sodium Chloride) 100 mls @ 100 mls/hr IVPB Q12H [facility] PRN Reason: Protocol Last Admin: 12/29/17 09:31 Dose: 100 mls/hr Azithromycin 500 mg/ Sodium (Chloride) 250 mls @ 250 mls/hr IVPB DAILY [facility] PRN Reason: Protocol Last Admin: 12/29/17 09:39 Dose: 250 mls/hr Montelukast Sodium (Singulair) 10 mg PO HS [facility] Last Admin: 12/28/17 21:10 Dose: 10 mg Pantoprazole Sodium (Protonix Ec Tab) 20 mg PO DAILY [facility] Last Admin: 12/29/17 09:33 Dose: 20 mg Prednisone (Prednisone Tab) 5 mg PO BID [facility] Last Admin: 12/29/17 17:11 Dose: 5 mg Rosuvastatin Calcium (Crestor) 10 mg PO HS [facility] Last Admin: 12/28/17 21:10 Dose: 10 mg Tamsulosin HCl (Flomax) 0.4 mg PO DAILY [facility] Last Admin: 12/29/17 09:32 Dose: 0.4 mg Physical Exam - Head Exam Head Exam: ATRAUMATIC - Eye Exam Eye Exam: Normal appearance - ENT Exam ENT Exam: Mucous Membranes Dry - Respiratory Exam Respiratory Exam: Decreased Breath Sounds - Cardiovascular Exam Cardiovascular Exam: +S1, +S2 - GI/Abdominal Exam GI & Abdominal Exam: Normal Bowel Sounds - Neurological Exam Neurological exam: Oriented x3 - Psychiatric Exam Psychiatric exam: Normal Affect, Normal Mood - Skin Skin Exam: Warm Results - Vital Signs Recent Vital Signs: Last Vital Signs Temp 98.1 F 12/29/17 14:00 Pulse 56 L 12/29/17 19:37 Resp 18 12/29/17 16:00 BP 84/45 L 12/29/17 16:00 Pulse Ox 83 L 12/29/17 16:00 - Labs Result Diagrams: 12/29/17 06:38 12/29/17 06:37 Labs: Laboratory Results - last 24 hr 12/29/17 12/29/17 06:37 06:38 WBC 1.9 L* RBC 3.34 L Hgb 11.4 L Hct 36.4 MCV 109.0 H MCH 34.3 H MCHC 31.4 L RDW 18.5 H Plt Count 83 L MPV 9.8 Neut % (Auto) 42.9 L Lymph % (Auto) 46.1 H [place] % (Auto) 10.4 H Eos % (Auto) 0.0 Baso % (Auto) 0.6 Neut # (Auto) 0.8 L Lymph # (Auto) 0.9 L [place] # (Auto) 0.2 Eos # (Auto) 0.0 Baso # (Auto) 0.0 Sodium 140 Potassium 3.9 Chloride 100 Carbon Dioxide 36 H Anion Gap 8 L BUN 19 Creatinine 0.9 Est GFR ( Amer) > 60 Est GFR (Non-Af Amer) > 60 Random Glucose 73 L Calcium 8.5 L Total Bilirubin 0.4 AST 47 ALT 37 Alkaline Phosphatase 30 L Total Protein 5.2 L Albumin 2.7 L Globulin 2.5 Albumin/Globulin Ratio 1.1 Carcinoembryonic Ag 2.7 CA 19-9 Antigen 19.9 Vitamin B12 267 Folate 6.3 Assessment & Plan (1) Pancytopenia Assessment and Plan: likely exacerbated by acute illness consider holding plaquenil as can cause cytopenias will check iron, b12, folate stores if plt count cont to drop, will need to hold heparin and rule out HIT Status: Acute (2) Pancreatic mass Assessment and Plan: f/u ct abdomen CA 19-9 normal will add chromogranin A level Thank you for this interesting consult. Status: Acute
[2017-12-30] MEDS: Albuterol-Ipratrop 3 mg / 0.5 (3 ml) UD INH SCH ×5 (03:24→20:26)
[2017-12-30 05:43] LABS: BASO % 1.3 % (0.0-2.0); HEMOGLOBIN 10.6 g/dL (12.0-18.0); LYMPH # 0.6 K/uL (1.0-4.3); LYMPH % 44.3 % (20.0-40.0); MEAN CELL VOLUME 108.3 fL (80.0-94.0); MEAN CORPUSCULAR HEMOGLOBIN 34.4 pg (27.0-31.0); MEAN CORPUSCULAR HGB CONC 31.8 g/dL (33.0-37.0); MEAN PLATELET VOLUME 9.7 fL (7.2-11.7); MONO # 0.1 K/uL (0.0-0.8); MONO % 11.1 % (0.0-10.0); NEUT # 0.6 K/uL (1.8-7.0); NEUT % 43.3 % (50.0-75.0); NRBC % 0.1 % (0.0-2.0); RBC 3.07 Mil/uL (4.40-5.90); RED CELL DISTRIBUTION WIDTH 18.3 % (11.5-14.5)
[2017-12-30 05:59] LABS: WHITE BLOOD COUNT 1.3 K/uL (4.8-10.8)
[2017-12-30 06:20] LABS: ALBUMIN 2.5 g/dL (3.5-5.0); ALT/SGPT 38 U/L (21-72); AST/SGOT 41 U/L (17-59); BLOOD UREA NITROGEN 15 mg/dL (9-20); CALCIUM 8.3 mg/dl (8.6-10.4); GFR AFRICAN-AMERICAN > 60; GFR NON-AFRICAN AMERICAN > 60
--- NOTE | 2017-12-30 08:04 | CP.PCM.PN ---
<Isaura Agrawal - Last Filed: 12/30/17 21:19> Subjective - Date & Time of Evaluation Date of Evaluation: 12/30/17 Time of Evaluation: 09:30 - Subjective Subjective: PGY-1 Isaura Agrawal D.O. Medicine progress note for Dr. Luna service : Patient is seen and examined this morning. He is lying upright in his bed utilizing BiPAP. A virtual sample builder is used for Portuguese, but the patient speaks mostly in Kazakh. He states he is in good spirits and is happy when the doctors come to see him. He is comfortable right now, but he becomes short of breath easily when the BiPAP is removed. He states he only uses BiPAP occasionally while at home> He typically ambulated well with a walker and uses 3L O2 via NC at home. He denies pain at this time. He endorses a mild cough. He denies subjective fever and chills. Objective - Vital Signs/Intake and Output Vital Signs (last 24 hours): Temp Pulse Resp BP Pulse Ox 97.4 F L 64 18 119/68 100 12/30/17 07:00 12/30/17 07:00 12/30/17 07:00 12/30/17 07:00 12/30/17 07:00 Intake and Output: 12/30/17 12/30/17 06:59 18:59 Intake Total 400 Output Total 450 Balance -50 - Medications Medications: Current Medications Acetaminophen (Tylenol 325mg Tab) 650 mg PO Q6 PRN PRN Reason: Headache Last Admin: 12/29/17 16:32 Dose: 650 mg Albuterol/Ipratropium (Duoneb 3 Mg/0.5 Mg (3 Ml) Ud) 3 ml INH RQ4 [facility] Last Admin: 12/30/17 03:24 Dose: 3 ml Bisoprolol Fumarate (Zebeta) 5 mg PO DAILY [facility] Last Admin: 12/28/17 10:09 Dose: 5 mg Calcium Carbonate (Oscal) 500 mg PO DAILY [facility] Last Admin: 12/29/17 09:33 Dose: 500 mg Clopidogrel Bisulfate (Plavix) 75 mg PO DAILY [facility] Last Admin: 12/29/17 09:33 Dose: 75 mg Docusate Sodium (Colace) 100 mg PO DAILY [facility] Last Admin: 12/29/17 09:32 Dose: 100 mg Fenofibrate (Tricor) 145 mg PO DAILY [facility] Last Admin: 12/29/17 09:37 Dose: 145 mg Heparin Sodium (Porcine) (Heparin) 5,000 units SC Q12 [facility] Last Admin: 12/29/17 21:49 Dose: 5,000 units Hydroxychloroquine Sulfate (Plaquenil) 200 mg PO BID [facility] PRN Reason: Protocol Last Admin: 12/29/17 17:11 Dose: 200 mg Ceftriaxone Sodium 1 gm/ (Sodium Chloride) 100 mls @ 100 mls/hr IVPB Q12H [facility] PRN Reason: Protocol Last Admin: 12/29/17 21:47 Dose: 100 mls/hr Azithromycin 500 mg/ Sodium (Chloride) 250 mls @ 250 mls/hr IVPB DAILY [facility] PRN Reason: Protocol Last Admin: 12/29/17 09:39 Dose: 250 mls/hr Montelukast Sodium (Singulair) 10 mg PO HS [facility] Last Admin: 12/29/17 21:48 Dose: 10 mg Pantoprazole Sodium (Protonix Ec Tab) 20 mg PO DAILY [facility] Last Admin: 12/29/17 09:33 Dose: 20 mg Prednisone (Prednisone Tab) 5 mg PO BID [facility] Last Admin: 12/29/17 17:11 Dose: 5 mg Rosuvastatin Calcium (Crestor) 10 mg PO HS [facility] Last Admin: 12/29/17 21:48 Dose: 10 mg Tamsulosin HCl (Flomax) 0.4 mg PO DAILY [facility] Last Admin: 12/29/17 09:32 Dose: 0.4 mg - Labs Labs: 12/30/17 05:35 12/30/17 05:35 PT 10.0 SECONDS (9.7-12.2) 12/27/17 20:49 INR 0.9 12/27/17 20:49 APTT 40 SECONDS (21-34) H 12/27/17 20:49 - Constitutional Appears: No Acute Distress, Other (pleasant, cooperative) - Head Exam Head Exam: ATRAUMATIC, NORMAL INSPECTION, NORMOCEPHALIC Additional comments: wearing BiPAP - Eye Exam Eye Exam: EOMI, Normal appearance - ENT Exam ENT Exam: Mucous Membranes Moist - Neck Exam Neck Exam: Full ROM, Normal Inspection - Respiratory Exam Respiratory Exam: Rales (b/l lower lobes). absent: Respiratory Distress - Cardiovascular Exam Cardiovascular Exam: REGULAR RHYTHM - GI/Abdominal Exam GI & Abdominal Exam: Soft. absent: Tenderness - Rectal Exam Rectal Exam: Deferred - Extremities Exam Extremities Exam: Full ROM, Normal Inspection - Back Exam Back Exam: NORMAL INSPECTION - Psychiatric Exam Psychiatric exam: Normal Affect, Normal Mood - Skin Skin Exam: Dry, Intact, Normal Color, Warm Assessment and Plan - Assessment and Plan (Free Text) Assessment: Patient is a 72 yo Portuguese male with a PMH of COPD on 3L home O2, CAD s/p CABG and stents, HTN, and pancreatic tumor presented with shortness of breath and decreased O2 saturation. He clinically appears to be having a COPD exacerbation. He is still requiring regular BiPAP. PE was ruled out. Plan: Shortness of Breath- suspect COPD exacerbation - Pulm consult- V/Q scan not indicated - CXR- Bilateral lower lobe opactites and infiltrates may represent pneumonia or aspiration. Mild vascular congestion. - CT Chest Angio- limited study, no large PE seen - LE Doppler negative for DVT - CT Abdomen/Pelvis with IV contrast- stable pancreatic mass 1.7 cm - BiPAP prn- pt currently requiring continuously - Singulair 10mg po qhs - Ceftriaxone IvPB Q12 (started 12/29) - Azithromycin IVPB daily (started 12/29) - Noted Penicillin allergy. Consider changing to Cipro 400 TID if reaction occurs. 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 - Hem/onc consult - CA-19, CEA- normal - CT A/P- stable 1.7 cm - D-dimer >5250 - Chromogranin A level pending Hypertension - home Zebeta 5mg po daily - home Flomax 0.4mg po daily - home Lasix- hold Hypercholesterolemia - home Tricor 145mg po daily - Rosuvastatin 10 mg PO qhs Rheumatoid arthritis - Plaquenil 200 mg PO BID - Prednisone 5 mg PO BID Osteoporosis - home Oscal 500mg PO daily - home Alendronate sodium 70 mg po daily - HOLD home Ergocalciferol until f/u VitD IVF: NS @ 100 mL/hr Code status: full DVT ppx: home Plavix 75mg PO daily, heparin 5000 u SQ q12 hrs, SCDs GI ppx: Protonix 20mg po daily, home Colace 100mg po daily <Denilson España - Last Filed: 12/30/17 22:21> Objective - Vital Signs/Intake and Output Vital Signs (last 24 hours): Temp Pulse Resp BP Pulse Ox 98.1 F 83 18 95/57 L 95 12/30/17 15:00 12/30/17 20:28 12/30/17 15:00 12/30/17 15:00 12/30/17 15:00 Intake and Output: 12/30/17 12/31/17 18:59 06:59 Intake Total 470 Output Total 550 Balance -80 - Medications Medications: Current Medications Acetaminophen (Tylenol 325mg Tab) 650 mg PO Q6 PRN PRN Reason: Headache Last Admin: 12/30/17 17:56 Dose: 650 mg Albuterol/Ipratropium (Duoneb 3 Mg/0.5 Mg (3 Ml) Ud) 3 ml INH RQ4 [facility] Last Admin: 12/30/17 20:26 Dose: 3 ml Bisoprolol Fumarate (Zebeta) 5 mg PO DAILY [facility] Last Admin: 12/28/17 10:09 Dose: 5 mg Calcium Carbonate (Oscal) 500 mg PO DAILY [facility] Last Admin: 12/30/17 10:44 Dose: 500 mg Clopidogrel Bisulfate (Plavix) 75 mg PO DAILY [facility] Last Admin: 12/30/17 10:44 Dose: 75 mg Docusate Sodium (Colace) 100 mg PO DAILY [facility] Last Admin: 12/30/17 10:44 Dose: 100 mg Fenofibrate (Tricor) 145 mg PO DAILY [facility] Last Admin: 12/30/17 10:46 Dose: 145 mg Heparin Sodium (Porcine) (Heparin) 5,000 units SC Q12 [facility] Last Admin: 12/30/17 21:11 Dose: 5,000 units Hydroxychloroquine Sulfate (Plaquenil) 200 mg PO BID [facility] PRN Reason: Protocol Last Admin: 12/30/17 17:44 Dose: 200 mg Ceftriaxone Sodium 1 gm/ (Sodium Chloride) 100 mls @ 100 mls/hr IVPB Q12H [facility] PRN Reason: Protocol Last Admin: 12/30/17 21:11 Dose: 100 mls/hr Azithromycin 500 mg/ Sodium (Chloride) 250 mls @ 250 mls/hr IVPB DAILY [facility] PRN Reason: Protocol Last Admin: 12/30/17 13:23 Dose: 250 mls/hr Methylprednisolone (Solu-Medrol) 40 mg IV Q6 [facility] Last Admin: 12/30/17 17:44 Dose: 40 mg Montelukast Sodium (Singulair) 10 mg PO HS [facility] Last Admin: 12/30/17 21:11 Dose: 10 mg Pantoprazole Sodium (Protonix Ec Tab) 20 mg PO DAILY [facility] Last Admin: 12/30/17 10:44 Dose: 20 mg Rosuvastatin Calcium (Crestor) 10 mg PO HS [facility] Last Admin: 12/30/17 21:11 Dose: 10 mg Tamsulosin HCl (Flomax) 0.4 mg PO DAILY [facility] Last Admin: 12/30/17 10:44 Dose: 0.4 mg - Labs Labs: 12/30/17 05:35 12/30/17 05:35 PT 10.0 SECONDS (9.7-12.2) 12/27/17 20:49 INR 0.9 12/27/17 20:49 APTT 40 SECONDS (21-34) H 12/27/17 20:49 Attending/Attestation - Attestation I have personally seen and examined this patient.: Yes I have fully participated in the care of the patient.: Yes I have reviewed all pertinent clinical information, including history, physical exam and plan: Yes Notes (Text): Covering Dr Larson Seen and examined this afternoon. On BIPAP,feeling little better. Appreciate the care provided 1,COPD exacerbation 2.Bilateral lower lobe pneumonia 3.Pancytopenia,thrombocytopenia 4.RA 5.BRISA 6.Pancreatic mass Assessment and the plan discussed with the resident.I agree with the documentation
--- NOTE | 2017-12-30 08:19 | VASCLAB ---
Date of service: 12/28/2017 PROCEDURE: Lower Extremity Venous Duplex Exam. HISTORY: sob B/L LE Edema PRIORS: None. TECHNIQUE: Bilateral common femoral, femoral, popliteal and posterior tibial, peroneal and great saphenous veins were evaluated. Flow was assessed with color Doppler, compressibility, assessment of phasic flow and augmentation response. Report prepared by Brandyn Glass, RVT FINDINGS: RIGHT: 1. Common Femoral Vein: 1.1. Compressibility - Fully compressible: Thrombus - None : Flow - Phasic: Augmentation -Normal: Reflux - . 2. Femoral Vein: 2.1. Compressibility - Fully compressible: Thrombus - None : Flow - Phasic: Augmentation -Normal: Reflux - . 3. Popliteal Vein: 3.1. Compressibility - Fully compressible: Thrombus - None : Flow - Phasic: Augmentation -Normal: Reflux - . 4. Posterior Tibial Vein: 4.1. Compressibility - Fully compressible: Thrombus - None: Flow - : Augmentation -: Reflux - . 5. Peroneal Vein: 5.1. Compressibility - Fully compressible: Thrombus - None: Flow - : Augmentation -: Reflux - . 6. Great Saphenous Vein: 6.1. Compressibility - Fully compressible: Thrombus - None: Flow - Phasic: Augmentation - : Reflux - . LEFT: 1. Common Femoral Vein: 1.1. Compressibility - Fully compressible: Thrombus - None: Flow - Phasic: Augmentation -Normal: Reflux - . 2. Femoral Vein: 2.1. Compressibility - Fully compressible: Thrombus - None: Flow - Phasic: Augmentation -Normal: Reflux - . 3. Popliteal Vein: 3.1. Compressibility - Fully compressible: Thrombus - None : Flow - Phasic: Augmentation -Normal: Reflux - . 4. Posterior Tibial Vein: 4.1. Compressibility - Fully compressible: Thrombus - None: Flow - : Augmentation -: Reflux - . 5. Peroneal Vein: 5.1. Compressibility - Fully compressible: Thrombus - None: Flow - : Augmentation -: Reflux - . 6. Great Saphenous Vein: 6.1. Compressibility - Fully compressible: Thrombus - None: Flow - Previously harvested: Augmentation - : Reflux - . OTHER FINDINGS: Right: None significant. Left: None significant. IMPRESSION: Right: No evidence of deep or superficial vein thrombosis of the right lower extremity. Left: No evidence of deep or superficial vein thrombosis of the left lower extremity.
[2017-12-30] MEDS: Pantoprazole 20 mg EC Tab PO SCH (10:44)
--- NOTE | 2017-12-30 10:45 | CT ---
Date of service: 12/28/2017 PROCEDURE: CT Chest with contrast (Pulmonary Angiogram) HISTORY: sob COMPARISON: None available. TECHNIQUE: Axial computed tomography images were obtained of the chest in the pulmonary arterial phase of enhancement. Coronal and sagittal reformatted images were created and reviewed. Intravenous contrast dose: 100 mL Visipaque 320 Radiation dose: Total exam DLP = 401.05 mGy-cm. This CT exam was performed using one or more of the following dose reduction techniques: Automated exposure control, adjustment of the mA and/or kV according to patient size, and/or use of iterative reconstruction technique. FINDINGS: PULMONARY ARTERIES: Technically limited examination due to failure to administer the full volume of intravenous contrast material. Cannot evaluate for pulmonary embolism beyond the main and lobar pulmonary arteries. Segmental and subsegmental branches cannot be adequately evaluated. No evidence of large central pulmonary embolism. Please note that there is dilatation of the main pulmonary artery to a diameter of 3.9 cm. This may correlate with pulmonary arterial hypertension. AORTA: No acute findings. No thoracic aortic aneurysm. LUNGS: Chronic coarse interstitial infiltrates of the lung bases with erin consolidation, chronic, in the right lower lobe. Air bronchograms are evident. Air bronchograms are also evident in the right middle lobe, again unchanged. Linear scar/ atelectasis in left lower lobe and in lingula. No pulmonary mass. PLEURAL SPACES: Unremarkable. No effusion or pneumothorax. HEART: Mild cardiomegaly. Coronary arterial calcification. LYMPH NODES: No lymphadenopathy. BONES, CHEST WALL: Old T5 and T7 vertebral compression fractures. Posterior fixation with pedicle screws and vertical rods at T3, T4, T6 and T7. No acute fracture. OTHER FINDINGS: Unremarkable. IMPRESSION: Technically limited examination. No evidence of large central pulmonary embolus in the main and lobar pulmonary arteries. Chronic consolidation in the right lower and right middle lobes. Additional minor findings as above. The preliminary findings for this examination were reported by [facility] at 5:32 a.m. on 12/28/2017. There is concurrence of this report with the preliminary findings.
--- NOTE | 2017-12-30 13:03 | CT ---
Date of service: 12/28/2017 PROCEDURE: CT Abdomen and Pelvis with contrast HISTORY: h/o pancreatic tumor, weight loss COMPARISON: 08/30/2017 TECHNIQUE: Contrast dose: 100 mL Visipaque 320 Radiation dose: Total exam DLP = 466.96 mGy-cm. This CT exam was performed using one or more of the following dose reduction techniques: Automated exposure control, adjustment of the mA and/or kV according to patient size, and/or use of iterative reconstruction technique. FINDINGS: LOWER THORAX: Right lower lobe and right middle lobe consolidation. Linear scar/ atelectasis in lingula and left lower lobe. Cardiomegaly. Coronary arterial calcification. Bilateral gynecomastia. LIVER: Unremarkable. No gross lesion or ductal dilatation. GALLBLADDER AND BILE DUCTS: Unremarkable. PANCREAS: 1.7 cm rounded isodense/ minimally hyperdense mass at distal pancreatic tail, unchanged from 08/30/2017. Please note that this may represent a small splenule immediately adjacent to the pancreatic tail but the distinction is not reliably made on the basis of this examination. SPLEEN: Unremarkable. ADRENALS: Unremarkable. No mass. KIDNEYS AND URETERS: Multiple stable bilateral renal cysts. Largest right renal cyst is exophytic lower pole measuring 1.5 cm. Largest left renal cyst is a 2 cm left lower pole cortical cyst protruding into the renal pelvis. No new renal mass. No calculus or hydronephrosis appreciated. VASCULATURE: Unremarkable. No aortic aneurysm. BOWEL: Unremarkable. No obstruction. No gross mural thickening. APPENDIX: Normal appendix. PERITONEUM: No ascites or pneumoperitoneum. Bilateral inguinal hernia containing mesenteric fat. LYMPH NODES: Unremarkable. No enlarged lymph nodes. BLADDER: Small diverticula at right bladder base. These were Saint contains some calcification on prior examination. REPRODUCTIVE: Unremarkable prostate BONES: Central compression deformity versus Schmorl's nodes of the superior and inferior vertebral endplate at L3. Mild anterior wedge compression deformity of L1. No change from prior. No acute fracture. OTHER FINDINGS: None. IMPRESSION: Stable rounded pancreatic tail mass, 1.7 cm. Pancreatic mass versus splenule abutting the pancreatic tail. Left lower lobe and lingular consolidation. Cardiomegaly with coronary arterial calcification. Bilateral gynecomastia. Additional minor findings as above. The preliminary findings for this examination were reported by [email or web address] at 5:38 a.m. on 12/28/2017. There is concurrence of this report with the preliminary findings.
--- NOTE | 2017-12-30 13:10 | CP.PCM.CON ---
History of Present Illness - History of Present Illness History of Present Illness: reason for consultation: shortness of breath 72 year old Georgian speaking male PMH Chronic Obstructive Pulmonary Disease on 3L home oxygen, coronary artery disease s/p CABG and stents, hypertension, pancreatic tumor comes to [facility] today complaining of worsening shortness of breath x2 days. He is bedridden and can only ambulate with a walker , but he has not gotten up out of bed these last two days. His O2 saturation read as low as 83% using a home oximeter. patient found to be pancytopenic most likely secondary to Plaquenil. Patient on BiPAP and has dyspnea even on talking. PMH: COPD on 3L home O2, CAD s/p CABG and stents, HTN, pancreatic tumor Home Meds: Tricor 145mg po daily, Zebeta 5mg po daily, Flomax 0.4mg po daily, Prednisone 5mg po bid, Singulair 10mg po HS, Plaquenil 200mg po bid, Lasix 20mg po daily, Ergocalciferol 56368RM po q7d, Colace 100mg po daily, Plavix 75mg po daily, Oscal 500mg po daily, Lipitor 20mg po HS, Alendronate Sodium 70mg po Allergies: NKDA PSxH: CABG 1999, left hip ORIF 2006, open heart 2010, bilateral cataract 2011, thoracic reconstruction 2012, cervical spine 2014 SocHx: Denies alcohol, illicit drugs. Ex-smoker, quit 2013. Lives at home with and son. FamHx: Mother and Father both s/p [place], ages unknown. Brother: stroke - 85 years old Daughter: Xochitl [phone], Son: Karson Review of Systems - Review of Systems All systems: reviewed and no additional remarkable complaints except (shortness of breath) Past Patient History - Infectious Disease Hx of Infectious Diseases: None - Past Medical History & Family History Past Medical History?: Yes - Past Social History Smoking Status: Former Smoker Alcohol: None Drugs: Denies - CARDIAC Hx Congestive Heart Failure: No Hx Hypercholesterolemia: Yes Hx Hypertension: Yes - PULMONARY Hx Asthma: Yes Hx Chronic Obstructive Pulmonary Disease (COPD): Yes Hx Sleep Apnea: Yes - NEUROLOGICAL Hx Alzheimer's Disease: Yes Hx Seizures: No - HEENT Hx HEENT Problems: No - RENAL Hx Chronic Kidney Disease: No - ENDOCRINE/METABOLIC Hx Hypothyroidism: No - HEMATOLOGICAL/ONCOLOGICAL Hx Human Immunodeficiency Virus (HIV): No - INTEGUMENTARY Hx Dermatological Problems: No - MUSCULOSKELETAL/RHEUMATOLOGICAL Hx Arthritis: Yes (BACK) Hx Fractures: Yes Hx Rheumatoid Arthritis: No - GASTROINTESTINAL Hx Gastrointestinal Disorders: No - GENITOURINARY/GYNECOLOGICAL Hx Sexually Transmitted Disorders: No - PSYCHIATRIC Hx Substance Use: No - SURGICAL HISTORY Hx Coronary Artery Bypass Graft: Yes (1999) Hx Coronary Stent: Yes - ANESTHESIA Hx Anesthesia: Yes Hx Anesthesia Reactions: No Hx Malignant Hyperthermia: No Meds Allergies/Adverse Reactions: Allergies Allergy/AdvReac Type Severity Reaction Status Date / Time Penicillins Allergy Unknown RASH Verified 12/27/17 20:38 - Medications Medications: Current Medications Acetaminophen (Tylenol 325mg Tab) 650 mg PO Q6 PRN PRN Reason: Headache Last Admin: 12/29/17 16:32 Dose: 650 mg Albuterol/Ipratropium (Duoneb 3 Mg/0.5 Mg (3 Ml) Ud) 3 ml INH RQ4 [facility] Last Admin: 12/30/17 03:24 Dose: 3 ml Bisoprolol Fumarate (Zebeta) 5 mg PO DAILY [facility] Last Admin: 12/28/17 10:09 Dose: 5 mg Calcium Carbonate (Oscal) 500 mg PO DAILY [facility] Last Admin: 12/30/17 10:44 Dose: 500 mg Clopidogrel Bisulfate (Plavix) 75 mg PO DAILY [facility] Last Admin: 12/30/17 10:44 Dose: 75 mg Docusate Sodium (Colace) 100 mg PO DAILY [facility] Last Admin: 12/30/17 10:44 Dose: 100 mg Fenofibrate (Tricor) 145 mg PO DAILY [facility] Last Admin: 12/30/17 10:46 Dose: 145 mg Heparin Sodium (Porcine) (Heparin) 5,000 units SC Q12 [facility] Last Admin: 12/30/17 10:44 Dose: 5,000 units Hydroxychloroquine Sulfate (Plaquenil) 200 mg PO BID [facility] PRN Reason: Protocol Last Admin: 12/30/17 10:46 Dose: 200 mg Ceftriaxone Sodium 1 gm/ (Sodium Chloride) 100 mls @ 100 mls/hr IVPB Q12H [facility] PRN Reason: Protocol Last Admin: 12/30/17 10:43 Dose: 100 mls/hr Azithromycin 500 mg/ Sodium (Chloride) 250 mls @ 250 mls/hr IVPB DAILY [facility] PRN Reason: Protocol Last Admin: 12/29/17 09:39 Dose: 250 mls/hr Montelukast Sodium (Singulair) 10 mg PO HS [facility] Last Admin: 12/29/17 21:48 Dose: 10 mg Pantoprazole Sodium (Protonix Ec Tab) 20 mg PO DAILY [facility] Last Admin: 12/30/17 10:44 Dose: 20 mg Prednisone (Prednisone Tab) 5 mg PO BID [facility] Last Admin: 12/30/17 10:44 Dose: 5 mg Rosuvastatin Calcium (Crestor) 10 mg PO HS [facility] Last Admin: 12/29/17 21:48 Dose: 10 mg Tamsulosin HCl (Flomax) 0.4 mg PO DAILY [facility] Last Admin: 12/30/17 10:44 Dose: 0.4 mg Physical Exam - Head Exam Head Exam: ATRAUMATIC, NORMOCEPHALIC - Eye Exam Eye Exam: Normal appearance - ENT Exam ENT Exam: Mucous Membranes Moist - Neck Exam Neck exam: Positive for: Normal Inspection - Respiratory Exam Respiratory Exam: Decreased Breath Sounds - Cardiovascular Exam Cardiovascular Exam: REGULAR RHYTHM - GI/Abdominal Exam GI & Abdominal Exam: Normal Bowel Sounds Results - Vital Signs Recent Vital Signs: Last Vital Signs Temp 97.4 F L 12/30/17 07:00 Pulse 76 12/30/17 07:25 Resp 18 12/30/17 07:00 BP 119/68 12/30/17 07:00 Pulse Ox 100 12/30/17 07:00 - Labs Result Diagrams: 12/30/17 05:35 12/30/17 05:35 Labs: Laboratory Results - last 24 hr 12/30/17 12/30/17 12/30/17 05:35 05:35 06:27 WBC 1.3 L* RBC 3.07 L Hgb 10.6 L Hct 33.3 L MCV 108.3 H MCH 34.4 H MCHC 31.8 L RDW 18.3 H Plt Count 79 L MPV 9.7 Neut % (Auto) 43.3 L Lymph % (Auto) 44.3 H Emery % (Auto) 11.1 H Eos % (Auto) 0.0 Baso % (Auto) 1.3 Neut # (Auto) 0.6 L Lymph # (Auto) 0.6 L Emery # (Auto) 0.1 Eos # (Auto) 0.0 Baso # (Auto) 0.0 Differential Comment Smear Path Review Sodium 140 Potassium 4.2 Chloride 100 Carbon Dioxide 36 H Anion Gap 8 L BUN 15 Creatinine 0.7 L Est GFR ( Amer) > 60 Est GFR (Non-Af Amer) > 60 POC Glucose (mg/dL) 118 H Random Glucose 82 Calcium 8.3 L Total Bilirubin 0.4 AST 41 ALT 38 Alkaline Phosphatase 24 L Total Protein 5.0 L Albumin 2.5 L Globulin 2.5 Albumin/Globulin Ratio 1.0 12/30/17 11:36 WBC RBC Hgb Hct MCV MCH MCHC RDW Plt Count MPV Neut % (Auto) Lymph % (Auto) Emery % (Auto) Eos % (Auto) Baso % (Auto) Neut # (Auto) Lymph # (Auto) Emery # (Auto) Eos # (Auto) Baso # (Auto) Differential Comment Smear Path Review Sodium Potassium Chloride Carbon Dioxide Anion Gap BUN Creatinine Est GFR ( Amer) Est GFR (Non-Af Amer) POC Glucose (mg/dL) 74 Random Glucose Calcium Total Bilirubin AST ALT Alkaline Phosphatase Total Protein Albumin Globulin Albumin/Globulin Ratio Assessment & Plan (1) Hypercapnic respiratory failure Assessment and Plan: secondary to COPD and pneumonia/ patient noncompliant with medicine Continue BiPAP IV steroids Nebulizer treatment Followup ABG IV antibiotics Status: Acute Priority: High (2) COPD exacerbation Status: Acute Priority: High (3) Pancytopenia Status: Acute (4) Sleep apnea, obstructive Status: Chronic Priority: High
[2017-12-30] MEDS: Azithromycin 500 MG in Sodium Chloride 0.9% 250 ML IVPB SCH (13:23)
[2017-12-30] MEDS: MethylPREDNISolone 40 mg Vial IV SCH ×2 (17:44→23:59)
[2017-12-31] MEDS: Albuterol-Ipratrop 3 mg / 0.5 (3 ml) UD INH SCH ×7 (00:23→23:42)
[2017-12-31] MEDS: MethylPREDNISolone 40 mg Vial IV SCH ×3 (05:55→18:05)
[2017-12-31 08:24] LABS: BASO % 0.4 % (0.0-2.0); HEMOGLOBIN 12.2 g/dL (12.0-18.0); LYMPH # 0.3 K/uL (1.0-4.3); MEAN CELL VOLUME 107.3 fL (80.0-94.0); MEAN CORPUSCULAR HEMOGLOBIN 34.2 pg (27.0-31.0); MEAN CORPUSCULAR HGB CONC 31.9 g/dL (33.0-37.0); MEAN PLATELET VOLUME 10.6 fL (7.2-11.7); MONO % 4.7 % (0.0-10.0); NEUT # 0.7 K/uL (1.8-7.0); NEUT % 65.9 % (50.0-75.0); NRBC % 0.7 % (0.0-2.0); RBC 3.58 Mil/uL (4.40-5.90); RED CELL DISTRIBUTION WIDTH 17.5 % (11.5-14.5)
[2017-12-31 08:26] LABS: WHITE BLOOD COUNT 1.1 K/uL (4.8-10.8)
[2017-12-31 08:42] LABS: ALB/GLOB RATIO 1.2 (1.0-2.1); ALT/SGPT 39 U/L (21-72); AST/SGOT 47 U/L (17-59); BLOOD UREA NITROGEN 16 mg/dL (9-20); CALCIUM 8.8 mg/dl (8.6-10.4); GFR AFRICAN-AMERICAN > 60; GFR NON-AFRICAN AMERICAN > 60
[2017-12-31] MEDS: Pantoprazole 20 mg EC Tab PO SCH (09:59)
[2017-12-31] MEDS: Azithromycin 500 MG in Sodium Chloride 0.9% 250 ML IVPB SCH (10:01)
[2017-12-31] MEDS ORDERED: Nitroglycerin 2% Ointment Foilpak UD TOP STA (10:30)
--- NOTE | 2017-12-31 10:41 | CP.PCM.PN ---
Subjective - Date & Time of Evaluation Date of Evaluation: 12/31/17 Time of Evaluation: 10:00 - Subjective Subjective: Nurse paged House MD pager for Dr. Larson's patient who complains of chest pain. Patient was seen and examined at bedside. Pt experienced 10/10 chest pain as per floor nurse. EKG and ARNOLD ordered stat. AND DRYING SUPERVISOR COOKING CASING, Leia, was also at bedside and spoke with Dr. Larson. AND DRYING SUPERVISOR COOKING CASING ordered cardiology consult. Will follow up EKG and ARNOLD. Pt was stable on ventilation laying comfortably with BI-PAP in place. Vitals were : Bp 116/70, HR 90, O2 sat 97%, Examination was performed-LCTA, Regular Rythm appreciated. Pt reported cp had improved. Dr. Larson made aware of events. Objective - Vital Signs/Intake and Output Vital Signs (last 24 hours): Temp Pulse Resp BP Pulse Ox 97.8 F 97 H 18 116/74 99 12/31/17 07:00 12/31/17 09:57 12/31/17 07:00 12/31/17 09:57 12/31/17 07:00 Intake and Output: 12/31/17 12/31/17 06:59 18:59 Intake Total 420 Output Total 400 Balance 20 - Medications Medications: Current Medications Acetaminophen (Tylenol 325mg Tab) 650 mg PO Q6 PRN PRN Reason: Headache Last Admin: 12/30/17 17:56 Dose: 650 mg Albuterol/Ipratropium (Duoneb 3 Mg/0.5 Mg (3 Ml) Ud) 3 ml INH RQ4 [facility] Last Admin: 12/31/17 07:37 Dose: 3 ml Bisoprolol Fumarate (Zebeta) 5 mg PO DAILY [facility] Last Admin: 12/31/17 10:00 Dose: 5 mg Calcium Carbonate (Oscal) 500 mg PO DAILY [facility] Last Admin: 12/31/17 09:59 Dose: 500 mg Clopidogrel Bisulfate (Plavix) 75 mg PO DAILY [facility] Last Admin: 12/31/17 09:59 Dose: 75 mg Docusate Sodium (Colace) 100 mg PO DAILY [facility] Last Admin: 12/31/17 09:59 Dose: 100 mg Fenofibrate (Tricor) 145 mg PO DAILY [facility] Last Admin: 12/31/17 09:59 Dose: 145 mg Hydroxychloroquine Sulfate (Plaquenil) 200 mg PO BID [facility] PRN Reason: Protocol Last Admin: 12/31/17 10:00 Dose: 200 mg Ceftriaxone Sodium 1 gm/ (Sodium Chloride) 100 mls @ 100 mls/hr IVPB Q12H [facility] PRN Reason: Protocol Last Admin: 12/31/17 08:31 Dose: 100 mls/hr Azithromycin 500 mg/ Sodium (Chloride) 250 mls @ 250 mls/hr IVPB DAILY [facility] PRN Reason: Protocol Last Admin: 12/31/17 10:01 Dose: 250 mls/hr Methylprednisolone (Solu-Medrol) 40 mg IV Q6 [facility] Last Admin: 12/31/17 05:55 Dose: 40 mg Montelukast Sodium (Singulair) 10 mg PO HS [facility] Last Admin: 12/30/17 21:11 Dose: 10 mg Pantoprazole Sodium (Protonix Ec Tab) 20 mg PO DAILY [facility] Last Admin: 12/31/17 09:59 Dose: 20 mg Rosuvastatin Calcium (Crestor) 10 mg PO HS [facility] Last Admin: 12/30/17 21:11 Dose: 10 mg Tamsulosin HCl (Flomax) 0.4 mg PO DAILY [facility] Last Admin: 12/31/17 09:59 Dose: 0.4 mg - Labs Labs: 12/31/17 08:17 12/31/17 08:17 PT 10.0 SECONDS (9.7-12.2) 12/27/17 20:49 INR 0.9 12/27/17 20:49 APTT 40 SECONDS (21-34) H 12/27/17 20:49
[2017-12-31 11:01] LABS: CK-MB 13.7 ng/mL (0.0-3.38); TROPONIN I 0.016 ng/mL (0.00-0.120)
--- NOTE | 2017-12-31 15:02 | CARD ---
APPROVED REPORT Date of service: 12/27/2017 EKG Measurement Heart [id number] <Conclusion> Normal sinus rhythm Right bundle branch block, plus right ventricular hypertrophy Moderate voltage criteria for LVH, may be normal variant Possible Lateral infarct, age undetermined Inferior infarct, age undetermined Abnormal ECG
--- NOTE | 2017-12-31 16:28 | CP.PCM.PN ---
Subjective - Date & Time of Evaluation Date of Evaluation: 12/31/17 Time of Evaluation: 13:00 - Subjective Subjective: patient seen and examined Still complaining of shortness of breath and patient remained on BiPAP He had chest pain, an EKG showed not much change Patient states pain is mostly in the left axillary area Afebrile Cough productive of clear phlegm Objective - Vital Signs/Intake and Output Vital Signs (last 24 hours): Temp Pulse Resp BP Pulse Ox 97.8 F 65 18 106/62 99 12/31/17 07:00 12/31/17 15:41 12/31/17 07:00 12/31/17 11:18 12/31/17 07:00 Intake and Output: 12/31/17 12/31/17 06:59 18:59 Intake Total 420 830 Output Total 400 450 Balance 20 380 - Medications Medications: Current Medications Acetaminophen (Tylenol 325mg Tab) 650 mg PO Q6 PRN PRN Reason: Headache Last Admin: 12/30/17 17:56 Dose: 650 mg Albuterol/Ipratropium (Duoneb 3 Mg/0.5 Mg (3 Ml) Ud) 3 ml INH RQ4 [facility] Last Admin: 12/31/17 15:39 Dose: 3 ml Bisoprolol Fumarate (Zebeta) 5 mg PO DAILY [facility] Last Admin: 12/31/17 10:00 Dose: 5 mg Calcium Carbonate (Oscal) 500 mg PO DAILY [facility] Last Admin: 12/31/17 09:59 Dose: 500 mg Clopidogrel Bisulfate (Plavix) 75 mg PO DAILY [facility] Last Admin: 12/31/17 09:59 Dose: 75 mg Docusate Sodium (Colace) 100 mg PO DAILY [facility] Last Admin: 12/31/17 09:59 Dose: 100 mg Fenofibrate (Tricor) 145 mg PO DAILY [facility] Last Admin: 12/31/17 09:59 Dose: 145 mg Ceftriaxone Sodium 1 gm/ (Sodium Chloride) 100 mls @ 100 mls/hr IVPB Q12H [facility] PRN Reason: Protocol Last Admin: 12/31/17 08:31 Dose: 100 mls/hr Azithromycin 500 mg/ Sodium (Chloride) 250 mls @ 250 mls/hr IVPB DAILY [facility] PRN Reason: Protocol Last Admin: 12/31/17 10:01 Dose: 250 mls/hr Methylprednisolone (Solu-Medrol) 40 mg IV Q6 [facility] Last Admin: 12/31/17 11:19 Dose: 40 mg Montelukast Sodium (Singulair) 10 mg PO HS [facility] Last Admin: 12/30/17 21:11 Dose: 10 mg Pantoprazole Sodium (Protonix Ec Tab) 20 mg PO DAILY [facility] Last Admin: 12/31/17 09:59 Dose: 20 mg Rosuvastatin Calcium (Crestor) 10 mg PO HS [facility] Last Admin: 12/30/17 21:11 Dose: 10 mg Tamsulosin HCl (Flomax) 0.4 mg PO DAILY [facility] Last Admin: 12/31/17 09:59 Dose: 0.4 mg - Labs Labs: 12/31/17 08:17 12/31/17 08:17 PT 10.0 SECONDS (9.7-12.2) 12/27/17 20:49 INR 0.9 12/27/17 20:49 APTT 40 SECONDS (21-34) H 12/27/17 20:49 - Head Exam Head Exam: ATRAUMATIC, NORMOCEPHALIC - ENT Exam ENT Exam: Mucous Membranes Moist - Neck Exam Neck Exam: Normal Inspection - Respiratory Exam Respiratory Exam: Decreased Breath Sounds - Cardiovascular Exam Cardiovascular Exam: REGULAR RHYTHM Assessment and Plan (1) Hypercapnic respiratory failure Assessment & Plan: BiPAP Nebulizer treatment and steroids Continue antibiotics Cardiology evaluation Status: Acute (2) COPD exacerbation Status: Acute (3) Pancytopenia Status: Acute (4) Sleep apnea, obstructive Status: Chronic
--- NOTE | 2017-12-31 18:51 | CP.PCM.PN ---
Subjective - Date & Time of Evaluation Date of Evaluation: 12/30/17 Time of Evaluation: 20:00 - Subjective Subjective: Has some shortness of breath Objective - Vital Signs/Intake and Output Vital Signs (last 24 hours): Temp Pulse Resp BP Pulse Ox 97.6 F 65 18 108/74 96 12/31/17 15:13 12/31/17 15:41 12/31/17 15:13 12/31/17 15:13 12/31/17 15:13 Intake and Output: 12/31/17 12/31/17 06:59 18:59 Intake Total 420 830 Output Total 400 450 Balance 20 380 - Medications Medications: Current Medications Acetaminophen (Tylenol 325mg Tab) 650 mg PO Q6 PRN PRN Reason: Headache Last Admin: 12/31/17 18:40 Dose: 650 mg Albuterol/Ipratropium (Duoneb 3 Mg/0.5 Mg (3 Ml) Ud) 3 ml INH RQ4 [facility] Last Admin: 12/31/17 15:39 Dose: 3 ml Bisoprolol Fumarate (Zebeta) 5 mg PO DAILY [facility] Last Admin: 12/31/17 10:00 Dose: 5 mg Calcium Carbonate (Oscal) 500 mg PO DAILY [facility] Last Admin: 12/31/17 09:59 Dose: 500 mg Clopidogrel Bisulfate (Plavix) 75 mg PO DAILY [facility] Last Admin: 12/31/17 09:59 Dose: 75 mg Docusate Sodium (Colace) 100 mg PO DAILY [facility] Last Admin: 12/31/17 09:59 Dose: 100 mg Fenofibrate (Tricor) 145 mg PO DAILY [facility] Last Admin: 12/31/17 09:59 Dose: 145 mg Ceftriaxone Sodium 1 gm/ (Sodium Chloride) 100 mls @ 100 mls/hr IVPB Q12H [facility] PRN Reason: Protocol Last Admin: 12/31/17 08:31 Dose: 100 mls/hr Azithromycin 500 mg/ Sodium (Chloride) 250 mls @ 250 mls/hr IVPB DAILY [facility] PRN Reason: Protocol Last Admin: 12/31/17 10:01 Dose: 250 mls/hr Methylprednisolone (Solu-Medrol) 40 mg IV Q6 [facility] Last Admin: 12/31/17 18:05 Dose: 40 mg Montelukast Sodium (Singulair) 10 mg PO HS [facility] Last Admin: 12/30/17 21:11 Dose: 10 mg Pantoprazole Sodium (Protonix Ec Tab) 20 mg PO DAILY [facility] Last Admin: 12/31/17 09:59 Dose: 20 mg Rosuvastatin Calcium (Crestor) 10 mg PO HS [facility] Last Admin: 12/30/17 21:11 Dose: 10 mg Tamsulosin HCl (Flomax) 0.4 mg PO DAILY [facility] Last Admin: 12/31/17 09:59 Dose: 0.4 mg - Labs Labs: 12/31/17 08:17 12/31/17 08:17 PT 10.0 SECONDS (9.7-12.2) 12/27/17 20:49 INR 0.9 12/27/17 20:49 APTT 40 SECONDS (21-34) H 12/27/17 20:49 - Head Exam Head Exam: ATRAUMATIC - Eye Exam Eye Exam: Normal appearance - ENT Exam ENT Exam: Mucous Membranes Dry - Respiratory Exam Respiratory Exam: NORMAL BREATHING PATTERN - Cardiovascular Exam Cardiovascular Exam: +S1, +S2 - GI/Abdominal Exam GI & Abdominal Exam: Normal Bowel Sounds Assessment and Plan (1) Pancytopenia Assessment & Plan: likely exacerbated by acute illness consider holding plaquenil as can cause cytopenias f/u iron, b12, folate stores if plt count cont to drop, will need to hold heparin and rule out HIT Status: Acute (2) Pancreatic mass Assessment & Plan: CT scan suggests stable pancreatic lesion vs splenule CA 19-9 normal f/u chromogranin A level Status: Acute
--- NOTE | 2017-12-31 18:54 | CP.PCM.PN ---
Subjective - Date & Time of Evaluation Date of Evaluation: 12/31/17 Time of Evaluation: 17:00 - Subjective Subjective: Has some shortness of breath Objective - Vital Signs/Intake and Output Vital Signs (last 24 hours): Temp Pulse Resp BP Pulse Ox 97.6 F 65 18 108/74 96 12/31/17 15:13 12/31/17 15:41 12/31/17 15:13 12/31/17 15:13 12/31/17 15:13 Intake and Output: 12/31/17 12/31/17 06:59 18:59 Intake Total 420 830 Output Total 400 450 Balance 20 380 - Medications Medications: Current Medications Acetaminophen (Tylenol 325mg Tab) 650 mg PO Q6 PRN PRN Reason: Headache Last Admin: 12/31/17 18:40 Dose: 650 mg Albuterol/Ipratropium (Duoneb 3 Mg/0.5 Mg (3 Ml) Ud) 3 ml INH RQ4 [facility] Last Admin: 12/31/17 15:39 Dose: 3 ml Bisoprolol Fumarate (Zebeta) 5 mg PO DAILY [facility] Last Admin: 12/31/17 10:00 Dose: 5 mg Calcium Carbonate (Oscal) 500 mg PO DAILY [facility] Last Admin: 12/31/17 09:59 Dose: 500 mg Clopidogrel Bisulfate (Plavix) 75 mg PO DAILY [facility] Last Admin: 12/31/17 09:59 Dose: 75 mg Docusate Sodium (Colace) 100 mg PO DAILY [facility] Last Admin: 12/31/17 09:59 Dose: 100 mg Fenofibrate (Tricor) 145 mg PO DAILY [facility] Last Admin: 12/31/17 09:59 Dose: 145 mg Ceftriaxone Sodium 1 gm/ (Sodium Chloride) 100 mls @ 100 mls/hr IVPB Q12H [facility] PRN Reason: Protocol Last Admin: 12/31/17 08:31 Dose: 100 mls/hr Azithromycin 500 mg/ Sodium (Chloride) 250 mls @ 250 mls/hr IVPB DAILY [facility] PRN Reason: Protocol Last Admin: 12/31/17 10:01 Dose: 250 mls/hr Methylprednisolone (Solu-Medrol) 40 mg IV Q6 [facility] Last Admin: 12/31/17 18:05 Dose: 40 mg Montelukast Sodium (Singulair) 10 mg PO HS [facility] Last Admin: 12/30/17 21:11 Dose: 10 mg Pantoprazole Sodium (Protonix Ec Tab) 20 mg PO DAILY [facility] Last Admin: 12/31/17 09:59 Dose: 20 mg Rosuvastatin Calcium (Crestor) 10 mg PO HS [facility] Last Admin: 12/30/17 21:11 Dose: 10 mg Tamsulosin HCl (Flomax) 0.4 mg PO DAILY [facility] Last Admin: 12/31/17 09:59 Dose: 0.4 mg - Labs Labs: 12/31/17 08:17 12/31/17 08:17 PT 10.0 SECONDS (9.7-12.2) 12/27/17 20:49 INR 0.9 12/27/17 20:49 APTT 40 SECONDS (21-34) H 12/27/17 20:49 - Head Exam Head Exam: ATRAUMATIC - ENT Exam ENT Exam: Mucous Membranes Dry - Respiratory Exam Respiratory Exam: NORMAL BREATHING PATTERN - Cardiovascular Exam Cardiovascular Exam: +S1, +S2 - GI/Abdominal Exam GI & Abdominal Exam: Normal Bowel Sounds Assessment and Plan (1) Pancytopenia Assessment & Plan: likely exacerbated by acute illness plaquenil and heparin held today f/u iron, b12, folate stores Status: Acute (2) Pancreatic mass Assessment & Plan: CT abdomen shows stable findings CA 19-9 normal f/u add chromogranin A Status: Acute
[2018-01-01] MEDS: MethylPREDNISolone 40 mg Vial IV SCH ×4 (00:12→18:46)
[2018-01-01] MEDS: Albuterol-Ipratrop 3 mg / 0.5 (3 ml) UD INH SCH ×6 (03:08→23:41)
--- NOTE | 2018-01-01 04:15 | CON ---
Copied To: Harsh Vale MD Attending MD: Harsh Vale MD DATE: 12/31/2017 REASON FOR CONSULTATION: Chest pain. HISTORY OF PRESENT ILLNESS: The patient is a 72-year-old [place] male, who has history of coronary artery disease, status post coronary artery bypass surgery and a past history of chronic obstructive lung disease, on nasal O2 at home, history of rheumatoid arthritis, history of spinal surgery for spinal fracture with cord compression few years ago, presented because of shortness of breath on minimal exertion. This morning, the patient reported left-sided sharp chest pain in the left lateral aspect of the chest and the axillary area. The patient denies any radiation of chest pain to the arm. Denies any hemoptysis and denies any diaphoresis. SOCIAL HISTORY: The patient is a former smoker, quit 4 years ago. He is and lives with his . He uses a walker at home and wheelchair for transportation. MEDICATIONS: Zithromax 500 mg intravenously daily, Rocephin 1 g intravenously every 12 hours, Crestor 10 mg once daily, albuterol inhaler every 4 hours, Plavix 75 mg once a day, Singulair 10 mg once a day, TriCor 145 mg once a day, Solu-Medrol 40 mg intravenously every 6 hours, and Zebeta 5 mg daily. REVIEW OF SYSTEMS: No nausea or vomiting. No fever or chills. PHYSICAL EXAMINATION: GENERAL: The is an elderly male who does not appear to be in acute distress. VITAL SIGNS: Blood pressure 106/62, heart rate 73, respirations 18, and temperature 97.8. HEENT: Normocephalic. CHEST: Bilateral rhonchi. HEART: S1, S2 regular. ABDOMEN: Soft. EXTREMITIES: Trace leg edema. LABORATORY DATA: Today's hemoglobin and hematocrit are 12.2 and 38.4, white count 1.1, and platelet count 76,000. SMA-7: Sodium 138, potassium 4.5, chloride 97, CO2 of 34, glucose 114, BUN 16, and creatinine 0.6. One set of troponin today is negative. D-dimer is more than 5250. Venous Doppler of the lower extremities, no evidence of DVT. CT angio of the chest, technically limited examination. evidence of large central pulmonary embolus in the left main and lobar pulmonary arteries. Chronic consolidation in the right lower and right middle lobes. CT scan of the abdomen and pelvis, pancreatic tail mass, 1.7 cm, cardiomegaly with coronary artery calcification, bilateral -. Chest x-ray revealed cardiomegaly, consider mild CHF. EKG revealed sinus rhythm at the age of 64, inferolateral infract of indeterminate age, right bundle-branch block. ASSESSMENT: 1. Atypical chest pain. 2. Consider right lower and middle lobe pneumonia. 3. Chronic obstructive lung disease. 4. Rheumatoid arthritis. 5. Leukopenia and thrombocytopenia. RECOMMENDATIONS: Continue IV Zithromax and IV Rocephin. Continue Crestor 2 mg once a day, Plavix 75 mg once a day, Solu-Medrol 40 mg intravenously every 6 hours, TriCor 145 mg once a day, Zebeta 5 mg once a day. Conservative medical approach is recommended. The patient's most recent echocardiac study performed in 10/2016 revealed normal ventricular size and ejection fraction. Harsh Vale MD
[2018-01-01 06:58] LABS: BASO % 0.4 % (0.0-2.0); HEMOGLOBIN 11.3 g/dL (12.0-18.0); LYMPH # 0.4 K/uL (1.0-4.3); LYMPH % 27.1 % (20.0-40.0); MEAN CELL VOLUME 107.4 fL (80.0-94.0); MEAN CORPUSCULAR HEMOGLOBIN 34.2 pg (27.0-31.0); MEAN CORPUSCULAR HGB CONC 31.9 g/dL (33.0-37.0); MONO # 0.2 K/uL (0.0-0.8); MONO % 10.8 % (0.0-10.0); NEUT # 0.9 K/uL (1.8-7.0); NEUT % 61.7 % (50.0-75.0); NRBC % 0.1 % (0.0-2.0); RBC 3.31 Mil/uL (4.40-5.90); RED CELL DISTRIBUTION WIDTH 17.1 % (11.5-14.5)
[2018-01-01 07:01] LABS: WHITE BLOOD COUNT 1.5 K/uL (4.8-10.8)
[2018-01-01 07:45] LABS: ALB/GLOB RATIO 1.1 (1.0-2.1); ALBUMIN 2.8 g/dL (3.5-5.0); ALT/SGPT 42 U/L (21-72); AST/SGOT 38 U/L (17-59); BLOOD UREA NITROGEN 25 mg/dL (9-20); GFR AFRICAN-AMERICAN > 60; GFR NON-AFRICAN AMERICAN > 60
[2018-01-01] MEDS: Pantoprazole 20 mg EC Tab PO SCH (09:55)
[2018-01-01] MEDS: Azithromycin 500 MG in Sodium Chloride 0.9% 250 ML IVPB SCH (10:54)
--- NOTE | 2018-01-01 13:28 | PN ---
Copied To: Mercedez Larson MD Attending MD: Mercedez Larson MD DATE: 12/31/2017 LATE ENTRY FOR A DAILY PROGRESS NOTE SUBJECTIVE: The patient was seen on 12/31/2017. The patient was not in cardiopulmonary distress at rest at the time of this examination and he was complaining of exertional shortness of breath. The patient was not on BiPAP also at the time of this examination. PHYSICAL EXAMINATION: VITAL SIGNS: Temperature was 97.6, blood pressure 108/74, pulse is 65, and rate is 18. HEENT: Pupils equal and reactive to light. Normal-appearing mucosa of the conjunctivae, oropharyngeal and nasal membrane mucosa. NECK: Supple. No JVD. No carotid bruit. No lymph node. No thyromegaly. CHEST AND LUNGS: Bilateral symmetrical expansion. Decreased air entry both lower lung gardiner with scattered rhonchi and prolonged expiration. CARDIOVASCULAR SYSTEM: PMI not localized. S1 and S2. No additional sounds. ABDOMEN: Normoactive bowel sounds. No tenderness. No organomegaly. No masses. EXTREMITIES: No cyanosis. No clubbing. No edema. BRAND SPECIALIST: Alert, awake, oriented x2. No neurological deficit could be appreciated. ASSESSMENT: Exacerbation of chronic obstructive pulmonary disease and pneumonia, atypical chest pain, history of advanced rheumatoid arthritis and pancytopenia. PLAN: Continue current IV antibiotics. Taper steroids as tolerated. Follow recommendations of both aerial crop duster and statistician theoretical. Discussed the patient's condition with his and his son. Mercedez Larson MD
--- NOTE | 2018-01-01 16:15 | RAD ---
Date of service: 01/01/2018 PROCEDURE: Radiographs of the Chest and Left Ribs. HISTORY: cp COMPARISON: None available. TECHNIQUE: Frontal radiograph of the chest and multiple oblique radiographs of the left ribs were obtained. FINDINGS: LEFT RIBS: Technically limited. Fractures of the left 6th and 7th ribs laterally and possible anterior mildly displaced fracture of the ribs as well. There is questionable callus seen about these fractures suggesting possible nonacute nature. LUNGS: Left basilar platelike atelectasis. PLEURA: Moderate right pleural effusion. Small left pleural effusion. No pneumothorax. CARDIOVASCULAR: Normal sized heart. No pulmonary vascular congestion. OTHER FINDINGS: None. IMPRESSION: Fractures of approximately the left 6th and 7th ribs with possible two-part fracture of the 7th rib. Possible callus indicating nonacute nature of these fractures. Technically limited.
--- NOTE | 2018-01-01 16:31 | CP.PCM.PN ---
Subjective - Date & Time of Evaluation Date of Evaluation: 01/01/18 Time of Evaluation: 12:30 - Subjective Subjective: patient seen and examined Patient is off BiPAP on nasal cannula Less shortness of breath Afebrile Denies any chest pain Objective - Vital Signs/Intake and Output Vital Signs (last 24 hours): Temp Pulse Resp BP Pulse Ox 97.7 F 72 18 100/63 95 01/01/18 15:15 01/01/18 16:24 01/01/18 15:15 01/01/18 15:15 01/01/18 15:15 Intake and Output: 01/01/18 01/01/18 06:59 18:59 Intake Total 340 750 Output Total 600 Balance -260 750 - Medications Medications: Current Medications Acetaminophen (Tylenol 325mg Tab) 650 mg PO Q6 PRN PRN Reason: Headache Last Admin: 01/01/18 13:10 Dose: 650 mg Albuterol/Ipratropium (Duoneb 3 Mg/0.5 Mg (3 Ml) Ud) 3 ml INH RQ4 [facility] Last Admin: 01/01/18 16:20 Dose: 3 ml Bisoprolol Fumarate (Zebeta) 5 mg PO DAILY [facility] Last Admin: 01/01/18 09:55 Dose: 5 mg Calcium Carbonate (Oscal) 500 mg PO DAILY [facility] Last Admin: 01/01/18 09:55 Dose: 500 mg Clopidogrel Bisulfate (Plavix) 75 mg PO DAILY [facility] Last Admin: 01/01/18 09:55 Dose: 75 mg Docusate Sodium (Colace) 100 mg PO DAILY [facility] Last Admin: 01/01/18 09:56 Dose: 100 mg Fenofibrate (Tricor) 145 mg PO DAILY [facility] Last Admin: 01/01/18 09:55 Dose: 145 mg Ceftriaxone Sodium 1 gm/ (Sodium Chloride) 100 mls @ 100 mls/hr IVPB Q12H [facility] PRN Reason: Protocol Last Admin: 01/01/18 08:14 Dose: 100 mls/hr Azithromycin 500 mg/ Sodium (Chloride) 250 mls @ 250 mls/hr IVPB DAILY [facility] PRN Reason: Protocol Last Admin: 01/01/18 10:54 Dose: 250 mls/hr Methylprednisolone (Solu-Medrol) 40 mg IV Q6 [facility] Last Admin: 01/01/18 12:20 Dose: 40 mg Montelukast Sodium (Singulair) 10 mg PO [facility] Last Admin: 12/31/17 21:48 Dose: 10 mg Pantoprazole Sodium (Protonix Ec Tab) 20 mg PO DAILY [facility] Last Admin: 01/01/18 09:55 Dose: 20 mg Rosuvastatin Calcium (Crestor) 10 mg PO [facility] Last Admin: 12/31/17 21:48 Dose: 10 mg Tamsulosin HCl (Flomax) 0.4 mg PO DAILY [facility] Last Admin: 01/01/18 09:55 Dose: 0.4 mg - Labs Labs: 01/01/18 06:47 01/01/18 06:47 PT 10.0 SECONDS (9.7-12.2) 12/27/17 20:49 INR 0.9 12/27/17 20:49 APTT 40 SECONDS (21-34) H 12/27/17 20:49 - Head Exam Head Exam: ATRAUMATIC, NORMOCEPHALIC - ENT Exam ENT Exam: Mucous Membranes Moist - Neck Exam Neck Exam: Normal Inspection - Respiratory Exam Respiratory Exam: Decreased Breath Sounds - Cardiovascular Exam Cardiovascular Exam: REGULAR RHYTHM - GI/Abdominal Exam GI & Abdominal Exam: Soft, Normal Bowel Sounds Assessment and Plan (1) Hypercapnic respiratory failure Assessment & Plan: BiPAP at night and as needed Continue steroids and nebulizer treatment Continue antibiotics Status: Acute (2) COPD exacerbation Status: Acute (3) Pancytopenia Status: Acute (4) Sleep apnea, obstructive Status: Chronic
--- NOTE | 2018-01-01 19:16 | PN ---
Copied To: Harsh Vale MD Attending MD: Harsh Vale MD DATE: 01/01/2017 SUBJECTIVE: The patient's chest pain has improved. He is mildly short of breath. PHYSICAL EXAMINATION: VITAL SIGNS: Blood pressure 109/69, heart rate 86, temperature 97.6, and respirations 18. HEENT: Normocephalic. CHEST: Bilateral rhonchi. HEART: S1 and S2 regular. ABDOMEN: Soft. EXTREMITIES: Significant deformity from rheumatoid. LABORATORY DATA: Today's hemoglobin and hematocrit 11.3 and 35.5, white count 1.1, platelet count 98,000. SMA-7, sodium 141, potassium 5.1, chloride 98, CO2 of 39, glucose 123, BUN 25, and creatinine 0.8. Three sets of troponins are negative. ASSESSMENT: 1. Atypical chest pain, myocardial infarction is ruled out. 2. Coronary artery disease, status post coronary artery bypass surgery. 3. Abnormal electrocardiogram with evidence of right bundle-branch block, which is an old finding. 4. Rheumatoid arthritis. 5. Leukopenia and thrombocytopenia. RECOMMENDATIONS: Continue current IV Zithromax and IV Rocephin. Continue calcium carbonate 500 mg daily, Singulair 10 mg once a day, Solu-Medrol 40 mg every 6 hours, and Zebeta 5 mg once a day. Obtain Lt. Rib_ series. Harsh Vale MD MTDD
--- NOTE | 2018-01-01 20:16 | CP.PCM.PN ---
Subjective - Date & Time of Evaluation Date of Evaluation: 01/01/18 Time of Evaluation: 11:05 - Subjective Subjective: No complaints. Objective - Vital Signs/Intake and Output Vital Signs (last 24 hours): Temp Pulse Resp BP Pulse Ox 97.7 F 72 18 100/63 95 01/01/18 15:15 01/01/18 16:24 01/01/18 15:15 01/01/18 15:15 01/01/18 15:15 Intake and Output: 01/01/18 01/02/18 18:59 06:59 Intake Total 750 Balance 750 - Medications Medications: Current Medications Acetaminophen (Tylenol 325mg Tab) 650 mg PO Q6 PRN PRN Reason: Headache Last Admin: 01/01/18 19:33 Dose: 650 mg Albuterol/Ipratropium (Duoneb 3 Mg/0.5 Mg (3 Ml) Ud) 3 ml INH RQ4 [facility] Last Admin: 01/01/18 19:11 Dose: 3 ml Bisoprolol Fumarate (Zebeta) 5 mg PO DAILY [facility] Last Admin: 01/01/18 09:55 Dose: 5 mg Calcium Carbonate (Oscal) 500 mg PO DAILY [facility] Last Admin: 01/01/18 09:55 Dose: 500 mg Clopidogrel Bisulfate (Plavix) 75 mg PO DAILY [facility] Last Admin: 01/01/18 09:55 Dose: 75 mg Docusate Sodium (Colace) 100 mg PO DAILY [facility] Last Admin: 01/01/18 09:56 Dose: 100 mg Fenofibrate (Tricor) 145 mg PO DAILY [facility] Last Admin: 01/01/18 09:55 Dose: 145 mg Ceftriaxone Sodium 1 gm/ (Sodium Chloride) 100 mls @ 100 mls/hr IVPB Q12H [facility] PRN Reason: Protocol Last Admin: 01/01/18 08:14 Dose: 100 mls/hr Azithromycin 500 mg/ Sodium (Chloride) 250 mls @ 250 mls/hr IVPB DAILY [facility] PRN Reason: Protocol Last Admin: 01/01/18 10:54 Dose: 250 mls/hr Methylprednisolone (Solu-Medrol) 40 mg IV Q6 [facility] Last Admin: 01/01/18 18:46 Dose: 40 mg Montelukast Sodium (Singulair) 10 mg PO HS [facility] Last Admin: 12/31/17 21:48 Dose: 10 mg Pantoprazole Sodium (Protonix Ec Tab) 20 mg PO DAILY [facility] Last Admin: 01/01/18 09:55 Dose: 20 mg Rosuvastatin Calcium (Crestor) 10 mg PO HS [facility] Last Admin: 12/31/17 21:48 Dose: 10 mg Tamsulosin HCl (Flomax) 0.4 mg PO DAILY [facility] Last Admin: 01/01/18 09:55 Dose: 0.4 mg - Labs Labs: 01/01/18 06:47 01/01/18 06:47 PT 10.0 SECONDS (9.7-12.2) 12/27/17 20:49 INR 0.9 12/27/17 20:49 APTT 40 SECONDS (21-34) H 12/27/17 20:49 - Head Exam Head Exam: ATRAUMATIC - Eye Exam Eye Exam: Normal appearance - ENT Exam ENT Exam: Mucous Membranes Dry - Respiratory Exam Respiratory Exam: NORMAL BREATHING PATTERN - Cardiovascular Exam Cardiovascular Exam: +S1, +S2 - GI/Abdominal Exam GI & Abdominal Exam: Normal Bowel Sounds Assessment and Plan (1) Pancytopenia Assessment & Plan: counts improved since holding immunsupression Status: Acute (2) Pancreatic mass Assessment & Plan: stable by CT Status: Acute
--- NOTE | 2018-01-01 23:26 | PN ---
Copied To: Mercedez Larson MD Attending MD: Mercedez Larson MD DATE: 01/01/2018 SUBJECTIVE: Patient is seen today, 01/01/2018. He is not in any cardiopulmonary distress at the time of this examination. PHYSICAL EXAMINATION: VITAL SIGNS: He is on BiPAP. Blood pressure 100/63, temperature 97.7, respiratory rate 18, and pulse 84. HEENT: Pupils equal and reactive to light. Normal-appearing mucosa of the conjunctivae, oropharynx, and nasal membrane mucosa. NECK: Supple. No JVD. No carotid bruit. No lymph node. No thyromegaly. CHEST AND LUNGS: Bilateral symmetrical expansion. Good air exchange. No rales. No rhonchi. CARDIOVASCULAR SYSTEM: PMI not localized. S1, S2. No additional sounds. ABDOMEN: Normoactive bowel sounds. No tenderness. No organomegaly. No masses. EXTREMITIES: No cyanosis. No clubbing. No edema. GREEN CHAIN PULLER: Alert, awake, oriented x2. No neurological deficit could be appreciated. ASSESSMENT: 1. Exacerbation of chronic obstructive pulmonary disease, on home oxygen therapy. 2. Advanced rheumatoid arthritis. 3. Osteoarthritis. 4. Coronary artery disease, status post coronary artery bypass graft. PLAN: We will continue current steroids and IV antibiotics, and we will taper steroids as tolerated. We will start physical therapy and evaluate to discharge patient to transitional care unit for deconditioning. Mercedez Larson MD
[2018-01-02] MEDS: MethylPREDNISolone 40 mg Vial IV SCH ×4 (00:51→18:20)
[2018-01-02] MEDS: Albuterol-Ipratrop 3 mg / 0.5 (3 ml) UD INH SCH ×4 (07:30→19:27)
[2018-01-02 08:17] LABS: BASO % 0.2 % (0.0-2.0); HEMOGLOBIN 11.3 g/dL (12.0-18.0); LYMPH # 0.3 K/uL (1.0-4.3); LYMPH % 21.7 % (20.0-40.0); MEAN CELL VOLUME 106.7 fL (80.0-94.0); MEAN CORPUSCULAR HEMOGLOBIN 34.8 pg (27.0-31.0); MEAN CORPUSCULAR HGB CONC 32.6 g/dL (33.0-37.0); MEAN PLATELET VOLUME 9.9 fL (7.2-11.7); MONO # 0.1 K/uL (0.0-0.8); MONO % 8.2 % (0.0-10.0); NEUT # 0.9 K/uL (1.8-7.0); NEUT % 69.9 % (50.0-75.0); NRBC % 0.2 % (0.0-2.0); RBC 3.26 Mil/uL (4.40-5.90); RED CELL DISTRIBUTION WIDTH 16.9 % (11.5-14.5)
[2018-01-02 08:19] LABS: WHITE BLOOD COUNT 1.3 K/uL (4.8-10.8)
[2018-01-02 08:47] LABS: ALB/GLOB RATIO 1.2 (1.0-2.1); ALBUMIN 2.9 g/dL (3.5-5.0); ALT/SGPT 44 U/L (21-72); AST/SGOT 50 U/L (17-59); BLOOD UREA NITROGEN 26 mg/dL (9-20); CALCIUM 8.9 mg/dl (8.6-10.4); GFR AFRICAN-AMERICAN > 60; GFR NON-AFRICAN AMERICAN > 60
[2018-01-02] MEDS: Pantoprazole 20 mg EC Tab PO SCH (09:23)
[2018-01-02] MEDS: Azithromycin 500 MG in Sodium Chloride 0.9% 250 ML IVPB SCH (10:38)
--- NOTE | 2018-01-02 12:54 | CP.PCM.PN ---
Subjective - Date & Time of Evaluation Date of Evaluation: 01/02/18 Time of Evaluation: 09:45 - Subjective Subjective: the patient seen and examined Patient was off BiPAP during the examination On nasal cannula Afebrile Dyspnea on minimal exertion No chest pain Objective - Vital Signs/Intake and Output Vital Signs (last 24 hours): Temp Pulse Resp BP Pulse Ox 97.8 F 82 20 95/59 L 98 01/02/18 07:35 01/02/18 09:32 01/02/18 07:35 01/02/18 09:32 01/02/18 07:35 Intake and Output: 01/02/18 01/02/18 06:59 18:59 Intake Total 420 350 Output Total 600 Balance -180 350 - Medications Medications: Current Medications Acetaminophen (Tylenol 325mg Tab) 650 mg PO Q6 PRN PRN Reason: Headache Last Admin: 01/01/18 19:33 Dose: 650 mg Albuterol/Ipratropium (Duoneb 3 Mg/0.5 Mg (3 Ml) Ud) 3 ml INH RQ4 [facility] Last Admin: 01/02/18 07:30 Dose: 3 ml Bisoprolol Fumarate (Zebeta) 5 mg PO DAILY [facility] Last Admin: 01/02/18 09:13 Dose: Not Given Calcium Carbonate (Oscal) 500 mg PO DAILY [facility] Last Admin: 01/02/18 09:23 Dose: 500 mg Clopidogrel Bisulfate (Plavix) 75 mg PO DAILY [facility] Last Admin: 01/02/18 09:22 Dose: 75 mg Docusate Sodium (Colace) 100 mg PO DAILY [facility] Last Admin: 01/02/18 09:23 Dose: 100 mg Fenofibrate (Tricor) 145 mg PO DAILY [facility] Last Admin: 01/02/18 09:29 Dose: 145 mg Ceftriaxone Sodium 1 gm/ (Sodium Chloride) 100 mls @ 100 mls/hr IVPB Q12H [facility] PRN Reason: Protocol Last Admin: 01/02/18 09:02 Dose: 100 mls/hr Azithromycin 500 mg/ Sodium (Chloride) 250 mls @ 250 mls/hr IVPB DAILY [facility] PRN Reason: Protocol Last Admin: 01/02/18 10:38 Dose: 250 mls/hr Methylprednisolone (Solu-Medrol) 40 mg IV Q6 [facility] Last Admin: 01/02/18 05:40 Dose: 40 mg Montelukast Sodium (Singulair) 10 mg PO [facility] Last Admin: 01/01/18 21:28 Dose: 10 mg Pantoprazole Sodium (Protonix Ec Tab) 20 mg PO DAILY [facility] Last Admin: 01/02/18 09:23 Dose: 20 mg Rosuvastatin Calcium (Crestor) 10 mg PO HS [facility] Last Admin: 01/01/18 21:28 Dose: 10 mg Tamsulosin HCl (Flomax) 0.4 mg PO DAILY [facility] Last Admin: 01/02/18 09:23 Dose: 0.4 mg - Labs Labs: 01/02/18 08:07 01/02/18 08:07 PT 10.0 SECONDS (9.7-12.2) 12/27/17 20:49 INR 0.9 12/27/17 20:49 APTT 40 SECONDS (21-34) H 12/27/17 20:49 - Head Exam Head Exam: ATRAUMATIC, NORMOCEPHALIC - ENT Exam ENT Exam: Mucous Membranes Moist - Neck Exam Neck Exam: Normal Inspection - Respiratory Exam Respiratory Exam: Decreased Breath Sounds - Cardiovascular Exam Cardiovascular Exam: REGULAR RHYTHM - GI/Abdominal Exam GI & Abdominal Exam: Soft Assessment and Plan (1) Hypercapnic respiratory failure Assessment & Plan: BiPAP at night or as needed For transfer to rehabilitation Continue steroids and neb treatment Status: Acute (2) COPD exacerbation Status: Acute (3) Pancytopenia Status: Acute (4) Sleep apnea, obstructive Status: Chronic
--- NOTE | 2018-01-02 18:27 | PN ---
Copied To: Harsh Vale MD Attending MD: Harsh Vale MD DATE: 01/02/2018 SUBJECTIVE: The patient is mildly short of breath, chest pain has improved. PHYSICAL EXAMINATION: VITAL SIGNS: Blood pressure 95/59, heart rate 82, temperature 97.8, respirations 20. HEENT: Normocephalic. CHEST: Bilateral rhonchi. HEART: S1 and S2 regular. EXTREMITIES: No edema. LABORATORY DATA: Today's hemoglobin and hematocrit 11.3 and 34.8, white count 1.3, platelet count 86,000. SMA-7, sodium 142, potassium 4.8, chloride 97, CO2 of 39, glucose 104, BUN 26, creatinine 0.7. Left rib series revealed a fracture of approximately the left sixth and seventh rib with possible two-part fracture of seventh rib. ASSESSMENT: 1. Chest pain, consider recent left rib fractures. 2. Coronary artery disease with history of coronary bypass surgery in the past. 3. Chronic obstructive lung disease. 4. Rheumatoid arthritis. 5. Leukopenia and thrombocytopenia. PLAN: The patient to continue current IV Zithromax and IV Rocephin. Continue Plavix 75 mg once a day, Singulair 10 mg once a day, Solu-Medrol 40 mg intravenously every 6 hours and Zebeta at 5 mg daily. Harsh Vale MD
--- NOTE | 2018-01-02 21:26 | CARD ---
APPROVED REPORT Date of service: 12/31/2017 EKG Measurement Heart [id number] <Conclusion> Normal sinus rhythm Right bundle branch block Inferior infarct, age undetermined Abnormal ECG
[2018-01-03] MEDS: MethylPREDNISolone 40 mg Vial IV SCH ×3 (00:16→12:40)
--- NOTE | 2018-01-03 00:48 | PN ---
Copied To: Mercedez Larson MD Attending MD: Mercedez Larson MD DATE: 01/02/2018 SUBJECTIVE: The patient is seen today, 01/02/2018. He is not on cardiopulmonary distress while he is lying down in bed. PHYSICAL EXAMINATION: VITAL SIGNS: Blood pressure 110/66, temperature 97.9, respiratory rate 20, and pulse 66. HEENT: Pupils equal and reactive to light. Normal-appearing mucosa of the conjunctivae, oropharynx, and nasal membrane mucosa. NECK: Supple. No JVD. No carotid bruit. No lymph nodes. No thyromegaly. CHEST AND LUNGS: Bilateral symmetrical expansion. Good air exchange. No rales. Scattered rhonchi. CARDIOVASCULAR SYSTEM: PMI not localized. S1, S2. No additional sounds. ABDOMEN: Normoactive bowel sounds. No tenderness. No organomegaly. No masses. EXTREMITIES: No cyanosis. No clubbing. No edema. BPM DEVELOPER: Alert, awake, oriented x2. No neurological deficit could be appreciated. ASSESSMENT: Exacerbation of chronic obstructive pulmonary disease, pneumonia, hypertension, coronary artery disease. PLAN: Continue current medications including tapering steroids and start physical therapy and follow recommendations of the consultants. Plan to discharge to subacute rehab/transitional care unit. Mercedez Larson MD
[2018-01-03 07:46] LABS: BASO % 0.2 % (0.0-2.0); HEMOGLOBIN 11.5 g/dL (12.0-18.0); LYMPH # 0.3 K/uL (1.0-4.3); LYMPH % 23.8 % (20.0-40.0); MEAN CORPUSCULAR HEMOGLOBIN 34.7 pg (27.0-31.0); MEAN CORPUSCULAR HGB CONC 32.4 g/dL (33.0-37.0); MEAN PLATELET VOLUME 10.2 fL (7.2-11.7); MONO # 0.1 K/uL (0.0-0.8); MONO % 11.1 % (0.0-10.0); NEUT # 0.8 K/uL (1.8-7.0); NEUT % 64.9 % (50.0-75.0); NRBC % 0.3 % (0.0-2.0); RBC 3.3 Mil/uL (4.40-5.90)
[2018-01-03 07:49] LABS: WHITE BLOOD COUNT 1.3 K/uL (4.8-10.8)
[2018-01-03 07:58] LABS: ALB/GLOB RATIO 1.2 (1.0-2.1); ALBUMIN 2.7 g/dL (3.5-5.0); ALT/SGPT 49 U/L (21-72); AST/SGOT 42 U/L (17-59); BLOOD UREA NITROGEN 28 mg/dL (9-20); CALCIUM 8.8 mg/dl (8.6-10.4); GFR AFRICAN-AMERICAN > 60; GFR NON-AFRICAN AMERICAN > 60
[2018-01-03 08:51] VITALS: RESP 18
[2018-01-03] MEDS: Pantoprazole 20 mg EC Tab PO SCH (09:14)
--- NOTE | 2018-01-03 10:12 | CP.PCM.PN ---
Subjective - Date & Time of Evaluation Date of Evaluation: 01/03/18 Time of Evaluation: 08:20 - Subjective Subjective: complaining of dyspnea on minimal exertion on BiPAP at night or as needed afebrile no chest pain Objective - Vital Signs/Intake and Output Vital Signs (last 24 hours): Temp Pulse Resp BP Pulse Ox 97.4 F L 59 L 18 134/66 95 01/03/18 07:20 01/03/18 07:45 01/03/18 07:20 01/03/18 07:20 01/03/18 07:20 Intake and Output: 01/03/18 01/03/18 06:59 18:59 Output Total 375 Balance -375 - Medications Medications: Current Medications Acetaminophen (Tylenol 325mg Tab) 650 mg PO Q6 PRN PRN Reason: Headache Last Admin: 01/01/18 19:33 Dose: 650 mg Albuterol/Ipratropium (Duoneb 3 Mg/0.5 Mg (3 Ml) Ud) 3 ml INH RQ4 [facility] Bisoprolol Fumarate (Zebeta) 5 mg PO DAILY [facility] Last Admin: 01/03/18 09:14 Dose: 5 mg Calcium Carbonate (Oscal) 500 mg PO DAILY [facility] Last Admin: 01/03/18 09:14 Dose: 500 mg Clopidogrel Bisulfate (Plavix) 75 mg PO DAILY [facility] Last Admin: 01/03/18 09:14 Dose: 75 mg Docusate Sodium (Colace) 100 mg PO DAILY [facility] Last Admin: 01/03/18 09:14 Dose: 100 mg Fenofibrate (Tricor) 145 mg PO DAILY [facility] Last Admin: 01/03/18 09:27 Dose: 145 mg Methylprednisolone (Solu-Medrol) 40 mg IV Q6 [facility] Last Admin: 01/03/18 05:50 Dose: 40 mg Montelukast Sodium (Singulair) 10 mg PO HS [facility] Last Admin: 01/02/18 21:58 Dose: 10 mg Pantoprazole Sodium (Protonix Ec Tab) 20 mg PO DAILY [facility] Last Admin: 01/03/18 09:14 Dose: 20 mg Rosuvastatin Calcium (Crestor) 10 mg PO HS [facility] Last Admin: 01/02/18 21:58 Dose: 10 mg Tamsulosin HCl (Flomax) 0.4 mg PO DAILY [facility] Last Admin: 01/03/18 09:14 Dose: 0.4 mg - Labs Labs: 01/03/18 07:35 01/03/18 07:35 PT 10.0 SECONDS (9.7-12.2) 12/27/17 20:49 INR 0.9 12/27/17 20:49 APTT 40 SECONDS (21-34) H 12/27/17 20:49 - Head Exam Head Exam: ATRAUMATIC, NORMOCEPHALIC - ENT Exam ENT Exam: Mucous Membranes Moist - Neck Exam Neck Exam: Normal Inspection - Respiratory Exam Respiratory Exam: Decreased Breath Sounds - Cardiovascular Exam Cardiovascular Exam: REGULAR RHYTHM - GI/Abdominal Exam GI & Abdominal Exam: Soft, Normal Bowel Sounds Assessment and Plan (1) Hypercapnic respiratory failure Assessment & Plan: Taper IV steroids Nebulizer treatment BiPAP For rehabilitation Status: Acute (2) COPD exacerbation Status: Acute (3) Pancytopenia Status: Acute (4) Sleep apnea, obstructive Status: Chronic
[2018-01-03] MEDS: Azithromycin 500 MG in Sodium Chloride 0.9% 250 ML IVPB SCH (11:39)
[2018-01-03] MEDS: Albuterol-Ipratrop 3 mg / 0.5 (3 ml) UD INH SCH ×2 (12:31→15:59)
--- NOTE | 2018-01-03 13:39 | CP.PCM.PN ---
Subjective - Date & Time of Evaluation Date of Evaluation: 01/03/18 Time of Evaluation: 13:39 - Subjective Subjective: PT CLEARED FOR D/C TO [facility] TODAY PER DR. NAVARRO UNDER HIS SERVICE. SW TO ARRANGE TRANSPORTATION THIS EVENING. NO FURTHER ORDERS. -PLACE UNDER THE SERVICE OF DR. NAVARRO WHILE AT [facility]---CALL DR. NAVARRO FOR ADMITTING ORDERS. -FOLLOW UP WITH TORRES HOPE, AND KARYN. -CONTINUE MEDICATIONS PER THE MED REC FORM. -FOR QUESTIONS AND ORDERS, CONTACT DR. NAVARRO. Objective - Vital Signs/Intake and Output Vital Signs (last 24 hours): Temp Pulse Resp BP Pulse Ox 97.4 F L 59 L 18 134/66 95 01/03/18 07:20 01/03/18 13:33 01/03/18 07:20 01/03/18 07:20 01/03/18 07:20 Intake and Output: 01/03/18 01/03/18 06:59 18:59 Output Total 375 Balance -375 - Medications Medications: Current Medications Acetaminophen (Tylenol 325mg Tab) 650 mg PO Q6 PRN PRN Reason: Headache Last Admin: 01/01/18 19:33 Dose: 650 mg Albuterol/Ipratropium (Duoneb 3 Mg/0.5 Mg (3 Ml) Ud) 3 ml INH RQ4 [facility] Last Admin: 01/03/18 12:31 Dose: 3 ml Bisoprolol Fumarate (Zebeta) 5 mg PO DAILY [facility] Last Admin: 01/03/18 09:14 Dose: 5 mg Calcium Carbonate (Oscal) 500 mg PO DAILY [facility] Last Admin: 01/03/18 09:14 Dose: 500 mg Clopidogrel Bisulfate (Plavix) 75 mg PO DAILY [facility] Last Admin: 01/03/18 09:14 Dose: 75 mg Docusate Sodium (Colace) 100 mg PO DAILY [facility] Last Admin: 01/03/18 09:14 Dose: 100 mg Fenofibrate (Tricor) 145 mg PO DAILY [facility] Last Admin: 01/03/18 09:27 Dose: 145 mg Methylprednisolone (Solu-Medrol) 40 mg IV Q6 [facility] Last Admin: 01/03/18 12:40 Dose: 40 mg Montelukast Sodium (Singulair) 10 mg PO HS [facility] Last Admin: 01/02/18 21:58 Dose: 10 mg Pantoprazole Sodium (Protonix Ec Tab) 20 mg PO DAILY [facility] Last Admin: 01/03/18 09:14 Dose: 20 mg Rosuvastatin Calcium (Crestor) 10 mg PO HS [facility] Last Admin: 01/02/18 21:58 Dose: 10 mg Tamsulosin HCl (Flomax) 0.4 mg PO DAILY [facility] Last Admin: 01/03/18 09:14 Dose: 0.4 mg - Labs Labs: 01/03/18 07:35 01/03/18 07:35 PT 10.0 SECONDS (9.7-12.2) 12/27/17 20:49 INR 0.9 12/27/17 20:49 APTT 40 SECONDS (21-34) H 12/27/17 20:49
[2018-01-03 16:10] VITALS: BP 123/67; PULSE 57; TEMP 97.5; O2SAT 96
--- NOTE | 2018-01-03 18:31 | PN ---
Copied To: Harsh Vale MD Attending MD: Harsh Vale MD DATE: 01/03/2018 SUBJECTIVE: The patient's chest pain has improved. He is tachypneic on minimal exertion. PHYSICAL EXAMINATION: VITAL SIGNS: Blood pressure 134/66, heart rate 60, temperature 97.4, respirations 18. HEENT: Normocephalic. CHEST: Bilateral rhonchi. HEART: S1 and S2 regular. EXTREMITIES: Trace pedal edema. LABORATORY DATA: Today's hemoglobin and hematocrit are 11.5 and 35.3, white count 1.3, and platelet count 92,000. Today's SMA-7: Sodium 141, potassium 4.5, chloride 96, CO2 of 39, glucose 105, BUN 28, and creatinine 0.7. ASSESSMENT: 1. Atypical chest pain. 2. Old left rib fractures. 3. Coronary artery disease, status post coronary artery bypass surgery. 4. Exacerbation of chronic obstructive lung disease. 5. Leukopenia and thrombocytopenia. RECOMMENDATIONS: Continue Crestor 10 mg once a day, Protonix 20 mg once a day, Singulair 10 mg once a day, Solu-Medrol at mg once a day, Zebeta at 5 mg once a day, and Plavix at 75 mg once a day. Plan is to transfer the patient to rehab at [facility]. Harsh Vale MD
--- NOTE | 2018-01-05 02:19 | DS ---
Copied To: Mercedez Larson MD Attending MD: Mercedez Larson MD REASON FOR ADMISSION This is a 72-year-old Citizen Of [place] male with history of multiple problems including chronic obstructive pulmonary disease and advanced rheumatoid arthritis who was admitted for pneumonia and exacerbation of chronic obstructive pulmonary disease. COURSE OF HOSPITALIZATION: Patient was admitted to medical floor and he was started on both bronchodilators as well as IV steroids. Patient had Cardiology consult done by Dr. Vale and Pulmonary consult done by Dr. Malone. Patient was also started on physical therapy. During the patient's stay, he was in BiPAP. Patient did well and he was discharged to transitional care unit at [facility] for deconditioning and physical therapy. FINAL DIAGNOSES Pneumonia, exacerbation of chronic obstructive pulmonary disease, advanced rheumatoid arthritis, hypertension, coronary artery disease, status post coronary artery bypass graft. Mercedez Larson MD Job # [id number]
== END 2018-01-03 17:57 | DRG 193 ==
LOC: C.ER 20:24 → C.9E 23:08 → C.9I 12-28 02:09 → C.6T 12-30 05:25
PROVIDERS: ADMIT Internal Medicine; ATTEND Internal Medicine
PROC: 5A09557 Assistance with Respiratory Ventilation, Greater than 96 Consecutive Hours, Continuous Positive Airway Pressure (ICD-10-PCS; principal; 2017-12-28)
DX: J18.9 Pneumonia, unspecified organism (principal); J96.92 Respiratory failure, unspecified with hypercapnia; D61.811 Other drug-induced pancytopenia; J44.0 Chronic obstructive pulmonary disease with (acute) lower respiratory infection; J44.1 Chronic obstructive pulmonary disease with (acute) exacerbation; E11.9 Type 2 diabetes mellitus without complications; E78.00 Pure hypercholesterolemia, unspecified; F02.80 Dementia in other diseases classified elsewhere, unspecified severity, without behavioral disturbance, psychotic disturbance, mood disturbance, and anxiety; G30.9 Alzheimer's disease, unspecified; G47.33 Obstructive sleep apnea (adult) (pediatric); I11.0 Hypertensive heart disease with heart failure; I25.10 Atherosclerotic heart disease of native coronary artery without angina pectoris; I50.9 Heart failure, unspecified; M06.9 Rheumatoid arthritis, unspecified; M47.9 Spondylosis, unspecified; M81.0 Age-related osteoporosis without current pathological fracture; J98.4 Other disorders of lung; K86.9 Disease of pancreas, unspecified; T39.4X5A Adverse effect of antirheumatics, not elsewhere classified, initial encounter; Z99.81 Dependence on supplemental oxygen; Z91.19 Patient's noncompliance with other medical treatment and regimen; Z74.01 Bed confinement status

== ENCOUNTER 2018-05-06 13:05 | Inpatient (IN) | payer MEDICARE, MEDICAID ==
[2018-05-06 13:05] VITALS: BMI 27.7
--- NOTE | 2018-05-06 13:59 | C.PDOC ---
History Of Present Illness 73 year old male with a history of COPD, heart failure, hyperlipidemia, hypertension, sleep apnea, Alzheimer's Disease, and arthritis presents to the ED for evaluation of shortness of breath, generalized weakness, and productive cou gh with white phlegm for 3 days. The patient reports his current symptoms are similar to prior and notes they have worsened since onset. PMD Dr. Larson. Director Channel Dr. Malone. Denies tobacco use. He denies fever, chills, rhinorrhea, leg swelling, and any other associated symptoms. Time Seen by Provider: 05/06/18 13:54 Chief Complaint (Nursing): Shortness Of Breath History Per: Patient History/Exam Limitations: no limitations Onset/Duration Of Symptoms: Days Current Symptoms Are (Timing): Still Present Past Medical History Vital Signs: Last Vital Signs Temp 97.5 F L 05/06/18 13:15 Pulse 89 05/06/18 13:15 Resp BP 106/78 05/06/18 13:15 Pulse Ox 98 05/06/18 13:15 - Medical History PMH: Alzheimer's Disease, Arthritis (BACK), Asthma, Back Problems, CAD, COPD, Diabetes, Fractures, HTN, Hypercholesterolemia, Hyperlipidemia, Sleep Apnea Denies: CHF, Hepatitis, HIV, Hypothyroidism, Chronic Kidney Disease, Rheumatoid Arthritis, Seizures, Sexually Transmitted Disease Surgical History: Back Surgery (T-spine), CABG (1999), Coronary Stent - [facility] Procedures ASSISTANCE WITH RESPIRATORY VENTILATION, 24-96 HRS (05/24/15) ASSISTANCE WITH RESPIRATORY VENTILATION, <24 HRS, CPAP (07/31/15) ASSISTANCE WITH RESPIRATORY VENTILATION, >96 HRS, CPAP (12/27/17) EXERCISE TRMT MUSCULOSK LOW BACK/LE W ASSIST EQUIP (03/02/16) EXTRACTION OF ILIAC BONE MARROW, PERCUTANEOUS APPROACH (06/27/15) FUSION 2-7 T JT W AUTOL SUB, POST APPR P COL, OPEN (06/27/15) GAIT TRAINING/AMBULAT TREATMENT USING ASSIST EQUIPMENT (01/03/18) HOME MANAGEMENT TREATMENT USING ASSIST EQUIPMENT (01/03/18) INTRODUCTION OF ANTI-INFLAM INTO RESP TRACT, VIA OPENING (01/03/18) INTRODUCTION OF SERUM/TOX/VACCINE INTO MUSCLE, PERC APPROACH (07/31/15) ROM & JT MOBILITY TRMT MUSCULOSK LOW BACK/LE W ASSIST EQUIP (03/02/16) TRANSFUSE NONAUT PLATELETS IN PERIPH VEIN, PERC (06/25/16) TRANSFUSE NONAUT RED BLOOD CELLS IN PERIPH VEIN, PERC (06/25/16) Family History: States: Unknown Family Hx - Social History Hx Tobacco Use: Yes Hx Alcohol Use: No Hx Substance Use: No - Immunization History Hx Tetanus Toxoid Vaccination: No Hx Influenza Vaccination: No Hx Pneumococcal Vaccination: Yes Review Of Systems Except As Marked, All Systems Reviewed And Found Negative. (as per HPI.) Constitutional: Positive for: Weakness (generalized. ). Negative for: Fever, Chills ENT: Negative for: Nose Discharge Respiratory: Positive for: Cough (productive. ), Shortness of Breath Musculoskeletal: Negative for: Other (leg swelling. ) Physical Exam - Physical Exam Appears: Chronically Ill, Other (mild distress. tired appearing. ) Skin: Warm, Dry Head: Normacephalic, Tenderness Eye(s): bilateral: PERRL, EOMI Nose: Normal Lips: No Swelling Throat: No Erythema, No Exudate Lymphatic: No Adenopathy Chest: Symmetrical Cardiovascular: Rhythm Regular, No Murmur Respiratory: Accessory Muscle Use, Rales (on left lower lung field.), Other (abdomen breathing. ) Gastrointestinal/Abdominal: Soft, No Tenderness Back: Other (severe kyphosis.) Extremity: Normal ROM, No Pedal Edema Neurological/Psych: Oriented x3, Normal Motor, Normal Sensation ED Course And Treatment - Laboratory Results Result Diagrams: 05/06/18 14:23 05/06/18 14:23 ECG Rhythm: Sinus Rhythm (w PACs), R BBB O2 Sat by Pulse Oximetry: 98 (RA) Pulse Ox Interpretation: Normal - Radiology CXR: Read By Radiologist - Other Rad CXR X-Ray: Viewed By Me, Read By Radiologist Interpretation: FINDINGS: LUNGS: Stable consolidative changes similar to that identified previously. PLEURA: Stable pleural disease likely pleural thickening rather than effusions. CARDIOVASCULAR: Atherosclerotic calcifications identified primarily aortic arch. Cardiomegaly. No evidence of acute, significant cardiovascular disease. OSSEOUS STRUCTURES: No significant interval change compared to the prior examination(s). VISUALIZED UPPER ABDOMEN: Normal. OTHER FINDINGS: None. IMPRESSION: No significant interval change compared to the prior examination(s). Critical Care Time - Critical Care Note Total Time (in mins): 30 Documented critical care: time excludes all time spent performing seperately billable procedures. Medical Decision Making Medical Decision Making: Impression: COPD exacerbation. Plan: --Blood sent. --EKG. --CXR --Influenza --Duoneb. --Solu-medrol. Progress/Update: Patient was evaluated by Dr. Malone in the ER who initiated BiPAP. 4:09pm : Spoke with Dr. Larson regarding the patient's case. Disposition - Disposition Disposition: HOSPITALIZED Disposition Time: 16:00 Condition: GUARDED - Clinical Impression Clinical Impression: COPD exacerbation - Scribe Statement The provider has reviewed the documentation as recorded by the Scribe (Lala Reeves) Provider Attestation: All medical record entries made by the Scribe were at my direction and personally dictated by me. I have reviewed the chart and agree that the record accurately reflects my personal performance of the history, physical exam, medical decision making, and the department course for this patient. I have also personally directed, reviewed, and agree with the discharge instructions and disposition.
[2018-05-06] MEDS ORDERED: Albuterol-Ipratrop 3 mg / 0.5 (3 ml) UD INH STA (14:01)
[2018-05-06 14:38] LABS: ARTERIAL BLOOD GAS HCO3 36.1 mmol/L (21-28); ARTERIAL BLOOD GAS HEMOGLOBIN 11.5 g/dL (11.7-17.4); ARTERIAL BLOOD GAS O2 SAT 99.7 % (95-98); ARTERIAL BLOOD GAS PCO2 62 mm/Hg (35-45); ARTERIAL BLOOD GAS PH 7.43 (7.35-7.45); ARTERIAL BLOOD GAS PO2 172 mm/Hg (80-100); ARTERIAL BLOOD GAS TCO2 43.1 mmol/L (22-28)
[2018-05-06 14:47] LABS: BASO % 0.6 % (0.0-2.0); HEMOGLOBIN 12.2 g/dL (12.0-18.0); LYMPH # 0.8 K/uL (1.0-4.3); LYMPH % 23.4 % (20.0-40.0); MEAN CORPUSCULAR HEMOGLOBIN 32.2 pg (27.0-31.0); MEAN CORPUSCULAR HGB CONC 32.1 g/dL (33.0-37.0); MEAN PLATELET VOLUME 11.2 fL (7.2-11.7); MONO # 0.4 K/uL (0.0-0.8); MONO % 12.6 % (0.0-10.0); NEUT # 2.1 K/uL (1.8-7.0); NEUT % 63.4 % (50.0-75.0); NRBC % 0.3 % (0.0-2.0); RBC 3.8 Mil/uL (4.40-5.90); RED CELL DISTRIBUTION WIDTH 16.6 % (11.5-14.5); WHITE BLOOD COUNT 3.3 K/uL (4.8-10.8)
[2018-05-06 14:54] LABS: B-TYPE NATRIURETIC PEPTIDE 853 pg/mL (0-900)
[2018-05-06 15:02] LABS: BLOOD UREA NITROGEN 20 mg/dL (9-20); GFR NON-AFRICAN AMERICAN > 60
[2018-05-06 15:03] LABS: ALB/GLOB RATIO 1.1 (1.0-2.1); ALT/SGPT 35 U/L (21-72); AST/SGOT 41 U/L (17-59)
--- NOTE | 2018-05-06 15:22 | RAD ---
Date of service: 05/06/2018 PROCEDURE: CHEST RADIOGRAPH, 1 VIEW HISTORY: SOB COMPARISON: 01/01/2018 single-view chest. April 01, 2018 CT thorax FINDINGS: LUNGS: Stable consolidative changes similar to that identified previously. PLEURA: Stable pleural disease likely pleural thickening rather than effusions. CARDIOVASCULAR: Atherosclerotic calcifications identified primarily aortic arch. Cardiomegaly. No evidence of acute, significant cardiovascular disease. OSSEOUS STRUCTURES: No significant interval change compared to the prior examination(s). VISUALIZED UPPER ABDOMEN: Normal. OTHER FINDINGS: None. IMPRESSION: No significant interval change compared to the prior examination(s).
--- NOTE | 2018-05-06 17:47 | CP.PCM.CON ---
History of Present Illness - History of Present Illness History of Present Illness: Reason for consultation: COPD exacerbation HPI: 73-year-old male with a history of COPD, heart failure, hyperlipidemia, HTN, sleep apnea, Alzheimer's Disease and arthritis presents to the ED for SOB and cough. He has had a cough for the past 3 years and coughs up white phlegm often. Symptoms have worsened in the past 3 days. Patient reports that he cannot sleep at night due to his cough. PMH: COPD, heart failure, hyperlipidemia, HTN, sleep apnea, Alzheimer's Disease and arthritis FHx: unknown Social Hx: Current tobacco use 3 cig/day x 50 years, denies alcohol or other substance use. Allergies: penicillins Home Meds: Lasix 20 mg PO, Singulair 10 mg, Lipitor 20 mg, Flomax 0.4 mg, Oscal 500 mg, Plaquenil 200 mg PO BID, Zebeta 5 mg, Tricor 145 mg, bisoprolol 2.5 mg, Plavix 75 mg ROS: +productive cough, SOB, PRUITT, difficulty swallowing PE: Patient seen and examined at bedside, lying down comfortably. Afebrile and in no acute distress. CXR 05/06: Stable consolidative changes similar to that identified previously. Stable pleural disease likely pleural thickening rather than effusions. Review of Systems - Review of Systems All systems: reviewed and no additional remarkable complaints except (shortness of breath and cough) Past Patient History - Infectious Disease Hx of Infectious Diseases: None - Past Medical History & Family History Past Medical History?: Yes - Past Social History Smoking Status: Former Smoker - CARDIAC Hx Congestive Heart Failure: No Hx Hypercholesterolemia: Yes Hx Hypertension: Yes - PULMONARY Hx Asthma: Yes Hx Chronic Obstructive Pulmonary Disease (COPD): Yes Hx Sleep Apnea: Yes - NEUROLOGICAL Hx Alzheimer's Disease: Yes Hx Seizures: No - HEENT Hx HEENT Problems: No - RENAL Hx Chronic Kidney Disease: No - ENDOCRINE/METABOLIC Hx Hypothyroidism: No - HEMATOLOGICAL/ONCOLOGICAL Hx Human Immunodeficiency Virus (HIV): No - INTEGUMENTARY Hx Dermatological Problems: No - MUSCULOSKELETAL/RHEUMATOLOGICAL Hx Arthritis: Yes (BACK) Hx Fractures: Yes Hx Rheumatoid Arthritis: No - GASTROINTESTINAL Hx Gastrointestinal Disorders: No - GENITOURINARY/GYNECOLOGICAL Hx Sexually Transmitted Disorders: No - PSYCHIATRIC Hx Substance Use: No - SURGICAL HISTORY Hx Coronary Artery Bypass Graft: Yes (1999) Hx Coronary Stent: Yes - ANESTHESIA Hx Anesthesia: Yes Hx Anesthesia Reactions: No Hx Malignant Hyperthermia: No Meds Allergies/Adverse Reactions: Allergies Allergy/AdvReac Type Severity Reaction Status Date / Time Penicillins Allergy Unknown RASH Verified 05/06/18 13:22 Physical Exam - Head Exam Head Exam: ATRAUMATIC, NORMOCEPHALIC - Eye Exam Eye Exam: Normal appearance - ENT Exam ENT Exam: Mucous Membranes Moist - Neck Exam Neck exam: Positive for: Normal Inspection - Respiratory Exam Respiratory Exam: Decreased Breath Sounds - Cardiovascular Exam Cardiovascular Exam: REGULAR RHYTHM - GI/Abdominal Exam GI & Abdominal Exam: Normal Bowel Sounds, Soft - Extremities Exam Extremities exam: Positive for: normal inspection Results - Vital Signs Recent Vital Signs: Last Vital Signs Temp 97.5 F L 05/06/18 13:15 Pulse 66 05/06/18 17:31 Resp 16 05/06/18 17:31 BP 101/55 L 05/06/18 17:31 Pulse Ox 97 05/06/18 17:31 - Labs Result Diagrams: 05/06/18 14:23 05/06/18 14:23 Labs: Laboratory Results - last 24 hr 05/06/18 05/06/18 05/06/18 14:23 14:23 14:23 WBC 3.3 L RBC 3.80 L Hgb 12.2 Hct 38.0 MCV 100.0 H D MCH 32.2 H MCHC 32.1 L RDW 16.6 H Plt Count 87 L MPV 11.2 Neut % (Auto) 63.4 Lymph % (Auto) 23.4 Kent % (Auto) 12.6 H Eos % (Auto) 0.0 Baso % (Auto) 0.6 Neut # (Auto) 2.1 Lymph # (Auto) 0.8 L Kent # (Auto) 0.4 Eos # (Auto) 0.0 Baso # (Auto) 0.0 Differential Comment Puncture Site pCO2 pO2 HCO3 ABG pH ABG Total CO2 ABG O2 Saturation ABG Base Excess ABG Hemoglobin ABG Carboxyhemoglobin POC ABG HHb (Measured) ABG Methemoglobin Andrei Test Hgb O2 Saturation FiO2 Sodium 136 Potassium 4.1 Chloride 92 L Carbon Dioxide 39 H Anion Gap 9 L BUN 20 Creatinine 0.8 Est GFR ( Amer) > 60 Est GFR (Non-Af Amer) > 60 Random Glucose 120 H Calcium 9.0 Total Bilirubin 0.6 AST 41 ALT 35 Alkaline Phosphatase 41 Troponin I 0.0210 NT-Pro-B Natriuret Pep 853 Total Protein 5.7 L Albumin 3.0 L Globulin 2.7 Albumin/Globulin Ratio 1.1 Influenza Typ A,B (EIA) Negative for flu a/b 05/06/18 14:30 WBC RBC Hgb Hct MCV MCH MCHC RDW Plt Count MPV Neut % (Auto) Lymph % (Auto) Kent % (Auto) Eos % (Auto) Baso % (Auto) Neut # (Auto) Lymph # (Auto) Kent # (Auto) Eos # (Auto) Baso # (Auto) Differential Comment Puncture Site Right rad pCO2 62 H pO2 172 H HCO3 36.1 H ABG pH 7.43 ABG Total CO2 43.1 H ABG O2 Saturation 99.7 H ABG Base Excess 14.4 H ABG Hemoglobin 11.5 L ABG Carboxyhemoglobin 2.4 H POC ABG HHb (Measured) 0.3 ABG Methemoglobin 1.8 Andrei Test Na Hgb O2 Saturation 95.5 FiO2 40.0 Sodium Potassium Chloride Carbon Dioxide Anion Gap BUN Creatinine Est GFR ( Amer) Est GFR (Non-Af Amer) Random Glucose Calcium Total Bilirubin AST ALT Alkaline Phosphatase Troponin I NT-Pro-B Natriuret Pep Total Protein Albumin Globulin Albumin/Globulin Ratio Influenza Typ A,B (EIA) Assessment & Plan (1) Hypercapnic respiratory failure Status: Acute Priority: High Comment: BiPAP. Steroids and nebulizer treatment. IV antibiotics. Diuretics. Anxiolytic/antitussive (2) COPD exacerbation Status: Acute Priority: High (3) Sleep apnea, obstructive Status: Chronic Priority: High
[2018-05-06] MEDS: Azithromycin 500 MG in Sodium Chloride 0.9% 250 ML IVPB SCH (19:57)
[2018-05-06 20:13] LABS: INR 0.9; PROTHROMBIN TIME 10.3 SECONDS (9.7-12.2)
[2018-05-06] MEDS: MethylPREDNISolone 40 mg Vial IV SCH (23:50)
[2018-05-07] MEDS: Albuterol-Ipratrop 3 mg / 0.5 (3 ml) UD INH SCH ×2 (01:05→19:58)
[2018-05-07] MEDS: MethylPREDNISolone 40 mg Vial IV SCH ×3 (06:33→21:59)
[2018-05-07] MEDS ORDERED: ZEBETA 5 MG PO SCH (10:00)
[2018-05-07] MEDS: Azithromycin 500 MG in Sodium Chloride 0.9% 250 ML IVPB SCH (10:38)
--- NOTE | 2018-05-07 11:31 | CARD ---
APPROVED REPORT Date of service: 05/06/2018 EKG Measurement Heart [id number] <Conclusion> Sinus rhythm with premature atrial complexes Right bundle branch block Abnormal ECG
[2018-05-07] MEDS: Acetylcysteine 20% Inhal Soln (4ml) INH SCH (19:57)
[2018-05-07] MEDS: Aztreonam 1 GM in Sodium Chloride 0.9% 100 ML IVPB SCH (22:00)
[2018-05-08] MEDS: Albuterol-Ipratrop 3 mg / 0.5 (3 ml) UD INH SCH ×4 (02:10→19:17)
[2018-05-08] MEDS: Acetylcysteine 20% Inhal Soln (4ml) INH SCH ×4 (02:20→19:16)
[2018-05-08] MEDS: Aztreonam 1 GM in Sodium Chloride 0.9% 100 ML IVPB SCH ×3 (05:28→23:38)
--- NOTE | 2018-05-08 06:12 | HP ---
HISTORY OF PRESENT ILLNESS: The patient is a 73-year-old Afghan male with history of multiple medical problems including advanced rheumatoid arthritis, coronary artery disease, status post coronary artery bypass graft, chronic obstructive lung disease, ex-smoker, presented to emergency room with symptoms of cough, mostly dry wheezing and shortness of breath. The patient was evaluated in emergency room, and he had a pulmonary consultation done by Dr. Malone, and the patient was admitted for further management. REVIEW OF SYSTEMS: Generalized weakness, unsteadiness, exertional shortness of breath. SOCIAL HISTORY Ex-smoker. No EtOH or substance abuse. FAMILY HISTORY Not contributory. PAST MEDICAL HISTORY: As above. MEDICATIONS: Reviewed and ordered as per AUG. PHYSICAL EXAMINATION: GENERAL: The patient is in bed, in mild respiratory distress during this examination. VITAL SIGNS: Blood pressure 104/67, temperature 98.2, respiratory rate 18, and pulse is 87. HEENT: Pupils equal and reactive to light. Normal-appearing mucosa of the conjunctivae, oropharynx, and nasal membrane mucosa. NECK: Supple. No JVD. LABORATORY DATA: Chest x-ray done in emergency room showed no significant interval changes compared to prior exam. ASSESSMENT: Exacerbation of chronic obstructive pulmonary disease, coronary artery disease, status post coronary artery bypass graft, hypertension, advanced rheumatoid arthritis with deformity. PLAN: IV antibiotics, bronchodilators, IV steroids. Resume the patient's home medications, physical therapy. Mercedez Larson MD
[2018-05-08] MEDS: MethylPREDNISolone 40 mg Vial IV SCH ×3 (06:14→22:37)
[2018-05-08] MEDS ORDERED: Levothyroxine 125 MCG TAB PO SCH (06:30)
--- NOTE | 2018-05-08 07:14 | CP.PCM.CON ---
History of Present Illness - History of Present Illness History of Present Illness: CONSULT DICTATED POST LAMINECTOMY SYNDROME EXAM = CERVICAL MYELOPATHY WITHOUT BLADDER IMPAIRMENT MRI C/SP DVT PROPHYLAXIS PT /FALL PRECAUTION CONTINUE BiPAP Past Patient History - Infectious Disease Hx of Infectious Diseases: None - Past Medical History & Family History Past Medical History?: Yes - Past Social History Smoking Status: Former Smoker - CARDIAC Hx Cardiac Disorders: Yes (CAD) Hx Congestive Heart Failure: No Hx Hypercholesterolemia: Yes Hx Hypertension: Yes - PULMONARY Hx Chronic Obstructive Pulmonary Disease (COPD): Yes - NEUROLOGICAL Hx Alzheimer's Disease: Yes Hx Seizures: No - HEENT Hx HEENT Problems: No - RENAL Hx Chronic Kidney Disease: No - ENDOCRINE/METABOLIC Hx Diabetes Mellitus Type 2: Yes Hx Hypothyroidism: No - HEMATOLOGICAL/ONCOLOGICAL Hx Human Immunodeficiency Virus (HIV): No - INTEGUMENTARY Hx Dermatological Problems: No - MUSCULOSKELETAL/RHEUMATOLOGICAL Hx Arthritis: Yes (BACK) Hx Rheumatoid Arthritis: No - GASTROINTESTINAL Hx Gastrointestinal Disorders: No - GENITOURINARY/GYNECOLOGICAL Hx Sexually Transmitted Disorders: No - PSYCHIATRIC Hx Substance Use: No - SURGICAL HISTORY Hx Coronary Artery Bypass Graft: Yes (1999) Hx Coronary Stent: Yes - ANESTHESIA Hx Anesthesia: Yes Hx Anesthesia Reactions: No Hx Malignant Hyperthermia: No Meds Allergies/Adverse Reactions: Allergies Allergy/AdvReac Type Severity Reaction Status Date / Time Penicillins Allergy Unknown RASH Verified 05/06/18 13:22 - Medications Medications: Current Medications Acetylcysteine (Acetylcysteine 20%) 2 ml INH RQ6 [facility] Last Admin: 05/08/18 02:20 Dose: Not Given Albuterol/Ipratropium (Duoneb 3 Mg/0.5 Mg (3 Ml) Ud) 3 ml INH RQ6 [facility] Last Admin: 05/08/18 02:10 Dose: 3 ml Bisoprolol Fumarate (Zebeta) 2.5 mg PO DAILY [facility] Calcium Carbonate (Oscal) 500 mg PO DAILY [facility] Last Admin: 05/07/18 09:58 Dose: 500 mg Clopidogrel Bisulfate (Plavix) 75 mg PO DAILY [facility] Last Admin: 05/07/18 09:56 Dose: 75 mg Docusate Sodium (Colace) 100 mg PO BID [facility] Last Admin: 05/07/18 17:46 Dose: 100 mg Fenofibrate (Tricor) 145 mg PO DAILY [facility] Last Admin: 05/07/18 09:58 Dose: 145 mg Furosemide (Lasix) 20 mg PO QOD6 [facility] Heparin Sodium (Porcine) (Heparin) 5,000 units SC Q8 [facility] Last Admin: 05/08/18 05:28 Dose: 5,000 units Hydroxychloroquine Sulfate (Plaquenil) 200 mg PO BID [facility]; Protocol Last Admin: 05/07/18 17:46 Dose: 200 mg Azithromycin 500 mg/ Sodium (Chloride) 250 mls @ 250 mls/hr IVPB DAILY [facility]; Protocol Last Admin: 05/07/18 10:38 Dose: 250 mls/hr Aztreonam 1 gm/ Sodium (Chloride) 100 mls @ 200 mls/hr IVPB Q8H [facility]; Protocol Last Admin: 05/08/18 05:28 Dose: 200 mls/hr Ketorolac Tromethamine (Toradol) 10 mg PO Q8 PRN PRN Reason: Pain Methylprednisolone (Solu-Medrol) 40 mg IV Q8H [facility] Last Admin: 05/08/18 06:14 Dose: 40 mg Montelukast Sodium (Singulair) 10 mg PO HS [facility] Last Admin: 05/07/18 21:59 Dose: 10 mg Pantoprazole Sodium (Protonix Inj) 40 mg IVP DAILY [facility] Last Admin: 05/07/18 09:34 Dose: 40 mg Rosuvastatin Calcium (Crestor) 10 mg PO HS [facility] Last Admin: 05/07/18 21:59 Dose: 10 mg Tamsulosin HCl (Flomax) 0.4 mg PO DAILY [facility] Last Admin: 05/07/18 09:57 Dose: 0.4 mg Tramadol HCl (Ultram) 50 mg PO TID PRN PRN Reason: Pain, moderate (4-7) Last Admin: 05/07/18 22:04 Dose: 50 mg Results - Vital Signs Recent Vital Signs: Last Vital Signs Temp 98.6 F 05/07/18 23:30 Pulse 92 H 05/08/18 03:00 Resp 20 05/07/18 23:30 BP 95/65 L 05/07/18 23:30 Pulse Ox 98 05/07/18 23:30 - Labs Result Diagrams: 05/06/18 14:23 05/06/18 14:23
[2018-05-08 07:26] LABS: BLOOD UREA NITROGEN 26 mg/dL (9-20)
[2018-05-08 07:27] LABS: CALCIUM 8.6 mg/dl (8.6-10.4); GFR NON-AFRICAN AMERICAN > 60
[2018-05-08 07:33] LABS: BASO % 0.1 % (0.0-2.0); HEMOGLOBIN 11.1 g/dL (12.0-18.0); LYMPH # 0.6 K/uL (1.0-4.3); LYMPH % 16.7 % (20.0-40.0); MEAN CELL VOLUME 99.9 fL (80.0-94.0); MEAN CORPUSCULAR HEMOGLOBIN 32.3 pg (27.0-31.0); MEAN CORPUSCULAR HGB CONC 32.3 g/dL (33.0-37.0); MEAN PLATELET VOLUME 11.1 fL (7.2-11.7); MONO # 0.4 K/uL (0.0-0.8); MONO % 10.9 % (0.0-10.0); NEUT # 2.5 K/uL (1.8-7.0); NEUT % 72.3 % (50.0-75.0); NRBC % 0.2 % (0.0-2.0); RBC 3.43 Mil/uL (4.40-5.90); RED CELL DISTRIBUTION WIDTH 16.4 % (11.5-14.5); WHITE BLOOD COUNT 3.4 K/uL (4.8-10.8)
[2018-05-08] MEDS: Azithromycin 500 MG in Sodium Chloride 0.9% 250 ML IVPB SCH (09:25)
--- NOTE | 2018-05-08 12:35 | MRI ---
Date of service: 05/08/2018 PROCEDURE: MR CERVICAL SPINE WITHOUT CONTRAST HISTORY: Status post laminectomy; rule out myelopathy left C5-C6 COMPARISON: Comparison made with plain film radiographs cervical spine 05/08/2018.. Comparison also made with CT scan chest 04/01/2018 which image the upper thoracic spine TECHNIQUE: Multi planar/multipulse weighted sequences of the cervical spine e without the use of intravenous contrast. FINDINGS: There is no evidence of acute compression fractures no retropulsed fragments.. Slight chronic appearing anterior stature loss of the C5 and to a lesser degree C6 segments felt to be degenerative in origin.. There is exaggeration of the normal cervical lordosis. Vertebral bodies and facets otherwise normally aligned. Note again made of short-segment bilateral Bae rods which are attached to the posterior elements of the T3 through the T6 segments although incompletely seen on this exam. Susceptibility artifact arising from the posterior fixation hardware partially obscures the canal and cord in the upper/mid thoracic region. Of. Laminectomy changes at several thoracic levels not appreciated on this study though visible on prior CT scan of the chest The cervical vertebral bodies exhibit marrow signal. Craniocervical junction. No definitive intrinsic signal changes seen within the visualized spinal cord. No paraspinal abnor soft tissue abnormalities ty. C2-C3: Mild age related disc desiccation with minor posterior disc space narrowing... No disc herniation or significant disc bulge. The overall central bony canal is quite capacious at this level. Facets are hypertrophic. Exit foramina appear narrowed bilaterally. C3-C4: Mild disc desiccation however disc space height relatively maintained. No disc herniation however there is minor broad-based disc bulge ridge complex.. The uncovertebral facet joints are hypertrophic former more so than latter with bilateral foraminal narrowing. C4-C5: Mild age related disc desiccation with minor posterior disc space narrowing.. Small broad-based disc bulge ridge complex also present contiguous with mildly hypertrophic uncovertebral joints. Facets are hypertrophic. Central canal appears adequate. Exit foramina are narrowed bilaterally. C5-C6: Disc desiccation with the disc desiccation with moderate-sized broad-based disc bulge ridge complex contiguous with hypertrophic uncovertebral joints. Facets also hypertrophic. Changes result in mild canal stenosis and cord compression. Exit foramina are stenotic bilaterally.. C6-C7: There is also a mild age related disc desiccation and mild posterior disc space narrowing with moderate-sized asymmetric broad-based disc bulge ridge complex that compresses the ventral surface of the cord right more so than left and results in mild cord compression. Exit foramina are narrowed bilaterally right greater than left. C7-T1: No disc herniation, spinal canal stenosis or neural foraminal narrowing. OTHER FINDINGS: Note made of opacification of the right mastoid air complex. IMPRESSION: No acute fractures. Exaggeration of the normal cervical lordosis. Multilevel bilateral posterior fixation upper/mid thoracic region incompletely seen along its inferior margins. Multilevel degenerative spondylosis most notably affecting the C5-C6 and C6-C7 levels however there are variable bilateral foraminal stenotic changes at nearly every level.. Opacification right mastoid air complex.
--- NOTE | 2018-05-08 13:34 | RAD ---
Date of service: 05/08/2018 PROCEDURE: Cervical Spine Radiographs. HISTORY: Pain. COMPARISON: Correlation is made with the MR exam 05/08/2018 at 10:39 a.m. FINDINGS: BONES: There is marked osteopenia. The skull base atlas and axis levels are markedly limited in their evaluation per the radiographs. Exaggerated cervical lordosis is also noted. There is limited visualization on these images of the dens. The C3-C4-C5-C6 and C7 vertebral body heights appear maintained. No gross subluxation from C2 through including C7-T1 is appreciated. DISC SPACES: Posterior C5-6 and C6-7 disc space narrowing exaggerated by the prominent cervical lordosis also noted. SOFT TISSUES: Grossly unremarkable. OTHER FINDINGS: Posterior upper thoracic spine short segmental paired Bae rods in place with inter pedicular screws. There is presence of aortic atherosclerotic calcification on x-ray. There is extensive opacification right mid lung zone also noted on images including the mid to upper lung zones. IMPRESSION: Severely limited exam. Of those vertebral bodies visualize namely C3, C4, C5-C6 and C7 no vertebral body fractures here seen. No gross subluxation at these levels noted. The exam is especially limited regarding the skull base atlas and axis. This includes markedly limited evaluation of the dens. For these areas please refer to the same-day MRI cervical spine study.
--- NOTE | 2018-05-08 15:14 | CON ---
DATE: 05/08/2018 ATTENDING PHYSICIAN Mercedez Larson MD. LOCATION: The patient's room number 657 bed B. REASON FOR CONSULTATION: Headache. CHIEF COMPLAINT: The patient was brought in with respiratory dysfunction. From neurological point of view I was called in to evaluate his chronic headache. HISTORY OF PRESENT ILLNESS: Brian Farrar is a 73-year-old right-handed male presenting with chronic neck pain for the last 3 years. The patient did have a cervical spinal surgery 3 years ago. Ever since he did have neck pain which is not radicular in nature. However, he admits left arm weakness which is not improved following surgery. No history of visual disturbances. No history of jaw claudication. No history of fever or losing weight. No history of radicular pain from his neck. No history of weakness of his leg and bowel or bladder incontinence. PAST MEDICAL HISTORY: Alzheimer's disease, arthritis, asthma, back arthritis, coronary artery disease, COPD, diabetes. PAST SURGICAL HISTORY: Status post neck surgeries in 2016, stent placement in 1999. REVIEW OF SYSTEMS: A 12-point system being reviewed. From neuro, progressive neck pain. SOCIAL HISTORY: Denies smoking or alcohol use. MEDICATIONS: Azithromycin, aztreonam, Colace, Crestor, Flomax, heparin subcu, Lasix, Os-Blayne, Plaquenil, Plavix, Protonix, montelukast, Toradol, TriCor, Zebeta. PHYSICAL EXAMINATION: VITAL SIGNS: Blood pressure 95/65, mean artery pressure of 75, respiratory rate 18, temperature afebrile, pulse rate 92. NECK: Supple. No carotid bruits. HEART: Mildly tachycardiac with systolic murmur. CHEST: Fair air entry. EXTREMITIES: Right leg externally rotated. Both arms are deformed, flexed ulnar deviated deformity with intrinsic muscle weakness noted. NEUROLOGIC EXAMINATION: Mental status examination, he is awake, alert and or to person, place and time. Speech is clear. Naming, repetition, fluency, comprehension intact. Cranial nerve examination, visual field intact. Decreased extraocular movement in all direction. No facial sensory deficit. No facial asymmetry. Hearing seems to be intact. Tongue is midline. Good gag. Motor examination, he could able to lift both upper extremities against the gravity, however, subjective weakness noted on his left side. He could lift both lower extremities against the gravity, however, he also felt weakness on lifting both legs. Deep tendon reflexes grossly absent in all extremities. Plantars are upgoing on both sides. Sensory examination is significant distal sensory motor neuropathy. However, position sense is intact. Examination of the temporal artery, no tenderness. No TMJ tenderness. 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 CONCLUSION: As per neurological examination, Mr. Brian Farrar presenting with headache which is all related to his cervical pathology. The current examination shows cervical myelopathy with possible left C5-C6 root involvement as well. The patient has a sensory motor neuropathy, which probably is secondary to his underlying systemic problem, particularly the rheumatoid arthritis. RECOMMENDATIONS: 1. MRI of the cervical spine. 2. Getting out of bed. Physical therapy. 3. Fall precaution should be maintained. 4. DVT prophylaxis. The patient will be followed closely with you. Adriano Robertson MD
--- NOTE | 2018-05-08 17:17 | PQF ---
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 Others Unable to determine. The patient's Clinical Indicators include: ?73 year old male with shortness of breath, generalized weakness, and productive cough with white phl egm for 3 days. H/P: Respiratory: Positive for: Cough productive, Shortness of Breath. Cardiovascular: Rhythm Regular, No Murmur Respiratory: Accessory Muscle Use, Rales on left lower lung field, abdomen breathing. Patient with low WBC: 3.3/3.4 CXR: LUNGS: Stable consolidative changes similar to that identified previously (CT 04/01/18). No significant interval change compared to the prior examination(s). CT 04/01/18: Lungs: Bibasilar dependent atelectatic changes and blending right lower lobe consolidation and blendi ng bibasilar bronchiectasis right side granter than the left. Subsegmental lingular consolidation and perifissural opacity-similar. Rx: Acetylcysteine 20% 2 ml INH RQ6 Albuterol/Ipratropium 3 Mg/0.5 Mg (3 Ml) INH RQ6 Azithromycin 500 mg/NaCl 250 mls @ 250 mls/hr IVPB DAILY Aztreonam 1 gm/NaCl 100 mls @ 200 mls/hr IVPB Q8H Last Admin: 05/08/18 05:28 Dose: 200 mls/hr Ketorolac Tromethamine 10 mg PO Q8 Methylprednisolone 40 mg IV Q8H Montelukast Sodium 10 mg PO HS Please consider verify documentation in order to clarify if the present clinical indicators match wit h Pneumonia. Query created by: Aristeo Swartz on 05/08/2018 11:52 AM Electronically signed by: Mercedez Larson MD 05/08/2018 5:14 PM
--- NOTE | 2018-05-08 18:21 | CP.PCM.PN ---
Subjective - Date & Time of Evaluation Date of Evaluation: 05/08/18 Time of Evaluation: 11:00 - Subjective Subjective: The patient seen and examined Dyspnea on minimal exertion BiPAP at night Afebrile Awake and responsive Seen by neurology Objective - Vital Signs/Intake and Output Vital Signs (last 24 hours): Temp Pulse Resp BP Pulse Ox 97.6 F 94 H 18 102/65 89 L 05/08/18 15:00 05/08/18 16:10 05/08/18 15:00 05/08/18 15:00 05/08/18 15:00 Intake and Output: 05/08/18 05/08/18 06:59 18:59 Intake Total 420 Output Total 350 Balance 70 - Medications Medications: Current Medications Acetylcysteine (Acetylcysteine 20%) 2 ml INH RQ6 [facility] Last Admin: 05/08/18 14:07 Dose: 2 ml Albuterol/Ipratropium (Duoneb 3 Mg/0.5 Mg (3 Ml) Ud) 3 ml INH RQ6 [facility] Last Admin: 05/08/18 14:07 Dose: 3 ml Bisoprolol Fumarate (Zebeta) 2.5 mg PO DAILY [facility] Last Admin: 05/08/18 09:27 Dose: Not Given Calcium Carbonate (Oscal) 500 mg PO DAILY [facility] Last Admin: 05/08/18 09:26 Dose: 500 mg Clopidogrel Bisulfate (Plavix) 75 mg PO DAILY [facility] Last Admin: 05/08/18 09:26 Dose: 75 mg Docusate Sodium (Colace) 100 mg PO BID [facility] Last Admin: 05/08/18 09:26 Dose: 100 mg Fenofibrate (Tricor) 145 mg PO DAILY [facility] Last Admin: 05/08/18 09:27 Dose: 145 mg Furosemide (Lasix) 20 mg PO QOD6 [facility] Heparin Sodium (Porcine) (Heparin) 5,000 units SC Q8 [facility] Last Admin: 05/08/18 14:17 Dose: 5,000 units Hydroxychloroquine Sulfate (Plaquenil) 200 mg PO BID [facility]; Protocol Last Admin: 05/08/18 09:27 Dose: 200 mg Azithromycin 500 mg/ Sodium (Chloride) 250 mls @ 250 mls/hr IVPB DAILY [facility]; Protocol Last Admin: 05/08/18 09:25 Dose: 250 mls/hr Aztreonam 1 gm/ Sodium (Chloride) 100 mls @ 200 mls/hr IVPB Q8H [facility]; Protocol Last Admin: 05/08/18 14:17 Dose: 200 mls/hr Ketorolac Tromethamine (Toradol) 10 mg PO Q8 PRN PRN Reason: Pain Last Admin: 05/08/18 12:23 Dose: 10 mg Lidocaine (Lidoderm) 1 ea TD DAILY PRN PRN Reason: Pain, Mild (1-3) Methylprednisolone (Solu-Medrol) 40 mg IV Q8H [facility] Last Admin: 05/08/18 14:17 Dose: 40 mg Montelukast Sodium (Singulair) 10 mg PO HS [facility] Last Admin: 05/07/18 21:59 Dose: 10 mg Pantoprazole Sodium (Protonix Inj) 40 mg IVP DAILY [facility] Last Admin: 05/08/18 09:26 Dose: 40 mg Rosuvastatin Calcium (Crestor) 10 mg PO HS [facility] Last Admin: 05/07/18 21:59 Dose: 10 mg Tamsulosin HCl (Flomax) 0.4 mg PO DAILY [facility] Last Admin: 05/08/18 09:26 Dose: 0.4 mg Tramadol HCl (Ultram) 50 mg PO TID PRN PRN Reason: Pain, moderate (4-7) Last Admin: 05/08/18 09:26 Dose: 50 mg - Labs Labs: 05/08/18 07:06 05/08/18 07:06 PT 10.3 SECONDS (9.7-12.2) 05/06/18 20:02 INR 0.9 05/06/18 20:02 APTT 37 SECONDS (21-34) H 05/06/18 20:02 - Head Exam Head Exam: ATRAUMATIC, NORMOCEPHALIC - ENT Exam ENT Exam: Mucous Membranes Moist - Neck Exam Neck Exam: Normal Inspection - Respiratory Exam Respiratory Exam: Decreased Breath Sounds Assessment and Plan (1) Hypercapnic respiratory failure Assessment & Plan: continue BiPAP at night and as needed Nebulizer treatment IV steroids Antibiotics Seen by neurology Followup ABG Status: Acute (2) COPD exacerbation Status: Acute (3) Sleep apnea, obstructive Status: Chronic
--- NOTE | 2018-05-08 18:24 | CT ---
Date of service: 05/08/2018 PROCEDURE: CT HEAD WITHOUT CONTRAST. HISTORY: Headache COMPARISON: None available. TECHNIQUE: Axial computed tomography images were obtained through the head/brain without intravenous contrast. Radiation dose: Total exam DLP = 980.92 mGy-cm. This CT exam was performed using one or more of the following dose reduction techniques: Automated exposure control, adjustment of the mA and/or kV according to patient size, and/or use of iterative reconstruction technique. FINDINGS: HEMORRHAGE: No intracranial hemorrhage. BRAIN: There are mild chronic microangiopathic changes. 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 There is no mass, mass effect or abnormal extra-axial fluid collection. There is no territorial infarction. The midline sagittal structures are normal.There are coarse atherosclerotic calcifications in the cavernous carotid arteries. VENTRICLES: There is moderate age-related global parenchymal volume loss and proportionate enlargement of the ventricles and cortical sulci. CALVARIUM: There is no calvarial fracture or extracranial soft tissue swelling. PARANASAL SINUSES: Predominantly clear. MASTOID AIR CELLS: There are bilateral mastoid effusions. OTHER FINDINGS: None. IMPRESSION: No acute intracranial abnormality. Mild chronic microangiopathic changes and moderate age-related global parenchymal volume loss. Bilateral mastoid effusions.
[2018-05-08] MEDS: Lidocaine 5% Patch TD PRN (18:27)
[2018-05-08 19:29] LABS: CK-MB 4.34 ng/mL (0.0-3.38); TROPONIN I 0.021 ng/mL (0.00-0.120)
--- NOTE | 2018-05-08 23:20 | PN ---
DATE: 05/08/2018 SUBJECTIVE: The patient is seen today 05/08/2018. He is still having cough and shortness of breath and he has occipital pain with neck pain. OBJECTIVE: VITAL SIGNS: Blood pressure 102/65, temperature 97.6, respiratory rate 18 and pulse 94. HEENT: Pupils equal, reactive to light. Normal-appearing mucosa of the conjunctivae, oropharynx and nasal membrane mucosa. NECK: Supple. No JVD. No carotid bruit. No lymph node. No thyromegaly. CHEST: Lungs, bilateral symmetrical expansion. Good air exchange. No rales, no rhonchi. CARDIOVASCULAR SYSTEM: PMI not localized. S1, S2. No additional sounds. ABDOMEN: Normoactive bowel sounds. No tenderness. No organomegaly. No masses. EXTREMITIES: No cyanosis, no clubbing, no edema. [employer]: Alert, awake, oriented x2. No neurological deficit could be appreciated. ASSESSMENT: 1. Chronic alveolar airway disease with acute bronchitis and exacerbation of chronic obstructive pulmonary disease. 2. Next advanced rheumatoid arthritis with deformity of both hands. 3. Osteoarthritis. 4. Coronary artery disease, status post coronary artery bypass graft. 5. Hypertension. 6. Type 2 diabetes mellitus. 7. Hypercapnic respiratory failure. PLAN: We will follow with Neurology and MRI of the cervical spine. We will do Lidoderm patch to the cervical spine area. Continue Mucomyst, antibiotics, bronchodilators and steroids. Follow pulmonary recommendations. Mercedez Larson MD
[2018-05-09] MEDS: Acetylcysteine 20% Inhal Soln (4ml) INH SCH ×4 (02:26→20:10)
[2018-05-09] MEDS: Albuterol-Ipratrop 3 mg / 0.5 (3 ml) UD INH SCH ×4 (02:27→20:10)
[2018-05-09] MEDS: Aztreonam 1 GM in Sodium Chloride 0.9% 100 ML IVPB SCH ×3 (05:20→21:38)
[2018-05-09] MEDS: MethylPREDNISolone 40 mg Vial IV SCH ×2 (06:07→14:42)
[2018-05-09] MEDS: Azithromycin 500 MG in Sodium Chloride 0.9% 250 ML IVPB SCH (10:07)
--- NOTE | 2018-05-09 12:15 | PN ---
DATE: 05/09/2018 TIME OF EVALUATION: 7.10. a.m. SUBJECTIVE: Neurological problem, post laminectomy pain syndrome. The patient is currently presenting with severe cervical myelopathy with cervical radiculopathy. PHYSICAL EXAMINATION VITAL SIGNS: Blood pressure 116/76, mean arterial pressure of 89, respiratory rate 18, temperature afebrile. The patient claims that his headache and neck pain is some what improved. Moves all four extremities. The examination is unchanged. The patient needs active physical therapy during hospitalization as well as following discharge from the hospital. The patient can be benefited of having electrodiagnostic studies to assess his radiculopathy with the neuropathy. The patient can be benefited of giving a muscle relaxant with gabapentin that can be increased and titrated slowly. Ultram can be tapered off because of a difficult this should be avoided. The patient will be followed up closely with you. Adriano Robertson MD
--- NOTE | 2018-05-09 13:31 | CP.PCM.PN ---
Subjective - Date & Time of Evaluation Date of Evaluation: 05/09/18 Time of Evaluation: 10:50 - Subjective Subjective: the patient seen and examined Still complaining of shortness of on minimal exertion On BiPAP Afebrile No chest pain Objective - Vital Signs/Intake and Output Vital Signs (last 24 hours): Temp Pulse Resp BP Pulse Ox 97.9 F 93 H 18 99/61 L 90 L 05/09/18 07:15 05/09/18 07:15 05/09/18 07:15 05/09/18 07:15 05/09/18 07:15 Intake and Output: 05/09/18 05/09/18 06:59 18:59 Output Total 450 Balance -450 - Medications Medications: Current Medications Acetylcysteine (Acetylcysteine 20%) 2 ml INH RQ6 [facility] Last Admin: 05/09/18 13:29 Dose: 2 ml Albuterol/Ipratropium (Duoneb 3 Mg/0.5 Mg (3 Ml) Ud) 3 ml INH RQ6 [facility] Last Admin: 05/09/18 13:29 Dose: 3 ml Baclofen (Lioresal) 10 mg PO DAILY [facility] Last Admin: 05/09/18 10:04 Dose: 10 mg Bisoprolol Fumarate (Zebeta) 2.5 mg PO DAILY [facility] Last Admin: 05/09/18 10:04 Dose: 2.5 mg Calcium Carbonate (Oscal) 500 mg PO DAILY [facility] Last Admin: 05/09/18 10:04 Dose: 500 mg Clopidogrel Bisulfate (Plavix) 75 mg PO DAILY [facility] Last Admin: 05/09/18 10:04 Dose: 75 mg Cyanocobalamin (Vitamin B12 1000 Mcg/Ml Inj) 1,000 mcg IM DAILY [facility] Stop: 05/12/18 23:59 Last Admin: 05/09/18 10:15 Dose: 1,000 mcg Docusate Sodium (Colace) 100 mg PO BID [facility] Last Admin: 05/09/18 10:04 Dose: 100 mg Fenofibrate (Tricor) 145 mg PO DAILY [facility] Last Admin: 05/09/18 10:04 Dose: 145 mg Furosemide (Lasix) 20 mg PO QOD6 [facility] Last Admin: 05/08/18 18:26 Dose: 20 mg Gabapentin (Neurontin) 300 mg PO BID [facility] Last Admin: 05/09/18 10:04 Dose: 300 mg Heparin Sodium (Porcine) (Heparin) 5,000 units SC Q8 [facility] Last Admin: 05/09/18 05:21 Dose: 5,000 units Hydroxychloroquine Sulfate (Plaquenil) 200 mg PO BID [facility]; Protocol Last Admin: 05/09/18 10:04 Dose: 200 mg Azithromycin 500 mg/ Sodium (Chloride) 250 mls @ 250 mls/hr IVPB DAILY [facility]; Protocol Last Admin: 05/09/18 10:07 Dose: 250 mls/hr Aztreonam 1 gm/ Sodium (Chloride) 100 mls @ 200 mls/hr IVPB Q8H [facility]; Protocol Last Admin: 05/09/18 05:20 Dose: 200 mls/hr Ketorolac Tromethamine (Toradol) 10 mg PO Q8 PRN PRN Reason: Pain Last Admin: 05/09/18 08:24 Dose: 10 mg Lidocaine (Lidoderm) 1 ea TD DAILY PRN PRN Reason: Pain, Mild (1-3) Last Admin: 05/08/18 18:27 Dose: 1 ea Methylprednisolone (Solu-Medrol) 40 mg IV Q8H [facility] Last Admin: 05/09/18 06:07 Dose: 40 mg Montelukast Sodium (Singulair) 10 mg PO HS [facility] Last Admin: 05/08/18 22:38 Dose: 10 mg Pantoprazole Sodium (Protonix Inj) 40 mg IVP DAILY [facility] Last Admin: 05/09/18 10:05 Dose: 40 mg Rosuvastatin Calcium (Crestor) 10 mg PO HS [facility] Last Admin: 05/08/18 23:38 Dose: Not Given Tamsulosin HCl (Flomax) 0.4 mg PO DAILY [facility] Last Admin: 05/09/18 10:04 Dose: 0.4 mg Tramadol HCl (Ultram) 50 mg PO TID PRN PRN Reason: Pain, moderate (4-7) Last Admin: 05/09/18 11:52 Dose: 50 mg - Labs Labs: 05/08/18 07:06 05/08/18 07:06 PT 10.3 SECONDS (9.7-12.2) 05/06/18 20:02 INR 0.9 05/06/18 20:02 APTT 37 SECONDS (21-34) H 05/06/18 20:02 - Head Exam Head Exam: ATRAUMATIC, NORMOCEPHALIC - ENT Exam ENT Exam: Mucous Membranes Moist - Neck Exam Neck Exam: Normal Inspection - Respiratory Exam Respiratory Exam: Decreased Breath Sounds - Cardiovascular Exam Cardiovascular Exam: REGULAR RHYTHM Assessment and Plan (1) Hypercapnic respiratory failure Assessment & Plan: Followup ABG Continue BiPAP Continue steroids and nebulizer treatment On antibiotics Physical therapy Neurology workup Status: Acute (2) COPD exacerbation Status: Acute (3) Sleep apnea, obstructive Status: Chronic
[2018-05-09 15:56] VITALS: RESP 20
[2018-05-09] MEDS: Lidocaine 5% Patch TD PRN (17:45)
--- NOTE | 2018-05-09 23:48 | CARD ---
APPROVED REPORT Date of service: 05/08/2018 EKG Measurement Heart [id number] [id number] <Conclusion> Normal sinus rhythm Right bundle branch block Inferior infarct, age undetermined Abnormal ECG
[2018-05-10] MEDS: Albuterol-Ipratrop 3 mg / 0.5 (3 ml) UD INH SCH ×3 (04:02→13:46)
[2018-05-10] MEDS: Acetylcysteine 20% Inhal Soln (4ml) INH SCH ×3 (04:02→13:46)
[2018-05-10] MEDS: Aztreonam 1 GM in Sodium Chloride 0.9% 100 ML IVPB SCH (05:35)
[2018-05-10] MEDS: MethylPREDNISolone 40 mg Vial IV SCH ×2 (06:06)
[2018-05-10 08:34] VITALS: BP 121/74; PULSE 73; TEMP 98; O2SAT 100
[2018-05-10 10:40] LABS: CK-MB 3.45 ng/mL (0.0-3.38); TROPONIN I 0.043 ng/mL (0.00-0.120)
[2018-05-10] MEDS: Azithromycin 500 MG in Sodium Chloride 0.9% 250 ML IVPB SCH (13:30)
--- NOTE | 2018-05-10 14:39 | CP.PCM.PN ---
Subjective - Date & Time of Evaluation Date of Evaluation: 05/10/18 Time of Evaluation: 12:45 - Subjective Subjective: patient seen and examined Still complaining off shortness of breath Chest pain on the left side on deep inspiration Afebrile Patient to be transferred to subacute Continue nebulizer treatment taper steroids BiPAP Objective - Vital Signs/Intake and Output Vital Signs (last 24 hours): Temp Pulse Resp BP Pulse Ox 98.0 F 73 20 121/74 100 05/10/18 07:00 05/10/18 07:00 05/10/18 07:00 05/10/18 07:00 05/10/18 07:00 Intake and Output: 05/10/18 05/10/18 06:59 18:59 Output Total 250 Balance -250 - Medications Medications: Current Medications Acetylcysteine (Acetylcysteine 20%) 2 ml INH RQ6 [facility] Last Admin: 05/10/18 13:46 Dose: Not Given Albuterol/Ipratropium (Duoneb 3 Mg/0.5 Mg (3 Ml) Ud) 3 ml INH RQ6 [facility] Last Admin: 05/10/18 13:46 Dose: Not Given Baclofen (Lioresal) 10 mg PO DAILY [facility] Last Admin: 05/10/18 10:47 Dose: 10 mg Bisoprolol Fumarate (Zebeta) 2.5 mg PO DAILY [facility] Last Admin: 05/10/18 10:46 Dose: 2.5 mg Calcium Carbonate (Oscal) 500 mg PO DAILY [facility] Last Admin: 05/10/18 10:46 Dose: 500 mg Clopidogrel Bisulfate (Plavix) 75 mg PO DAILY [facility] Last Admin: 05/10/18 10:46 Dose: 75 mg Cyanocobalamin (Vitamin B12 1000 Mcg/Ml Inj) 1,000 mcg IM DAILY [facility] Stop: 05/12/18 23:59 Last Admin: 05/10/18 10:47 Dose: 1,000 mcg Docusate Sodium (Colace) 100 mg PO BID [facility] Last Admin: 05/10/18 10:47 Dose: 100 mg Fenofibrate (Tricor) 145 mg PO DAILY [facility] Last Admin: 05/10/18 10:46 Dose: 145 mg Furosemide (Lasix) 20 mg PO QOD6 [facility] Last Admin: 05/08/18 18:26 Dose: 20 mg Gabapentin (Neurontin) 300 mg PO BID [facility] Last Admin: 05/10/18 10:47 Dose: 300 mg Hydroxychloroquine Sulfate (Plaquenil) 200 mg PO BID [facility]; Protocol Last Admin: 05/10/18 10:46 Dose: 200 mg Azithromycin 500 mg/ Sodium (Chloride) 250 mls @ 250 mls/hr IVPB DAILY [facility]; Protocol Last Admin: 05/10/18 13:30 Dose: 250 mls/hr Aztreonam 1 gm/ Sodium (Chloride) 100 mls @ 200 mls/hr IVPB Q8H [facility]; Protocol Last Admin: 05/10/18 05:35 Dose: 200 mls/hr Ketorolac Tromethamine (Toradol) 10 mg PO Q8 PRN PRN Reason: Pain Last Admin: 05/10/18 08:04 Dose: 10 mg Lidocaine (Lidoderm) 1 ea TD DAILY PRN PRN Reason: Pain, Mild (1-3) Last Admin: 05/09/18 17:45 Dose: 1 ea Methylprednisolone (Solu-Medrol) 40 mg IV Q12H [facility] Montelukast Sodium (Singulair) 10 mg PO HS [facility] Last Admin: 05/09/18 21:38 Dose: 10 mg Pantoprazole Sodium (Protonix Inj) 40 mg IVP DAILY [facility] Last Admin: 05/10/18 10:47 Dose: 40 mg Rosuvastatin Calcium (Crestor) 10 mg PO HS [facility] Last Admin: 05/09/18 21:39 Dose: 10 mg Tamsulosin HCl (Flomax) 0.4 mg PO DAILY [facility] Last Admin: 05/10/18 10:46 Dose: 0.4 mg Tramadol HCl (Ultram) 50 mg PO TID PRN PRN Reason: Pain, moderate (4-7) Last Admin: 05/10/18 13:51 Dose: 50 mg - Labs Labs: 05/08/18 07:06 05/08/18 07:06 PT 10.3 SECONDS (9.7-12.2) 05/06/18 20:02 INR 0.9 05/06/18 20:02 APTT 37 SECONDS (21-34) H 05/06/18 20:02 Assessment and Plan (1) Hypercapnic respiratory failure Status: Acute (2) COPD exacerbation Status: Acute (3) Sleep apnea, obstructive Status: Chronic
[2018-05-10] MEDS ORDERED: MethylPREDNISolone 40 mg Vial IV SCH (18:00)
--- NOTE | 2018-05-11 02:14 | PN ---
DATE: 05/09/2018 SUBJECTIVE: This patient is seen on 05/09/2018. The patient was complaining of neck pain as well as of back pain and headache. The patient also was complaining of wheezing and shortness of breath. PHYSICAL EXAMINATION: VITAL SIGNS: Blood pressure 104/61, temperature 97.3, respiratory rate 20, and pulse 65. HEENT: Pupils equal, reactive to light. Normal-appearing mucosa of the conjunctivae, oropharynx, and nasal membrane mucosa. NECK: Supple. No JVD. No carotid bruit. No lymph node. No thyromegaly. CHEST AND LUNGS: Bilateral symmetrical expansion. Good air exchange. No rales. The patient has rhonchi all over lung gardiner. CARDIOVASCULAR SYSTEM: PMI not localized. S1, S2. No additional sounds. ABDOMEN: Normoactive bowel sounds. No tenderness. No organomegaly. No masses. EXTREMITIES: No cyanosis, no clubbing, no edema. CENTRAL NERVOUS SYSTEM: Alert, awake, oriented x2. No neurological deficit could be appreciated. ASSESSMENT: Exacerbation of chronic obstructive pulmonary disease, hypercapnic respiratory failure, hypertension, type 2 diabetes mellitus, and advanced rheumatoid arthritis. PLAN: Continue BiPAP intermittently and otherwise continue [id number] dose nasal cannula oxygen. Continue steroid and current antibiotics. Mercedez Larson MD
--- NOTE | 2018-05-11 18:57 | DS ---
REASON FOR ADMISSION: This is a 73-year-old Afghan male with history of multiple medical problems presented and admitted for exacerbation of chronic obstructive pulmonary disease with hypercapnic respiratory failure. COURSE OF HOSPITALIZATION: The patient was admitted to medical floor and he was started on bronchodilators as well as steroid. The patient also was given antibiotics. Symptoms were improving. The patient was complaining of neck pain that radiates to the head, and he had an MRI done and neurology consultation also done, and the patient does have degenerative spine disease. The patient was started also on physical therapy and he was discharged to transitional care unit at [facility] to continue the current management and physical therapy. FINAL DIAGNOSES: Hypercapnic respiratory failure, exacerbation of chronic obstructive pulmonary disease, type 2 diabetes mellitus, advanced rheumatoid arthritis. Nicci MD Neo
--- NOTE | 2018-05-12 15:06 | CARD ---
APPROVED REPORT Date of service: 05/10/2018 EKG Measurement Heart [id number] [id number] <Conclusion> Normal sinus rhythm Right bundle branch block Inferior infarct, age undetermined Abnormal ECG
== END 2018-05-10 17:00 | disposition designated cancer center or children's hospital (05) | DRG 190 ==
LOC: C.ER 13:05 → C.9E 16:15 → C.6T 19:11 → OBSVTOIN 05-07 17:01
PROVIDERS: ADMIT Internal Medicine; ATTEND Internal Medicine
DX: J44.1 Chronic obstructive pulmonary disease with (acute) exacerbation (principal); J96.92 Respiratory failure, unspecified with hypercapnia; J44.0 Chronic obstructive pulmonary disease with (acute) lower respiratory infection; I11.0 Hypertensive heart disease with heart failure; I25.10 Atherosclerotic heart disease of native coronary artery without angina pectoris; E78.5 Hyperlipidemia, unspecified; E11.9 Type 2 diabetes mellitus without complications; G30.9 Alzheimer's disease, unspecified; F02.80 Dementia in other diseases classified elsewhere, unspecified severity, without behavioral disturbance, psychotic disturbance, mood disturbance, and anxiety; G47.33 Obstructive sleep apnea (adult) (pediatric); G89.29 Other chronic pain; M06.9 Rheumatoid arthritis, unspecified; M54.12 Radiculopathy, cervical region; Z87.891 Personal history of nicotine dependence; Z95.5 Presence of coronary angioplasty implant and graft